=== PATIENT | female | born 1935 | race Caucasian/White ===

== ENCOUNTER 2018-08-23 10:44 | Inpatient (IN) ==
--- NOTE | 2018-08-23 12:23 | CT ---
EXAM: CT abdomen pelvis without contrast HISTORY: Nausea and vomiting with fever COMPARISON: None TECHNIQUE: Serial axial images of the abdomen pelvis were performed from the lung bases through the inferior pelvis without contrast. These were viewed in multiple planes. FINDINGS: The lung bases are clear. The heart is unremarkable. Evaluation is limited due to lack of contrast. The liver is unremarkable. Gallstones are present wi thout pericholecystic fluid or significant wall thickening. Adrenal glands are normal. There is a l ow attenuation exophytic lesion of the right kidney measuring 4.6 cm in diameter with indeterminate H ounsfield units. There is a exophytic lesion off the inferior aspect of the left kidney with Hounsfi eld units consistent with a cyst that measures 3.0 cm in diameter. The spleen is unremarkable. The pancreas is normal. There is a small hiatal hernia. The stomach and small bowel in the abdomen pelvis are unremarkable. The colon demonstrates sigmoid d iverticulosis with no discrete inflammatory changes and is largely decompressed. Colon is otherwise unremarkable. There is a fat-containing umbilical hernia. Pelvic soft tissues are normal. Urinary bladder is unremarkable. There is moderate atherosclerotic disease. The osseous structures demonstr ate degenerative disease of the lumbosacral spine with trace anterolisthesis of L4 on L5. IMPRESSION: 1. No acute intra-abdominal or pelvic process to account for patient's symptoms. 2. Diverticulosis without diverticulitis. 3. Gallstones without significant pericholecystic fluid or definitive wall thickening. If further e valuation is indicated, ultrasound may be obtained. 4. Bilateral low attenuation renal lesions suggestive of cysts with indeterminate Hounsfield units o f the right superior pole low attenuation lesion. If further evaluation is indicated, renal ultrasou nd may be obtained. 5. Small hiatal hernia and fat containing umbilical hernia. 6. Degenerative disease of the spine with grade 1 anterolisthesis of L4 on L5.
--- NOTE | 2018-08-23 12:28 | CT ---
EXAM: CT thoracic spine without contrast HISTORY: Back pain. COMPARISON: CT thoracic spine 05/13/2016 TECHNIQUE: Serial axial images of the thoracic spine were obtained without contrast. These were vie wed in multiple planes. FINDINGS: There is no acute compression fracture or subluxation. There is multilevel disc space narr owing and osteophyte formation. There is moderate facet arthropathy. No lytic or blastic lesion is noted. Previously noted T7-T8. Posterior bony spurring is unchanged. There is no significant abnor mal curvature of the thoracic spine. Limited views of the posterior ribs are normal. There is uncha nged central narrowing at C7-T1. There is been no significant interval change from prior CT. The limited views of the soft tissues demonstrate mild bibasilar atelectasis. There is atherosclerot ic disease of the visualized vessels. IMPRESSION: 1. No acute compression fracture or subluxation of the thoracic spine. 2. Relatively unchanged multilevel degenerative disease of the thoracic spine with mild central narr owing at C7-T1. If further evaluation is clinically indicated, MRI may be obtained.
--- NOTE | 2018-08-23 12:30 | CT ---
EXAM: CT right shoulder without contrast HISTORY: Right shoulder pain with fever and history of heavy lifting. COMPARISON: None TECHNIQUE: Serial axial images of the right shoulder were obtained without contrast. These were vie wed in multiple planes. FINDINGS: The scapula and clavicle demonstrate degenerative disease of the acromioclavicular joint. There is narrowing and osteophyte formation of the glenohumeral joint. The humerus is normal in appe arance. There is no displaced fracture or dislocation. There is no lytic or blastic lesion. The so ft tissues are normal. IMPRESSION: 1. No acute abnormality, fracture or dislocation of the right shoulder. 2. Moderate degenerative disease of the acromioclavicular joint and the glenohumeral joint.
--- NOTE | 2018-08-23 12:33 | CT ---
EXAM: CT LUMBAR SPINE HISTORY: Fever, back pain TECHNIQUE: CT lumbar spine without contrast. 3-mm axial sections. Coronal and sagittal reformation s. COMPARISON: 05/27/2016 FINDINGS: Bones are demineralized. There is diffuse moderate to severe degenerative disc and facet disease. N o acute fracture or significant loss of vertebral body height. Chronic right-sided pars defect at L4. Anterior spondylolisthesis of L4 on L5 is present measuring a bout 3.9 mm. The there is scoliosis convex to the left. Sacroiliac joints have moderate arthropathy . The degenerative changes lead to multilevel central neural foraminal stenosis most apparent at L4/L5 where there is severe central and left paracentral stenosis with moderate to severe left neural maddi inal narrowing. There is also severe stenosis at L3/L4 with bilateral neural foraminal narrowing. T here is a posterior bony spur at L2 which leads to focal central canal stenosis. No evidence of end plate destruction or paraspinal inflammation to indicate osteomyelitis or active d iskitis although correlation clinically can be made. MRI is available if indicated. Incidental find ings include cholelithiasis, atherosclerosis, kidneys cysts and dependent edema along the subcutaneou s level of the lower back. IMPRESSION: 1. Severe degenerative disc and facet disease most apparent at L4/L5. There is unilateral pars defe ct at L4 with anterior spondylolisthesis. These findings are likely symptomatic. No acute fracture is seen.
[2018-08-23] MEDS ORDERED: ROCEPHIN 1 GM in SODIUM CHLORIDE 50 ML IV STA (13:37)
--- NOTE | 2018-08-23 13:37 | ED.PDOC ---
General ED Provider: Dr. JOEY FOUNTAIN Chief Complaint: Back Pain Stated Complaint: low and mid back pain , right leg pain and rash Time Seen by Physician: 11:00 (seen with thelma from EMS) Mode of Arrival: Wheelchair Information Source: Patient Exam Limitations: No limitations Primary Care Provider: JULIO PORRAS Nursing and Triage Documentation Reviewed and Agree: Yes Does patient meet sepsis criteria?: Yes If yes, has appropriate treatment been initiated?: Yes System Inflammatory Response Syndrome: Not Applicable Sepsis Protocol: For patient's 13 years and over: Temp is 96.8 and below OR 101 and greater Pulse >90 BPM Resp >20/minute Acutely Altered Mental Status Are patient's symptoms suggestive of a new infection, such as: -Pneumonia -Skin, Soft Tissue -Endocarditis -UTI -Bone, Joint Infection -Implantable Device -Acute Abdominal Infection -Wound Infection -Meningitis -Blood Stream Catheter Infection -Unknown Miscellaneous Complaint Exam - Complex/Multi-System Complaint/Exam Onset/Duration: PT LIFTED A HEAVY OBJECT NOW HAS BACK PAIN ALSO A RASH RIGHT LOWER LEG Symptoms Are: Still present Episodes Lasting: Hours Initial Severity: Moderate Current Severity: Moderate Location of Pain: BACK RIGHT LEG Pain Radiates to: NO Character: DULL Aggravating: NONE Alleviating: NONE Associated Signs and Symptoms: Reports: Weakness, Edema (RIGHT LEG). Denies: Decreased responsiveness, Confusion, Agitation, Dizziness, Syncope, Headache, Short of air, Cough, Wheezing, Hemoptysis, Chest pain, Palpitations, Nausea, Vomiting, Diarrhea, Abdominal pain, Back pain, Dysuria, Hematemesis, Melena, Decreased oral intake, Fever, Diaphoresis, Immunocompromised, Anticoagulation Therapy, Recent medication changes, Indwelling medical device assembler, Prior MRSA, Prior VRE, Recent trauma, Remote trauma Recent Echo/LV Function: No Respiratory Distress: None JVD Present: No Tachypnea Present: No Stridor Present: No Abdominal Findings: Present: Normal findings Glascow Coma Scale (see protocol): 15 Meningeal Signs Positive: No Focal Weakness: Present: None Focal Sensory Loss: Present: None Gait: Normal Gag Reflex Present: Yes Babinski Sign: Negative Right, Negative Left Skin Findings: Present: Rash (RIGHT LEG SEE PHOTO) Joint Swelling Present: No Differential Diagnosis: Metabolic Abnormality, Other (CELLULITIS) Quality Indicators for Cardiac Chest Pain: EKG in 10min. Quality Indicators For Pneumonia/CAP: Antibiotics in 6hr-admit, SpO2 assessed, Empiric Antibiotic Rx, Mental status assessed Quality Indicator For Non-Traumatic Chest Pain/Syncope: EKG Performed Review of Systems - Review Of Systems Constitutional: Reports: Malaise, Weakness Eyes: Reports: No symptoms Ears, Nose, Mouth, Throat: Reports: No symptoms Respiratory: Reports: Cough Cardiac: Reports: No symptoms GI: Reports: No symptoms : Reports: No symptoms Musculoskeletal: Reports: Back pain, Other (EDEMA BILATERAL LOWER EXT) Skin: Reports: Rash (RIGHT LOWER LEG SEE PHOTOS) Neurological: Reports: No symptoms Endocrine: Reports: No symptoms Hematologic/Lymphatic: Reports: No symptoms All Other Systems: Reviewed and Negative Past Medical History - Past Medical History Previously Healthy: Yes Endocrine: Reports: DM 2, Dyslipidemia Cardiovascular: Reports: Hypertension Respiratory: Reports: None Hematological: Reports: None Gastrointestinal: Reports: GERD Genitourinary: Reports: None Neuro/Psych: Reports: None Musculoskeletal: Reports: None Cancer: Reports: None Last Menstrual Period: menopause - Surgical History General Surgical History: Reports: None - Family History Family History: Reports: None - Social History Smoking Status: Never smoker Hx Substance Use: No Alcohol Screening: None Physical Exam - Physical Exam Appearance: Ill-appearing Ill-appearing: Mild Pain Distress: Mild Eyes: FRANK, EOMI, Conjunctiva clear ENT: Ears normal, Nose normal, Oropharynx normal Respiratory: Airway patent, Breath sounds clear, Breath sounds equal, Respirations nonlabored Cardiovascular: RRR, Pulses normal, No rub, No murmur GI/: Soft, Nontender, No masses, Bowel sounds normal, No Organomegaly Musculoskeletal: Normal strength, ROM intact, No edema, No calf tenderness Skin: Warm, Dry (RASH RIGHT LEG SEE PHOOTS) Neurological: Sensation intact, Motor intact, Reflexes intact, Cranial nerves intact, Alert, Oriented Psychiatric: Affect appropriate, Mood appropriate Interpretation - Radiology Interpretation Radiology Interpretation By: Radiologist Radiology Results: No acute changes Physician Notification - Case Discussed Physician Notified: PMD Time of Notification: 13:42 (ADMITT PMD SAW PT IN THE ED ) Admit To: Inpatient Critical Care Note - Critical Care Note Total Time (mins): 0 Course - Course Hematology/Chemistry: 08/23/18 11:08 08/23/18 11:08 Orders, Labs, Meds: Lab Review 08/23/18 08/23/18 08/23/18 10:51 11:08 11:08 WBC 16.09 H RBC 4.18 L Hgb 10.7 L Hct 34.9 L MCV 83.5 MCH 25.6 L MCHC 30.7 L RDW Coeff of Corby 17.0 H Plt Count 264 Immature Gran % (Auto) 0.4 Neut % (Auto) 84.8 Lymph % (Auto) 9.2 L Cass % (Auto) 5.5 Eos % (Auto) 0.0 Baso % (Auto) 0.1 Immature Gran # (Auto) 0.1 Neut # (Auto) 13.6 H Lymph # (Auto) 1.5 Cass # (Auto) 0.9 Eos # (Auto) 0.0 Baso # (Auto) 0.0 Puncture Site R radial O2 Saturation 95.0 ABG pH 7.422 ABG pCO2 30.9 L ABG pO2 71.0 L ABG HCO3 20.2 L ABG Total CO2 21 L ABG Base Excess -4 L Willis Test + FiO2 % 21.0 Sodium 134.1 L Potassium 4.21 Chloride 101.2 Carbon Dioxide 22.9 Anion Gap 14.21 BUN 21.4 H Creatinine 0.79 Estimated GFR (MDRD) 70.00 BUN/Creatinine Ratio 27.08 Glucose 90.5 Lactic Acid Calcium 9.07 Total Bilirubin 0.64 AST 24.0 ALT 19.1 Alkaline Phosphatase 43.6 L Total Creatine Kinase 34.1 Troponin I < 0.012 NT-Pro-B Natriuret Pep Total Protein 6.71 Albumin 3.82 Globulin 2.89 Albumin/Globulin Ratio 1.32 Procalcitonin Digoxin 08/23/18 08/23/18 08/23/18 11:08 11:08 11:08 WBC RBC Hgb Hct MCV MCH MCHC RDW Coeff of Corby Plt Count Immature Gran % (Auto) Neut % (Auto) Lymph % (Auto) Cass % (Auto) Eos % (Auto) Baso % (Auto) Immature Gran # (Auto) Neut # (Auto) Lymph # (Auto) Cass # (Auto) Eos # (Auto) Baso # (Auto) Puncture Site O2 Saturation ABG pH ABG pCO2 ABG pO2 ABG HCO3 ABG Total CO2 ABG Base Excess Willis Test FiO2 % Sodium Potassium Chloride Carbon Dioxide Anion Gap BUN Creatinine Estimated GFR (MDRD) BUN/Creatinine Ratio Glucose Lactic Acid 1.93 Calcium Total Bilirubin AST ALT Alkaline Phosphatase Total Creatine Kinase Troponin I NT-Pro-B Natriuret Pep 3110.000 H Total Protein Albumin Globulin Albumin/Globulin Ratio Procalcitonin 9.68 Digoxin 08/23/18 11:12 WBC RBC Hgb Hct MCV MCH MCHC RDW Coeff of Corby Plt Count Immature Gran % (Auto) Neut % (Auto) Lymph % (Auto) Cass % (Auto) Eos % (Auto) Baso % (Auto) Immature Gran # (Auto) Neut # (Auto) Lymph # (Auto) Cass # (Auto) Eos # (Auto) Baso # (Auto) Puncture Site O2 Saturation ABG pH ABG pCO2 ABG pO2 ABG HCO3 ABG Total CO2 ABG Base Excess Willis Test FiO2 % Sodium Potassium Chloride Carbon Dioxide Anion Gap BUN Creatinine Estimated GFR (MDRD) BUN/Creatinine Ratio Glucose Lactic Acid Calcium Total Bilirubin AST ALT Alkaline Phosphatase Total Creatine Kinase Troponin I NT-Pro-B Natriuret Pep Total Protein Albumin Globulin Albumin/Globulin Ratio Procalcitonin Digoxin 0.64 L Orders Category Date Time Status ABG DRAW REQUEST Stat CARDIO 08/23/18 10:51 Completed EKG-(ED ONLY) Stat CARDIO 08/23/18 10:50 Completed ABG Stat LAB 08/23/18 10:51 Completed BLOOD CULTURE (ED ONLY) Stat LAB 08/23/18 11:08 Received CBC W/ AUTO DIFF Stat LAB 08/23/18 11:08 Completed COMPREHENSIVE METABOLIC PANEL Stat LAB 08/23/18 11:08 Completed CREATINE KINASE Stat LAB 08/23/18 11:08 Completed DIGOXIN Stat LAB 08/23/18 11:12 Completed LACTIC ACID Stat LAB 08/23/18 11:08 Completed PROBNP [NT-PROBNP] Stat LAB 08/23/18 11:08 Completed PROCALCITONIN Stat LAB 08/23/18 11:08 Completed TROPONIN I Stat LAB 08/23/18 11:08 Completed URINALYSIS C & S IF INDICATED Stat LAB 08/23/18 10:50 Uncollected CHEST, 1V AP ONLY Stat RADS 08/23/18 10:[address] ABD/PEL WO RENAL STONE PROT Stat RADS 08/23/18 10:[address] LUMBAR SPINE W/O CONTRAST Stat RADS 08/23/18 10:[address] SHOULDER RIGHT W/O CONTRAST Stat RADS 08/23/18 10:[address] THORACIC SPINE W/O CONTRAST Stat RADS 08/23/18 10:54 Completed Vital Signs: Temp Pulse Resp BP Pulse Ox 08/23/18 10:46 100.1 F H 108 H 20 99/63 92 L Departure - Departure Time of Disposition: 13:43 Disposition: ADMITTED INPATIENT Discharge Problem: Cellulitis of right leg Condition: Good Pt referred to PMD for follow-up: Yes IPMP verified?: No Allergies/Adverse Reactions: Allergies No Known Allergies Allergy (Unverified 08/23/18 10:55) Home Medications: Ambulatory Orders Allopurinol [Zyloprim] 100 mg PO DAILY 08/23/18 Digoxin [Digox] 125 mcg PO DAILY 08/23/18 Furosemide [Lasix Tab] 40 mg PO QDAC 08/23/18 Gabapentin [Neurontin] 100 mg PO Q6H 08/23/18 Glimepiride [Amaryl] 2 mg PO DAILYWM 08/23/18 Lisinopril [Zestril] 20 mg PO DAILY 08/23/18 Pantoprazole Sodium [Protonix] 40 mg PO QDAC 08/23/18 Pioglitazone HCl/Metformin HCl [Actoplus Met 15 mg-850 mg Tab] 1 each PO BID PRN 08/23/18 Potassium Chloride [Micro-K Cap] 10 meq PO DAILY 08/23/18 Rosuvastatin Calcium [Crestor] 5 mg PO BEDTIME 08/23/18 Sotalol HCl [Betapace] 80 mg PO BID 08/23/18 Vit A/Vit C/Biotin/Zinc/Copper [Hair, Skin and Nails Softgel] 1 each PO DAILY Warfarin Sodium [Coumadin] 3 mg PO QPM 08/23/18
[2018-08-23] MEDS ORDERED: LASIX IVP STA (13:39)
[2018-08-23] MEDS ORDERED: VANCOMYCIN 1 GM in SODIUM CHLORIDE 250 ML IV STA (13:39)
[2018-08-23] MEDS ORDERED: ROCEPHIN ONE (13:44)
--- NOTE | 2018-08-23 13:57 | DI ---
EXAM: CHEST FRONTAL VIEW HISTORY: Cough. COMPARISON: None FINDINGS: Prominent heart size. There is at least mild atherosclerotic disease. There is diffuse, chronic appearing interstitial accentuation. No obvious consolidated pneumonia or acute infiltrate. No pleural fluid or pneumothorax IMPRESSION: 1. No acute cardiopulmonary process identified.
[2018-08-23] MEDS: SODIUM CHLORIDE 1,000 ML IV SCH (14:04)
--- NOTE | 2018-08-23 14:34 | CT ---
EXAM: CT scan of the chest without contrast HISTORY: Cough TECHNIQUE: Imaging of the chest was performed without contrast. 5 mm thin axial images and coronal and sagittal reconstructions were provided for interpretation. FINDINGS: The heart is normal size. No mediastinal abnormalities are seen. There is atheroscleroti c calcification of the thoracic aorta and coronary arteries. There is no infiltrate or consolidation . Small calcified gallstones are identified. No lytic or blastic lesions are seen within the osseou s structures. IMPRESSION: No acute abnormalities are seen within the thorax.
[2018-08-23 14:52] VITALS: BMI 33.3
[2018-08-23] MEDS ORDERED: DECADRON 4 MG/ML SDV IM STA (15:00)
[2018-08-23] MEDS: NEURONTIN PO SCH ×2 (15:42→21:12)
[2018-08-23] MEDS: TORADOL IVP SCH ×2 (15:42→21:12)
[2018-08-23] MEDS: ROCEPHIN 1 GM in SODIUM CHLORIDE 50 ML IV SCH (16:10)
[2018-08-23] MEDS: COUMADIN PO SCH (17:34)
[2018-08-23] MEDS ORDERED: NON-FORMULARY MEDICATION (Rosuvastatin Calcium [Crestor] 5 MG) PO SCH (21:00)
[2018-08-23] MEDS: BETAPACE PO SCH (21:11)
[2018-08-23] MEDS: CRESTOR ONE ×2 (21:11→21:24)
[2018-08-23] MEDS: HUMULIN R SUBCUT PRN (21:15)
[2018-08-24] MEDS: NEURONTIN PO SCH ×4 (02:22→23:21)
[2018-08-24] MEDS: LASIX TAB PO SCH (05:50)
[2018-08-24] MEDS: TORADOL IVP SCH ×3 (05:50→20:32)
[2018-08-24] MEDS: PROTONIX PO SCH (05:50)
[2018-08-24] MEDS: SODIUM CHLORIDE 1,000 ML IV SCH (07:40)
[2018-08-24] MEDS ORDERED: DECADRON 4 MG/ML SDV IVP STA (08:34)
[2018-08-24] MEDS ORDERED: NON-FORMULARY MEDICATION (Lisinopril [Zestril] 20 MG) PO SCH (09:00)
--- NOTE | 2018-08-24 09:17 | PCM.PROG ---
Attending Provider: ATTENDING PROVIDER: Dr. JULIO PORRAS This patient is seen with Courtney Erickson, Nurse Practitioner. DATE OF SERVICE: 08/24/18 SUBJECTIVE: This 82 year old WHITE/ F was hospitalized 08/23/18. The patient is resting comfortably. Leg redness is slightly improved. No fever today. Leg pain is better. REVIEW OF SYSTEMS: CONSTITUTIONAL: No night sweats. No fatigue, malaise, lethargy. No fever or chills. HEENT: Eyes: No visual changes. No eye pain. No eye discharge. ENT: No runny nose. No epistaxis. No sinus pain. No odynophagia. No congestion. RESPIRATORY: No cough, no congestion. No hemoptysis. No shortness of breath. CARDIOVASCULAR: No angina symptoms. No CHF symptoms. No atypical chest pain for CAD. No palpitations. No orthopnea.. GASTROINTESTINAL: No abdominal pain. No nausea or vomiting. No diarrhea or constipation. No hematemesis. No hematochezia. GENITOURINARY: No urgency. No frequency. No dysuria. No hematuria. No obstructive symptoms. No discharge. No pain. No significant abnormal bleeding. MUSCULOSKELETAL: No musculoskeletal pain; no joint swelling. Back pain. NEUROLOGICAL: Awake, alert, oriented to time, place and person. No headache. No neck pain. No syncope. No seizures. No dizziness. PSYCHIATRIC: Not anxious. No depression. No suicidal thoughts. No homicidal thoughts. SKIN: No rash. No lesions. No wounds. Right leg redness. ENDOCRINE: No unexplained weight loss. No weight gain. HEMATOLOGIC/LYMPHATIC: No anemia. No purpura. No petechiae. No prolonged or excessive bleeding. No palpable lymph nodes. PHYSICAL EXAMINATION: GENERAL: The patient is awake, alert and oriented, lying/sitting in bed in no distress. VITAL SIGNS: Temperature 97.5 F, Pulse 84, Respiratory Rate 18, BP 94/59, Pulse Ox 98% HEENT: Head normocephalic, atraumatic. Eyes: Extraocular muscles are intact. Pupils are equal, round and reactive to light and accommodation. Ears: No lesions. Nose appeared normal. Throat: No exudate or erythema. NECK: Supple. No JVD, no carotid bruit. No lymphadenopathy or thyromegaly. LUNGS: Diminished breath sounds. Clear to auscultation. Percussion note normal. Chest symmetrical. HEART: Irregular heart rate. S1, S2, no S3. No murmurs. No cyanosis or clubbing. No ascites. Pulses: Dorsalis pedis and posterior tibial pulses +1 to +2 both sides. ABDOMEN: Soft. Non-tender. Bowel sounds active. No CVA tenderness. No mass felt. EXTREMITIES: +1 leg edema with slight erythema to the right lower extremity. Full range of motion of all extremities, equal. NEUROLOGIC: No focal deficit. Cranial nerves II through XII are grossly intact. No headache, no double vision or headache. SKIN: Not dry. Intact. Turgor-normal. LYMPHATIC: No palpable lymph nodes/no lymphedema. MUSCULOSKELETAL: Normal joints with no swelling. Muscle tone is normal. LAB REVIEW: 08/24/18 04:00 08/24/18 04:00 08/24/18 04:00: WBC 21.77 H D, RBC 3.36 L, Hgb 8.6 L, Hct 28.1 L D, MCV 83.6, MCH 25.6 L, MCHC 30.6 L, RDW Coeff of Corby 17.3 H, Plt Count 221, Immature Gran % (Auto) 2.2, Neut % (Auto) 77.3, Lymph % (Auto) 14.9, [place] % (Auto) 5.5, Eos % (Auto) 0.0, Baso % (Auto) 0.1, Immature Gran # (Auto) 0.5, Neut # (Auto) 16.8 H , Lymph # (Auto) 3.3, [place] # (Auto) 1.2, Eos # (Auto) 0.0, Baso # (Auto) 0.0 08/24/18 04:00: Sodium 132.9 L, Potassium 4.50, Chloride 101.6, Carbon Dioxide 26.7, Anion Gap 9.10, BUN 27.9 H, Creatinine 1.25, Estimated GFR (MDRD) 41.00, BUN/Creatinine Ratio 22.32, Glucose 114.7 H, Calcium 8.41, Total Bilirubin 0.35 , AST 17.3, ALT 14.8, Alkaline Phosphatase 33.5 L, Total Creatine Kinase 36.7, Troponin I < 0.012, Total Protein 5.89 L, Albumin 3.05 L, Globulin 2.84, Albumin /Globulin Ratio 1.07 08/24/18 04:00: PT 18.8 H, INR 1.92 08/23/18 20:05: Total Creatine Kinase 46.9, Troponin I < 0.012 08/23/18 15:05: Urine Color Yellow, Urine Clarity Clear, Urine pH 5.0, Ur Specific [place] 1.025, Urine Protein Negative, Urine Glucose (UA) Negative, Urine Ketones Negative, Urine Blood Negative, Urine Nitrite Negative, Urine Bilirubin Negative, Urine Urobilinogen 0.2, Ur Leukocyte Esterase Negative 08/23/18 11:12: Digoxin 0.64 L 08/23/18 11:08: NT-Pro-B Natriuret Pep 3110.000 H 08/23/18 11:08: Procalcitonin 9.68 08/23/18 11:08: Lactic Acid 1.93 08/23/18 11:08: Sodium 134.1 L, Potassium 4.21, Chloride 101.2, Carbon Dioxide 22.9, Anion Gap 14.21, BUN 21.4 H, Creatinine 0.79, Estimated GFR (MDRD) 70.00, BUN/Creatinine Ratio 27.08, Glucose 90.5, Calcium 9.07, Total Bilirubin 0.64, AST 24.0, ALT 19.1, Alkaline Phosphatase 43.6 L, Total Creatine Kinase 34.1, Troponin I < 0.012, Total Protein 6.71, Albumin 3.82, Globulin 2.89, Albumin/ Globulin Ratio 1.32 08/23/18 11:08: WBC 16.09 H, RBC 4.18 L, Hgb 10.7 L, Hct 34.9 L, MCV 83.5, MCH 25.6 L, MCHC 30.7 L, RDW Coeff of Corby 17.0 H, Plt Count 264, Immature Gran % ( Auto) 0.4, Neut % (Auto) 84.8, Lymph % (Auto) 9.2 L, [place] % (Auto) 5.5, Eos % ( Auto) 0.0, Baso % (Auto) 0.1, Immature Gran # (Auto) 0.1, Neut # (Auto) 13.6 H, Lymph # (Auto) 1.5, [place] # (Auto) 0.9, Eos # (Auto) 0.0, Baso # (Auto) 0.0 08/23/18 11:00: APTT 33.4 08/23/18 10:51: Puncture Site R radial, O2 Saturation 95.0, ABG pH 7.422, ABG pCO2 30.9 L, ABG pO2 71.0 L, ABG HCO3 20.2 L, ABG Total CO2 21 L, ABG Base Excess -4 L, Willis Test +, FiO2 % 21.0 ASSESSMENT: Please see below. 1. Right leg cell 2. Chronic leg edema 3. Atrial fibrillation-Coumadin 4. History of CVA PLAN: 1. Stool for blood 2. Discontinue IV fluids 3. Decadron 1cc 4. U/A Plan and coordination of the patient's care discussed in the presence of [employer] Engineer and nurse. SCRIBED BY: Olimpia ANTOINE scribed while in presence of service performed by Dr. Porras/Courtney Erickson APRN on 08/24/18 ([id number])
[2018-08-24] MEDS: ZESTRIL PO SCH (09:28)
[2018-08-24] MEDS: MICRO-K CAP PO SCH (09:29)
[2018-08-24] MEDS: ZYLOPRIM PO SCH (09:30)
[2018-08-24] MEDS: BETAPACE PO SCH ×2 (09:30→20:33)
[2018-08-24] MEDS: LANOXIN PO SCH (09:31)
[2018-08-24] MEDS ORDERED: DECADRON 4 MG/ML SDV IM STA (09:40)
[2018-08-24] MEDS: ROCEPHIN 1 GM in SODIUM CHLORIDE 50 ML IV SCH (10:04)
--- NOTE | 2018-08-24 11:06 | US ---
EXAM: Ultrasound venous Doppler right and left lower extermity HISTORY: Pain, edema COMPARISON: None TECHNIQUE: Venous duplex ultrasound of the right and left lower extremity was performed using color, barton-scale, and Doppler flow imaging. FINDINGS: There is normal color flow and compression of the right and left common femoral, greater s aphenous, profunda femoral, femoral, popliteal, peroneal, posterior tibial, and anterior tibial veins without evidence of intraluminal thrombus. There is an avascular fluid collection right popliteal f nicolas measuring 1.0 x 3.2 x 5.6 cm, most consistent with Espinoza's cyst. Bilateral lower extremity subc utaneous edema. IMPRESSION: 1. No right or left lower extremity deep venous thrombosis. 2. Right Espinoza's cyst
[2018-08-24] MEDS: HUMULIN R SUBCUT PRN ×3 (12:05→20:31)
[2018-08-24] MEDS: COUMADIN PO SCH (16:00)
[2018-08-24] MEDS ORDERED: COLACE PO SCH (17:30)
[2018-08-24] MEDS: COLACE PO SCH (20:33)
[2018-08-24] MEDS: CRESTOR PO SCH (20:33)
[2018-08-25] MEDS: TORADOL IVP SCH (05:40)
[2018-08-25] MEDS: PROTONIX PO SCH ×2 (05:41→16:24)
[2018-08-25] MEDS: NEURONTIN PO SCH ×3 (05:41→17:04)
[2018-08-25] MEDS: LASIX TAB PO SCH (05:41)
[2018-08-25] MEDS ORDERED: MILK OF MAGNESIA PO STA (08:38)
[2018-08-25] MEDS ORDERED: TORADOL IVP PRN (08:38)
[2018-08-25] MEDS: LANOXIN PO SCH (08:59)
[2018-08-25] MEDS: COLACE PO SCH (09:00)
[2018-08-25] MEDS: ZESTRIL PO SCH (09:00)
[2018-08-25] MEDS: BETAPACE PO SCH ×2 (09:01→21:22)
[2018-08-25] MEDS: ZYLOPRIM PO SCH (09:01)
[2018-08-25] MEDS: MICRO-K CAP PO SCH (09:01)
--- NOTE | 2018-08-25 09:18 | PCM.PROG ---
Attending Provider: ATTENDING PROVIDER: Dr. JULIO PORRAS This patient is seen with Courtney Erickson, Nurse Practitioner. DATE OF SERVICE: 08/25/18 SUBJECTIVE: This 82 year old WHITE/ F was hospitalized 08/23/18. The patient is resting comfortably. Redness on right lower extremity has improved. She is eating and drinking well. Both legs with edema. REVIEW OF SYSTEMS: CONSTITUTIONAL: No night sweats. No fatigue, malaise, lethargy. No fever or chills. HEENT: Eyes: No visual changes. No eye pain. No eye discharge. ENT: No runny nose. No epistaxis. No sinus pain. No odynophagia. No congestion. RESPIRATORY: No cough, no congestion. No hemoptysis. No shortness of breath. CARDIOVASCULAR: No angina symptoms. No CHF symptoms. No atypical chest pain for CAD. No palpitations. No orthopnea.. GASTROINTESTINAL: No abdominal pain. No nausea or vomiting. No diarrhea or constipation. No hematemesis. No hematochezia. GENITOURINARY: No urgency. No frequency. No dysuria. No hematuria. No obstructive symptoms. No discharge. No pain. No significant abnormal bleeding. MUSCULOSKELETAL: No musculoskeletal pain; no joint swelling. NEUROLOGICAL: Awake, alert, oriented to time, place and person. No headache. No neck pain. No syncope. No seizures. No dizziness. PSYCHIATRIC: Not anxious. No depression. No suicidal thoughts. No homicidal thoughts. SKIN: No rash. No lesions. No wounds. Chronic leg edema right leg redness- improving. ENDOCRINE: No unexplained weight loss. No weight gain. HEMATOLOGIC/LYMPHATIC: No anemia. No purpura. No petechiae. No prolonged or excessive bleeding. No palpable lymph nodes. PHYSICAL EXAMINATION: GENERAL: The patient is awake, alert and oriented, lying/sitting in bed in no distress. VITAL SIGNS: Temperature 97.6 F, Pulse 62, Respiratory Rate 18, BP 121/66, Pulse Ox 100% HEENT: Head normocephalic, atraumatic. Eyes: Extraocular muscles are intact. Pupils are equal, round and reactive to light and accommodation. Ears: No lesions. Nose appeared normal. Throat: No exudate or erythema. NECK: Supple. No JVD, no carotid bruit. No lymphadenopathy or thyromegaly. LUNGS: Diminished breath sounds. Clear to auscultation. Percussion note normal. Chest symmetrical. HEART: Irregular heart rate consistent with atrial fibrillation. S1, S2, no S3. No murmurs. No cyanosis or clubbing. No ascites. Pulses: Dorsalis pedis and posterior tibial pulses +1 to +2 both sides. ABDOMEN: Soft. Non-tender. Bowel sounds active. No CVA tenderness. No mass felt. EXTREMITIES: +1 bilateral lower extremity edema. Full range of motion of all extremities, equal. Improving redness anterior aspect of right leg. NEUROLOGIC: No focal deficit. Cranial nerves II through XII are grossly intact. No headache, no double vision or headache. SKIN: Not dry. Intact. Turgor-normal. LYMPHATIC: No palpable lymph nodes/no lymphedema. MUSCULOSKELETAL: Normal joints with no swelling. Muscle tone is normal. LAB REVIEW: 08/25/18 05:10 08/25/18 05:10 08/25/18 05:10: Sodium 134.0 L, Potassium 4.44, Chloride 102.2, Carbon Dioxide 25.5, Anion Gap 10.74, BUN 44.6 H, Creatinine 1.50 H, Estimated GFR (MDRD) 33.00 , BUN/Creatinine Ratio 29.73, Glucose 115.2 H, Calcium 8.41, Total Bilirubin 0.21, AST 18.9, ALT 14.8, Alkaline Phosphatase 39.0 L, Total Protein 6.18 L, Albumin 3.13 L, Globulin 3.05, Albumin/Globulin Ratio 1.02 08/25/18 05:10: WBC 19.41 H, RBC 3.23 L, Hgb 8.5 L, Hct 28.1 L, MCV 87.0, MCH 26.3 L, MCHC 30.2 L, RDW Coeff of Corby 17.7 H, Plt Count 201, Immature Gran % ( Auto) 1.1, Neut % (Auto) 79.8, Lymph % (Auto) 13.1, Dare % (Auto) 5.8, Eos % ( Auto) 0.1, Baso % (Auto) 0.1, Immature Gran # (Auto) 0.2, Neut # (Auto) 15.5 H, Lymph # (Auto) 2.5, Dare # (Auto) 1.1, Eos # (Auto) 0.0, Baso # (Auto) 0.0 ASSESSMENT: Please see below. 1. Right leg cellulitis 2. Chronic leg edema 3. Atrial fibrillation-Coumadin 4. History of CVA PLAN: Make Toradol 30 IV PRN Q 12 Milk of Magnesia Encourage oral fluids Plan and coordination of the patient's care discussed in the presence of Plane Captain and nurse. SCRIBED BY: Olimpia ANTOINE scribed while in presence of service performed by Dr. Porras/Courtney Erickson APRN on 08/25/18 ([id number])
[2018-08-25] MEDS: ROCEPHIN 1 GM in SODIUM CHLORIDE 50 ML IV SCH (09:49)
[2018-08-25] MEDS: HUMULIN R SUBCUT PRN ×2 (11:41→17:04)
--- NOTE | 2018-08-25 14:25 | PN ---
DATE OF SERVICE: 08/23/18 SUBJECTIVE: The patient was seen and examined in the emergency room. The patient has multiple medical problems. Her problems are cough, congestion, also has right left swelling with redness with evidence of cellulitis. She is feeling weak and tired. Her atrial fibrillation has rapid ventricular response. REVIEW OF SYSTEMS: CONSTITUTIONAL: No night sweats. No fatigue, malaise, lethargy. No fever or chills. HEENT: Eyes: No visual changes. No eye pain. No eye discharge. ENT: No runny nose. No epistaxis. No sinus pain. No sore throat. No odynophagia. No congestion. RESPIRATORY: Cough, Congestion. No hemoptysis. No shortness of breath. CARDIOVASCULAR: No angina symptoms. No CHF symptoms. No atypical chest pain for CAD. No palpitations. No orthopnea. GASTROINTESTINAL: No abdominal pain. No nausea or vomiting. No diarrhea or constipation. No hematemesis. No hematochezia. GENITOURINARY: No urgency. No frequency. No dysuria. No hematuria. No obstructive symptoms. No discharge. No pain. No significant abnormal bleeding. MUSCULOSKELETAL: No musculoskeletal pain; no joint swelling. NEUROLOGICAL: No headache. No neck pain. No syncope. No seizures. No dizziness. PSYCHIATRIC: Not anxious. No depression. No suicidal thoughts. No homicidal thoughts. SKIN: No rash. No lesions. No wounds. ENDOCRINE: No unexplained weight loss. No weight gain. HEMATOLOGIC/LYMPHATIC: No anemia. No purpura. No petechiae. No prolonged or excessive bleeding. No palpable lymph nodes. PHYSICAL EXAMINATION: HEENT: Head normocephalic, atraumatic. Eyes: Extraocular muscles are intact. Pupils are equal, round and reactive to light and accommodation. Ears: No lesions. Nose appeared normal. Throat: No exudate or erythema. NECK: Supple. No JVD, no carotid bruit. No lymphadenopathy or thyromegaly. LUNGS: Decreased breath sounds with mild wheezing but good air entry. Clear to auscultation. Percussion note normal. Chest symmetrical. HEART: S1, S2, no S3. No murmurs. No cyanosis or clubbing. No ascites. Pulses: Dorsalis pedis and posterior tibial pulses +1 to +2 both sides. ABDOMEN: Soft. Nontender. Bowel sounds active. No CVA tenderness. No mass felt. EXTREMITIES: No edema. Full range of motion of all extremities, equal. NEUROLOGIC: No focal deficit. Cranial nerves II through XII are grossly intact. No headache, no double vision or headache. SKIN: Not dry. Intact. Turgor - normal. LYMPHATIC: No palpable lymph nodes/no lymphedema. MUSCULOSKELETAL: Normal joints with no swelling. Muscle tone is normal. LABS: ABG showed pO2 71, pCO2 30, pH 7.4 with 95% saturation. PLAN: 1. Hospitalized this patient 2. IV antibiotics 3. Steroids 4. NEBS treatment 5. Elevated legs 6. Venous scan in the morning TIME SPENT: More than 30 minutes. Plan and coordination of the patient's care discussed in the presence of nurse. ANJANA
--- NOTE | 2018-08-25 14:28 | PN ---
DATE OF SERVICE: 08/24/18 SUBJECTIVE: The patient was seen and examined with Nurse Practitioner. The patient is feeling a lot better. Her leg swelling is much less than yesterday. Cellulitis seems to be resolving. She doesn't feel that tight. Cardiovascular status is stable. Bronchitis improving. TIME SPENT: More than 30 minutes. Plan and coordination of the patient's care discussed in the presence of nurse. ANJANA
[2018-08-25] MEDS: COUMADIN PO SCH (16:24)
[2018-08-25] MEDS ORDERED: DULCOLAX RC STA (16:40)
[2018-08-25] MEDS: CRESTOR PO SCH (21:22)
[2018-08-26] MEDS: NEURONTIN PO SCH ×3 (05:34→12:40)
[2018-08-26] MEDS: PROTONIX PO SCH (05:42)
[2018-08-26] MEDS: LASIX TAB PO SCH (05:42)
[2018-08-26] MEDS: MICRO-K CAP PO SCH (07:26)
[2018-08-26] MEDS ORDERED: ZAROXOLYN PO STA (08:39)
[2018-08-26] MEDS: COLACE PO SCH (09:30)
[2018-08-26] MEDS: ZESTRIL PO SCH (09:30)
[2018-08-26] MEDS: ZYLOPRIM PO SCH (09:30)
[2018-08-26] MEDS: BETAPACE PO SCH (09:30)
[2018-08-26] MEDS: LANOXIN PO SCH (09:32)
--- NOTE | 2018-08-26 09:32 | PCM.PROG ---
Attending Provider: ATTENDING PROVIDER: Dr. JULIO PORRAS This patient is seen with Courtney Erickson, Nurse Practitioner. DATE OF SERVICE: 08/26/18 SUBJECTIVE: This 82 year old WHITE/ F was hospitalized 08/23/18. The patient is resting comfortably. The redness of the right lower extremity showed significant improvement and no more pain. Labs have improved. HGB is up, WBC down and kidney function is improved. REVIEW OF SYSTEMS: CONSTITUTIONAL: No night sweats. No fatigue, malaise, lethargy. No fever or chills. HEENT: Eyes: No visual changes. No eye pain. No eye discharge. ENT: No runny nose. No epistaxis. No sinus pain. No odynophagia. No congestion. RESPIRATORY: No cough, no congestion. No hemoptysis. No shortness of breath. CARDIOVASCULAR: No angina symptoms. No CHF symptoms. No atypical chest pain for CAD. No palpitations. No orthopnea.. GASTROINTESTINAL: No abdominal pain. No nausea or vomiting. No diarrhea or constipation. No hematemesis. No hematochezia. GENITOURINARY: No urgency. No frequency. No dysuria. No hematuria. No obstructive symptoms. No discharge. No pain. No significant abnormal bleeding. MUSCULOSKELETAL: No musculoskeletal pain; no joint swelling. Chronic back pain. NEUROLOGICAL: Awake, alert, oriented to time, place and person. No headache. No neck pain. No syncope. No seizures. No dizziness. PSYCHIATRIC: Not anxious. No depression. No suicidal thoughts. No homicidal thoughts. SKIN: No rash. No lesions. No wounds. Chronic edema. ENDOCRINE: No unexplained weight loss. No weight gain. HEMATOLOGIC/LYMPHATIC: No anemia. No purpura. No petechiae. No prolonged or excessive bleeding. No palpable lymph nodes. PHYSICAL EXAMINATION: GENERAL: The patient is awake, alert and oriented, sitting in chair in no distress. VITAL SIGNS: Temperature 97.6 F, Pulse 73, Respiratory Rate 16, BP 124/73, Pulse Ox 99% HEENT: Head normocephalic, atraumatic. Eyes: Extraocular muscles are intact. Pupils are equal, round and reactive to light and accommodation. Ears: No lesions. Nose appeared normal. Throat: No exudate or erythema. NECK: Supple. No JVD, no carotid bruit. No lymphadenopathy or thyromegaly. LUNGS: Clear to auscultation. Percussion note normal. Chest symmetrical. HEART: Irregular heart rate. S1, S2, no S3. No murmurs. No cyanosis or clubbing. No ascites. Pulses: Dorsalis pedis and posterior tibial pulses +1 to +2 both sides. ABDOMEN: Soft. Non-tender. Bowel sounds active. No CVA tenderness. No mass felt. EXTREMITIES: +1 bilateral lower extremity edema. Full range of motion of all extremities, equal. NEUROLOGIC: No focal deficit. Cranial nerves II through XII are grossly intact. No headache, no double vision or headache. SKIN: Not dry. Intact. Turgor-normal. Improving geovanny erythema LYMPHATIC: No palpable lymph nodes/no lymphedema. MUSCULOSKELETAL: Normal joints with no swelling. Muscle tone is normal. LAB REVIEW: 08/26/18 06:15 08/26/18 06:15 08/26/18 06:15: Sodium 134.5, Potassium 4.60, Chloride 102.6, Carbon Dioxide 26.3, Anion Gap 10.20, BUN 43.4 H, Creatinine 1.13, Estimated GFR (MDRD) 46.00, BUN/Creatinine Ratio 38.40, Glucose 112.0 H, Calcium 8.48, Total Bilirubin 0.25 , AST 18.3, ALT 15.1, Alkaline Phosphatase 43.3 L, Total Protein 6.52, Albumin 3.36 L, Globulin 3.16, Albumin/Globulin Ratio 1.06 08/26/18 06:15: PT 18.0 H, INR 1.83 08/26/18 06:15: WBC 14.29 H D, RBC 3.51 L, Hgb 9.1 L, Hct 29.3 L, MCV 83.5, MCH 25.9 L, MCHC 31.1 L, RDW Coeff of Corby 17.2 H, Plt Count 241, Immature Gran % ( Auto) 1.0, Neut % (Auto) 67.5, Lymph % (Auto) 24.6, [place] % (Auto) 6.3, Eos % ( Auto) 0.5, Baso % (Auto) 0.1, Immature Gran # (Auto) 0.2, Neut # (Auto) 9.6 H, Lymph # (Auto) 3.5 H, [place] # (Auto) 0.9, Eos # (Auto) 0.1, Baso # (Auto) 0.0 08/25/18 18:23: Stl Occult Blood (IFOB) Positive, Stool Occult Blood #2 No specimen received, Stool Occult Blood #3 No specimen received ASSESSMENT: Please see below. 1. Right leg cellulitis 2. Chronic leg edema 3. Atrial fibrillation-Coumadin 4. History of CVA PLAN: 1. Omnicef 300mg Q 12 for 7 days 2. Zaroxlyn 0.25mg before discharge 3. Take Lasix as prescribed. 4. Tramadol 500mg PO twice a day PRN for pain. 5. Triamcinolone cream 6. Make sure to keep legs elevated and no extra walking Plan and coordination of the patient's care discussed in the presence of Gear Design Engineer and nurse. SCRIBED BY: GRAY MORFIN Laser Engineer scribed while in presence of service performed by Dr. Porras/Courtney Erickson APRN on 08/26/18 ([id number])
[2018-08-26] MEDS: ROCEPHIN 1 GM in SODIUM CHLORIDE 50 ML IV SCH (09:36)
--- NOTE | 2018-08-26 11:23 | CM.DICTOOL ---
ADMISSION: 08/23/18 12:52 DISCHARGE: 08/26/18 FINAL DIAGNOSIS CELLULITIS, RLE - ACUTE CHRONIC LEG EDEMA BRONCHITIS - ACUTE GOUT DIABETIC NEUROPATHY ANEMIA ATRIAL FIBRILLATION, ON COUMADIN H/O CVA (10 YRS AGO) NEUROPATHY GERD OSTEOARTHRITIS DEGENERATIVE DISC DISEASE CHRONIC BACK PAIN CATARACT EXTRACTION LAST VITALS Temp Pulse Resp BP Pulse Ox 97.6 F 73 16 124/73 99 08/26/18 05:47 08/26/18 05:47 08/26/18 05:47 08/26/18 05:47 08/26/18 05:47 TAKE THESE MEDICATIONS AT HOME Allopurinol (Zyloprim) 100 mg PO DAILY [facility] Last Admin: 08/25/18 09:01 Dose: 100 mg Digoxin (Lanoxin) 125 mcg PO DAILY [facility] Last Admin: 08/25/18 08:59 Dose: 125 mcg Furosemide (Lasix Tab) 40 mg PO QDAC [facility] Last Admin: 08/26/18 05:42 Dose: 40 mg Gabapentin (Neurontin) 100 mg PO Q6HR [facility] Last Admin: 08/26/18 06:41 Dose: 100 mg Lisinopril (Zestril) 20 mg PO DAILY [facility] Last Admin: 08/25/18 09:00 Dose: 20 mg Pantoprazole Sodium (Protonix) 40 mg PO BIDAC [facility] Last Admin: 08/26/18 05:42 Dose: 40 mg Potassium Chloride (Micro-K Cap) 10 meq PO DAILYWM [facility] Last Admin: 08/26/18 07:26 Dose: 10 meq Rosuvastatin Calcium (Crestor) 5 mg PO BEDTIME [facility] Last Admin: 08/25/18 21:22 Dose: 5 mg Sotalol HCl (Betapace) 80 mg PO BID [facility] Last Admin: 08/25/18 21:22 Dose: 80 mg Warfarin Sodium (Coumadin) 3 mg PO QPM [facility] Last Admin: 08/25/18 16:24 Dose: 3 mg GLIMEPIRIDE 2MG DAILY WITH MEALS PIOGLITAZONE HCL/METFORMIN HCL 15MG-850MG PO BID PRN ALLERGIES No Known Allergies Allergy (Unverified 08/23/18 10:55) Discontinued Medications Bisacodyl (Dulcolax) 10 mg RC ONCE STA Stop: 08/25/18 16:41 Last Admin: 08/25/18 17:07 Dose: Not Given Dexamethasone Sodium Phosphate (Decadron 4 Mg/Ml Sdv) 4 mg IM ONCE STA Stop: 08/23/18 15:01 Last Admin: 08/23/18 15:42 Dose: 4 mg Dexamethasone Sodium Phosphate (Decadron 4 Mg/Ml Sdv) 4 mg IM ONCE STA Stop: 08/24/18 09:41 Last Admin: 08/24/18 09:42 Dose: 4 mg Docusate Sodium (Colace) 100 mg PO DAILY [facility] Furosemide (Lasix) 20 mg IVP ONCE STA Stop: 08/23/18 13:40 Last Admin: 08/23/18 14:03 Dose: 20 mg Gabapentin (Neurontin) 100 mg PO Q6H [facility] Last Admin: 08/24/18 02:22 Dose: 100 mg Ceftriaxone Sodium 1 gm/ (Sodium Chloride) 50 mls @ 75 mls/hr IV ONCE STA Stop: 08/23/18 14:16 Last Admin: 08/23/18 14:04 Dose: 75 mls/hr Vancomycin HCl 1 gm/ Sodium (Chloride) 250 mls @ 250 mls/hr IV ONCE STA Stop: 08/23/18 14:38 Last Admin: 08/23/18 16:18 Dose: 250 mls/hr Sodium Chloride (Sodium Chloride) 1,000 mls @ 75 mls/hr IV .[id number] [facility] Last Admin: 08/24/18 07:40 Dose: 75 mls/hr Ketorolac Tromethamine (Toradol) 30 mg IVP Q8HR [facility] Last Admin: 08/25/18 05:40 Dose: 30 mg Magnesium Hydroxide (Milk Of Magnesia) 30 ml PO ONCE STA Stop: 08/25/18 08:39 Last Admin: 08/25/18 09:03 Dose: 30 ml Non-Formulary Medication (Rosuvastatin Calcium [Crestor]) 5 mg PO BEDTIME [facility] Last Admin: 08/23/18 22:41 Dose: Not Given Pantoprazole Sodium (Protonix) 40 mg PO QDAC [facility] Last Admin: 08/25/18 05:41 Dose: 40 mg NEW PRESCRIPTIONS: NEW MEDICATIONS: 1. OMNICEF 300MG TAKE 1 CAPSULE 2 TIMES A DAY FOR 7 DAYS. TAKE UNTIL ALL GONE. 2. TRAMADOL 50MG TAKE 1 TABLET 2 TIMES A DAY NEEDED FOR PAIN. 3. TRIAMCINOLONE 0.1% CREAM TO BILATERAL LOWER EXTREMITIES 2 TIMES A DAY NEEDED FOR ITCHING. SMOKING: N/A DISEASE SPECIFIC EDUCATION: CELLULITIS CONSTIPATION MEDICATIONS ACTIVITY IMPORTANCE OF TAKING MEDICATIONS PRESCRIBED KEEP LEGS ELEVATED MUCH POSSIBLE LAB REVIEW: 08/26/18 06:15 08/26/18 06:15 08/26/18 06:15: Sodium 134.5, Potassium 4.60, Chloride 102.6, Carbon Dioxide 26.3, Anion Gap 10.20, BUN 43.4 H, Creatinine 1.13, Estimated GFR (MDRD) 46.00, BUN/Creatinine Ratio 38.40, Glucose 112.0 H, Calcium 8.48, Total Bilirubin 0.25 , AST 18.3, ALT 15.1, Alkaline Phosphatase 43.3 L, Total Protein 6.52, Albumin 3.36 L, Globulin 3.16, Albumin/Globulin Ratio 1.06 08/26/18 06:15: PT 18.0 H, INR 1.83 08/26/18 06:15: WBC 14.29 H D, RBC 3.51 L, Hgb 9.1 L, Hct 29.3 L, MCV 83.5, MCH 25.9 L, MCHC 31.1 L, RDW Coeff of Corby 17.2 H, Plt Count 241, Immature Gran % ( Auto) 1.0, Neut % (Auto) 67.5, Lymph % (Auto) 24.6, [place] % (Auto) 6.3, Eos % ( Auto) 0.5, Baso % (Auto) 0.1, Immature Gran # (Auto) 0.2, Neut # (Auto) 9.6 H, Lymph # (Auto) 3.5 H, [place] # (Auto) 0.9, Eos # (Auto) 0.1, Baso # (Auto) 0.0 08/25/18 18:23: Stl Occult Blood (IFOB) Positive, Stool Occult Blood #2 No specimen received, Stool Occult Blood #3 No specimen received PLAN: DISCHARGE HOME TODAY. 08/26/18 CONTINUE HOME MEDICATIONS PER NURSING SHEET. TAKE YOUR LASIX PRESCRIBED. NEW MEDICATIONS: 1. OMNICEF 300MG TAKE 1 CAPSULE 2 TIMES A DAY FOR 7 DAYS. TAKE UNTIL ALL GONE. 2. TRAMADOL 50MG TAKE 1 TABLET 2 TIMES A DAY NEEDED FOR PAIN. 3. TRIAMCINOLONE 0.1% CREAM TO BILATERAL LOWER EXTREMITIES 2 TIMES A DAY NEEDED FOR ITCHING. DIET: 1800 CALORIE ADA DIET. NO ADDED SALT. ACTIVITY: KEEP LEGS ELEVATED MUCH POSSIBLE. NO EXTRA WALKING. FOLLOW UP WITH DR. PORRAS ON WednesdayAugust AT 930AM. IF UNABLE TO KEEP APPOINTMENT, PLEASE CALL TO RESCHEDULE. [phone]. PATIENT IS A FULL CODE. SITTING UP IN RECLINER WITH LEGS ELEVATED. ALERT AND ORIENTED X 4. Luz Maria MANNING APRN INTO SEE PATIENT. PATIENT STATES DOING BETTER AND WOULD LIKE TO GO HOME. PLAN OF CARE DISCUSSED PER Luz Maria MANNING APRN INCLUDING DISCHARGE, MEDICATIONS, ACTIVITY AND DIET. PATIENT VERBALIZES UNDERSTANDING AND AGREEMENT. PATIENT DID STATE SHE WAS NOT TAKING HER LASIX PRESCRIBED. Luz Maria MANNING APRN ENCOURAGED HER TO TAKE IT DR. PORRAS PRESCRIBED IT. PATIENT STATED OKAY, BUT I DON'T LIKE IT. APPETITE IS FAIR. VITAL SIGNS ARE STABLE. HAS BEEN AFEBRILE. POX 99% ON ROOM AIR. HEART TONES ARE IRREGULAR. TELEMETRY REVEALING A-FIB. NO C/O PAIN OR DISCOMFORT. LUNGS ARE CLEAR. NO COUGH OR DSYPNEA NOTED. ABDOMEN IS SOFT, NON- TENDER WITH BOWEL SOUNDS POSITIVE IN ALL 4 QUADS. C/O CONSTIPATION FREQUENTLY. STATES CAUSES HER HEMORROIDS TO BLEED. STATES SHE FEELS THIS IS WHY HER STOOL WAS POSITIVE FOR BLOOD. PEDAL PULSES POSITIVE WITH 2+ EDEMA TO BILATERAL LOWER EXTREMITIES. RIGHT FOOT MORE SWOLLEN THAN LEFT. REDNESS TO LEFT LEG HAS IMPROVED. STATES SHE DEVELOPED SOME PALE REDNESS TO LEFT LOWER LEG YESTERDAY. IS INDEPENDENT WITH ACTIVITY OF DAILY LIVING. DR. JULIO PORRAS MD Luz Maria MANNING APRN
[2018-08-26] MEDS: HUMULIN R SUBCUT PRN (12:05)
--- NOTE | 2018-08-26 12:41 | US ---
EXAM: ULTRASOUND CAROTID DUPLEX, BILATERAL HISTORY: Atrial fibrillation, history of stroke FINDINGS: Lechuga-scale ultrasound, color Doppler and spectral analysis was performed. Velocities are in meters per second. By lechuga scale and color Doppler imaging, there were regions of heterogeneous plaque formation identi fied within the carotid bulbs and internal carotid arteries. These regions of plaque appeared to rem ain less than 50% vessel diameter. RIGHT: External carotid artery peak systolic velocity: 1.6 Common carotid artery peak systolic velocity/end diastolic velocity: 0.6/0.2 Internal carotid artery peak systolic velocity: 1.4 ICA/CCA peak systolic velocity ratio: 2.2 ICA end diastolic velocity: 0.3 LEFT: External carotid artery peak systolic velocity: 0.6 Common carotid artery peak systolic velocity/end diastolic velocity: 0.6/0.2 Internal carotid artery peak systolic velocity: 1.0 ICA/CCA peak systolic velocity ratio: 1.5 ICA end diastolic velocity: 0.3 The right and left vertebral arteries were antegrade. IMPRESSION: 1. By lechuga scale and color Doppler imaging, there were regions of heterogeneous plaque formation gerald ntified within the carotid bulbs and internal carotid arteries. These regions of plaque appeared to remain less than 50% vessel diameter. 2. The right internal carotid artery peak systolic velocity of 1.4 meters per second falls within th e moderate range of stenosis. Moderate indicates 50 - 69% vessel diameter. The ICA/CCA peak systoli c velocity ratio on this side of 2.2 correlates with this. 3. No sonographic evidence of hemodynamically significant stenosis on the left. 4. Both vertebral arteries were antegrade.
--- NOTE | 2018-08-26 14:40 | PN ---
DATE OF SERVICE: 08/25/18 SUBJECTIVE: The patient is feeling a lot better, seen and examined with nurse practitioner. Her bronchitis seems to be better. The fluid retention with less pedal edema. Atrial fibrillation seems to be under control. Cellulitis seems to be resolving. CONDITION: Stable. TIME SPENT: More than 30 minutes. Plan and coordination of the patient's care discussed in the presence of nurse. ANJANA
--- NOTE | 2018-08-26 14:44 | PN ---
DATE OF SERVICE: 08/26/18 SUBJECTIVE: The patient was seen and examined today with the nurse practitioner. The patient 's condition is stable. Cellulitis has practically resolved. Leg edema is much less. Face has resolved. The daughter is in the room. The patient is strongly advised to take her medications. She was not taking her Lasix because she has to go to the bathroom. She was explained about it and advised to elevate the legs, cut down on salt intake, keep the legs higher than the hips even at night. CONDITION: Stable. TIME SPENT: More than 30 minutes. Plan and coordination of the patient's care discussed in the presence of nurse. ANJANA
--- NOTE | 2018-08-26 14:46 | PN ---
CODING FOR BILLIN08/23/18 ADMITTING DAY - LEVEL 5 08/24/18 INTERMEDIATE 08/25/18 INTERMEDIATE 08/26/18 DISCHARGE ANJANA
[2018-08-26 15:08] VITALS: BP 126/89; TEMP 97.8
--- NOTE | 2018-08-29 09:52 | ECHO2D ---
Date of Exam: 08/26/18 Ordering Physician: DR. JULIO PORRAS Room #: 122 Reason for Echo: ATRIAL FIBRILLATION, LEG EDEMA, SHORTNESS OF AIR M-Mode Normal Adult Results LV Dimensions Normal Adult Results AoV Opening excursions >1.6 >1.6 LVEDD-base- 3.5-5.8 5.4 Ao root dimensions 2.0-3.7 2.3 LVESD-base- 3.1-4.6 L. Atrium dimensions 1.9-3.8 6.5 Post. Wall thickness 0.8-1.1 1.1 IV septum (thickness) 0.7-1.2 1.2 Post. Wall excursion 0.72-1.3 NORMAL Septal motion NORMAL Systolic motion R. Ventricular cavity 1.5-2.0 NORMAL LVEF 60% 49% Paradoxical septal wall motion NORMAL 2-D : CALCIFIC MITRAL VALVE ANNULUS, NORMAL LEFT VENTRICULAR CONTRACTILITY--NO EFFUSION, NO THROMBUS, MARKEDLY ENLARGED LEFT ATRIAL CAVITY, NORMAL LEFT VENTRICLE SIZE M-MODE: MV: CALCIFIC ANNULUS AV: NORMAL TV: NORMAL PV: CHAMBER SIZE: ENLARGED LEFT ATRIAL CAVITY WALL MOTION: NORMAL PERICARDIUM: NORMAL INTERPRETATION: 1. MARKEDLY ENLARGED LEFT ATRIAL CAVITY 2. BORDERLINE LEFT VENTRICULAR HYPERTROPHY 3. NORMAL LEFT VENTRICLE CONTRACTILITY 4. CALCIFIC MITRAL VALVE ANNULUS MTDD
--- NOTE | 2018-09-01 13:04 | PN ---
DATE OF SERVICE: 08/26/18 REASON FOR ECHOCARDIOGRAM: The patient is short of breath with leg edema which was +1 to +2 pitting along with atrial fibrillation. The patient needed evaluation of LV function, valvular structures, LA cavity, et cetera. TIME SPENT: More than 30 minutes. Plan and coordination of the patient's care discussed in the presence of nurse. ANJANA
--- NOTE | 2018-09-06 10:00 | HP ---
DATE OF SERVICE: 08/23/18 REASON FOR HOSPITALIZATION/HISTORY OF PRESENT ILLNESS: 82 year old white female who presents to the emergency room with back pain and redness and swelling pain of her right lower extremity. The patient stated that she has lifted a heavy object, hit it on her leg and then started with the back pain in the right leg redness. She has chronic leg edema. PAST MEDICAL HISTORY: Diabetes Mellitus type 2 Dyslipidemia Hypertension History of atrial fibrillation on Coumadin History of CVA Chronic back pain Chronic leg edema Recurrent Gout Hypertension GERD History of hypokalemia Dyslipidemia PAST SURGICAL HISTORY: Bilateral cataract extraction REVIEW OF SYSTEMS: CONSTITUTIONAL: No night sweats. Fatigue. No fever or chills. HEENT: Eyes: No visual changes. No eye pain. No eye discharge. ENT: No runny nose. No epistaxis. No sinus pain. No sore throat. No odynophagia. No ear pain. No congestion. RESPIRATORY: No cough, no congestion. No hemoptysis. No shortness of breath. CARDIOVASCULAR: No angina symptoms. No CHF symptoms. No atypical chest pain for CAD. No palpitations. No PND. No orthopnea. GASTROINTESTINAL: No abdominal pain. No nausea or vomiting. No diarrhea or constipation. No hematemesis. No hematochezia. GENITOURINARY: No urgency. No frequency. No dysuria. No hematuria. No obstructive symptoms. No discharge. No pain. No significant abnormal bleeding. MUSCULOSKELETAL: No musculoskeletal pain. No joint swelling. No arthritis. Weakness. Back pain Right lower extremity pain. NEUROLOGICAL: No headache. No neck pain. No syncope. No seizures. No dizziness. PSYCHIATRIC: Not anxious. No depression. No suicidal thoughts. No homicidal thoughts. SKIN: No rash. No lesions. No wounds. ENDOCRINE: No unexplained weight loss. No weight gain. HEMATOLOGIC/LYMPHATIC: No anemia. No purpura. No petechiae. No prolonged or excessive bleeding. No palpable lymph nodes. PERSONAL/FAMILY/SOCIAL HISTORY: The patient is recently , nonsmoker. No alcohol or illicit drug use. MEDICATIONS: Neurontin 100mg PO Q 6 hours Digoxin 125mcg PO daily Crestor 5mg PO bedtime Micro-K cap 10meq PO daily Protonix 40mg PO QDAC Amaryl 2mg PO daily Lasix 40mg PO QDAC Zyloprim 100mg PO daily Actoplus Met 15mg-850mg one each PO twice a day PRN Betapace 80mg PO twice a day Hair,skin and nails softgel one each PO daily Coumadin 3mg PO QPM Zestril 20mg PO daily ALLERGIES: No known allergies. PHYSICAL EXAMINATION: GENERAL: The patient is alert and oriented. No acute distress. VITAL SIGNS: Temperature 100.1, pulse 108, respiratory rate 20, blood pressure 99/63 and pulse ox 92%. HEENT: Head normocephalic, atraumatic. Eyes: Extraocular muscles are intact. Pupils are equal, round and reactive to light and accommodation. Ears: No lesions. Nose appeared normal. Throat: No exudate or erythema. NECK: Supple. No JVD, no carotid bruit. No lymphadenopathy or thyromegaly. LUNGS: Diminished breath sounds bilaterally. Productive cough.Clear to auscultation. Percussion note normal. Chest symmetrical. HEART: S1, S2, no S3. No murmurs. No cyanosis or clubbing. No ascites. Pulses: Dorsalis pedis and posterior tibial pulses +1 to +2 bilaterally. ABDOMEN: Soft. Nontender. Bowel sounds active. No CVA tenderness. No mass felt. EXTREMITIES: +1 bilateral leg edema on the right lower extremity. She has on the anterior aspect surrounding erythema from knee to the valentine which is tender and warm. Full range of motion of all extremities, equal. NEUROLOGIC: No focal deficit. Cranial nerves II through XII are grossly intact. No headache, no double vision or headache. SKIN: Not dry. Intact. Turgor - normal. LYMPHATIC: No palpable lymph nodes/no lymphedema. MUSCULOSKELETAL: Normal joints with no swelling. Muscle tone is normal. LABS: Chest x-ray and CT of the chest reveals normal. CT of the abdomen shows no acute process, gallstones. She is asymptomatic, small hiatal hernia, degenerative disease of the spine. CT of the T spine shows no acute compression fracture, unchanged multilevel degenerative disease. CT of the L spine shows severe degenerative disease L4-L5. No fracture. WBC 16, hgb 10.7, hct 34.9, plt count 264, sodium 134, potassium 4.2, BUN 21, creatinine 0.79. ASSESSMENT: 1. Cellulitis of the right lower extremity 2. Back pain 3. Atrial fibrillation on Coumadin 4. History of CVA 5. Hypertension 6. Degenerative disc disease of the spine PLAN: 1. We will admit 2. Routine telemetry orders 3. CBC and CMP daily 4. INR daily 5. Digoxin Level 6. Continue all home medications 7. Start on Rocephin 1 gram IV daily 8. Decadron 1cc IM one time 9. U/A with culture and sensitivity if necessary 10.Blood cultures times two 11.Low sodium/Diabetic diet 12.Sliding scale for insulin Will follow closely. TIME SPENT: More than 70 minutes. MTDD
--- NOTE | 2018-09-06 10:14 | DS ---
DATE OF SERVICE: 08/26/18 FINAL DIAGNOSIS: 1. Cellulitis, right lower extremity-acute 2. Chronic leg edema 3. Bronchitis-acute 4. GOUT 5. Diabetic Neuropathy 6. Anemia 7. Atrial fibrillation, on Coumadin 8. History of CVA(10 years ago) 9. Neuropathy 10.GERD 11.Osteoarthritis 12.Degenerative disc disease 13.Chronic back pain 14. Cataract extraction LAST VITALS: Temperature 97.6, pulse 73, respiratory rate 16, blood pressure 124/73 and pulse ox 99%. DISCHARGE INSTRUCTIONS: Discharge home today 08/26/18. Continue home medications per nursing sheet. Take Lasix as prescribed. Followup with Dr. Fox on September 01 at 0930am. Patient is a full code. MEDICATIONS AT DISCHARGE: MEDICATIONS: Neurontin 100mg PO Q 6 hours Digoxin 125mcg PO daily Lasix 40mg PO QDAC Zyloprim 100mg PO daily Zestril 20mg PO daily Protonix 40m,g PO twice a day Micro-K Capsule 10mew PO daily Crestor 5mg PO bedtime Betapace 80mg Po twice a day Coumadin 3mg PO QPM Glimepiride 2mg daily with meals Pioglitazone HCL/Metformin HCL 15mg-850mg PO twice a day PRN ALLERGIES: No known allergies. DISCONTINUED MEDICATIONS: Dulcolax 10mg RC once stat Decadron 4mg/ML sdv 4mg IM once stat Decadron 4mg/ml sdv 4mg IM once stat Colace 100mg PO daily Lasix 20mg IVP once stat Neurontin 100mg PO Q 6 hours Sodium Chloride 50mls at 75mls/hr IV once stat Chloride 250mls at 250mls/hr IV once stat Sodium chloride 1,000mls at 75mls/hr IV Q 13 hours Toradol 30mg IVP Q 8 hours Crestor 5mg PO bedtime Protonix 40mg PO QDAC NEW PRESCRIPTIONS: Omnicef 300mg take one capsule two times a day for 7 days. Take until all gone. Tramadol 50mg take one tablet two times a day as needed for pain Triamcinolone 0.1% cream to bilateral lower extremities two times a day as needed for itching DIET INSTRUCTIONS: 1800 calories ADA diet. No added salt ACTIVITY: Keep legs elevated as much as possible. No extra walking. SMOKING: N/A DISEASE SPECIFIC EDUCATION: Cellulitis Constipation Medications Activity Importance of taking medications as prescribed Keep legs elevated as much as possible. HOSPITAL COURSE: This is an 82 year old white female who presented to the emergency room with pain in her back, redness and swelling or her right lower extremity. She was admitted for cellulitis of the right lower extremity and leg edema. She has a history of atrial fibrillation and CVA. CT of the chest was normal and CT of the L spine showed severe degenerative disc disease. Venous scan bilaterally was normal showing no occlusion. She was admitted and placed on Rocephin 1 gram IV daily, continued on her Lasix 40mg PO daily which she is supposed to take at home but is noncompliant with because the patient reports that it make her use the bathroom. She is placed on Toradol 30mg IV Q 8 hours for pain control. This did relief her pain. There was no acute fracture associated with her back pain just thought to be do to inflammation. The patient reports that she had lifted up a large box and hit her leg with it which then became red and swollen and tender. Over the course of several days with IV antibiotics, keeping her legs elevated the patient's cellulitis has significantly improved. She did have IV fluids initially and Hgb dropped to 8.5 likely from hemodilution. It is up to 9.1 today on it's own after fluids were stopped. She did have some bronchitis type symptoms but chest x-ray showed no pneumonia. This is improved as well. She was given 1cc of Decadron. She will sent home with Omnicef 300mg twice a day for the next 7 days along with Prednisone 10mg PO twice a day. We will followup with her in the office. She is instructed to take her Lasix as prescribed at home. I also gave her 2.5mg of Zaroxolyn today before she went home to help with her leg edema. She is instructed to keep her legs elevated, take her Lasix and rest and we will followup with her next week. TIME SPENT: More than 60 minutes. ANJANA
== END 2018-08-26 15:25 | disposition home or self-care (01) | DRG 603 ==
LOC: ED 10:44 → MEDSURG B 12:52
PROVIDERS: ADMIT Internal Medicine; ATTEND Internal Medicine
DX: L03.115 Cellulitis of right lower limb (principal); M79.661 Pain in right lower leg; M10.9 Gout, unspecified; M19.90 Unspecified osteoarthritis, unspecified site; J20.9 Acute bronchitis, unspecified; E13.40 Other specified diabetes mellitus with diabetic neuropathy, unspecified; D64.9 Anemia, unspecified; K21.9 Gastro-esophageal reflux disease without esophagitis; I48.91 Unspecified atrial fibrillation; I10 Essential (primary) hypertension; R53.1 Weakness; R60.0 Localized edema; R21 Rash and other nonspecific skin eruption; Z79.01 Long term (current) use of anticoagulants; Z86.73 Personal history of transient ischemic attack (TIA), and cerebral infarction without residual deficits
CPT/HCPCS: 36415; 74176; 80053; 80162; 81001; 82272; 82550; 82803; 82962; 83605; 83880; 84145; 84484; 85025; 85610; 85730; 87040; 93005; 93010; 96374; 99223; 99232; 99239; 99284

== ENCOUNTER 2020-03-30 11:34 | Inpatient (IN) ==
[2020-03-30 11:39] VITALS: BMI 28.8
[2020-03-30] MEDS ORDERED: PROTONIX IV IVP STA (12:11)
[2020-03-30] MEDS ORDERED: ZOFRAN 4 MG/2 ML IVP STA (12:11)
[2020-03-30 12:25] LABS: BASOPHILS % (AUTO) 0.2 % (0.0-3.0); EOSINOPHILS % (AUTO) 0.1 % (0.0-7.0); HEMATOCRIT 33.7 % (37.0-47.0); HEMOGLOBIN 10.5 g/dl (12.0-16.0); IMMATURE GRANULOCYTE % (AUTO) 0.4 % (0.0-5.0); LYMPHOCYTES # (AUTO) 4.4 K/uL (0.60-3.4); LYMPHOCYTES % (AUTO) 39.5 (10.0-50.0); MEAN CORPUSCULAR HEMOGLOBIN 25.4 pg (27.0-31.0); MEAN CORPUSCULAR HGB CONC 31.2 (31.8-35.4); MEAN CORPUSCULAR VOLUME 81.4 fl (81.0-99.0); MONOCYTES # (AUTO) 0.8 K/uL (0.4-2.0); MONOCYTES % (AUTO) 7.1 (0-10); NEUTROPHILS # (AUTO) 5.9 K/ul (2.0-6.9); NEUTROPHILS % (AUTO) 52.7 % (42.2-75.2); PLATELET COUNT 266 10^3/uL (140-440); RDW COEFFICIENT OF VARIATION 19.1 % (11.6-14.8); RED BLOOD COUNT 4.14 10^6/ul (4.20-5.40); WHITE BLOOD COUNT 11.15 K/ul (4.6-10.2)
[2020-03-30 12:38] LABS: ALANINE AMINOTRANSFERASE 14.4 U/L (0-35); ALBUMIN 3.64 g/dL (3.5-5.0); ALKALINE PHOSPHATASE 49.9 U/L (53-141); AMYLASE 38.9 U/L (30-110); BILIRUBIN,TOTAL 0.68 mg/dL (0.2-1.3); BLOOD UREA NITROGEN 32.5 mg/dL (7-17); CALCIUM 9.24 mg/dL (8.4-10.2); CARBON DIOXIDE 26.4 mmol/L (22-30.0); CHLORIDE 94.5 mmol/L (98-107); CREATININE 1.32 mg/dL (0.60-1.30); GLUCOSE 105.6 mg/dL (74-106); LIPASE 44.7 U/L (23-300); MAGNESIUM 1.15 mg/dL (1.6-2.3); POTASSIUM 4.22 mmol/L (3.5-5.1); SODIUM 128.9 mmol/L (134.5-145); TOTAL PROTEIN 6.89 g/dL (6.3-8.2)
[2020-03-30] MEDS ORDERED: SODIUM CHLORIDE 1,000 ML IV STA (12:44)
[2020-03-30 12:49] LABS: TROPONIN I 0.018 ng/ml (0.0000-0.120)
[2020-03-30] MEDS ORDERED: NYSTATIN ORAL SUSP PO STA (12:50)
--- NOTE | 2020-03-30 13:08 | ED.PDOC ---
General ED Provider: Dr. URVASHI SANDERSON Chief Complaint: Nausea/Vomiting Stated Complaint: Nausea and vomiting Onset several days ago after eating at [employer] and eating hamburger that did not digest well and believe caused her problem. Treated and released from ER yesterday. Became ill again last evening and has been nauseated and dry heaving all morning Time Seen by Physician: 11:50 Mode of Arrival: Wheelchair Information Source: Patient Primary Care Provider: JULIO FOX Nursing and Triage Documentation Reviewed and Agree: Yes Does patient meet sepsis criteria?: No System Inflammatory Response Syndrome: Not Applicable Sepsis Protocol: For patient's 13 years and over: Temp is 96.8 and below OR 101 and greater Pulse >90 BPM Resp >20/minute Acutely Altered Mental Status Are patient's symptoms suggestive of a new infection, such as: -Pneumonia -Skin, Soft Tissue -Endocarditis -UTI -Bone, Joint Infection -Implantable Device -Acute Abdominal Infection -Wound Infection -Meningitis -Blood Stream Catheter Infection -Unknown GI Complaint Exam Vomiting/Diarrhea Complaint/Exam Onset/Duration: 3 days Symptoms Are: Still present Episodes of Vomiting over last 24 Hours: 0 Episodes of Diarrhea Over Last 24 Hours: 2 Initial Severity: Moderate Current Severity: Mild Character of Vomiting: Reports Retching Character of Diarrhea: Reports Watery Aggravating: Reports Liquids Alleviating: Reports Clear liquids Associated Signs and Symptoms: Reports Cramping Related History: Reports Similar episode Differential Diagnoses: Dehydration, Gastritis, Viral Gastroenteritis and Bacterial Gastroenteritis Review of Systems Review Of Systems Constitutional: Reports Loss of appetite All Other Systems: Reviewed and Negative [facility] Medical History (Updated 03/30/20 @ 14:40 by LUIS ARMANDO CAMACHO RN) Arrhythmia Asthma CVA (cerebral vascular accident) Diabetes Hypertension Family History (Updated 03/30/20 @ 14:40 by LUIS ARMANDO CAMACHO RN) FATHER Colon cancer Mother Stroke Social History Smoking and tobacco status: Never smoker Female Reproductive History Menstrual Hx Hysterectomy: No Hx Tubal Ligation: No Physical Exam Physical Exam Appearance: Reports Ill-appearing and Obese Ill-appearing: Mild Pain Distress: None Eyes: Reports FRANK, EOMI and Conjunctiva clear ENT: Reports Ears normal, Nose normal, Oropharynx normal and Other (Tonuge coated with white exudate/film -note on bucccal mucosw ) Neck: Supple Respiratory: Reports Airway patent, Breath sounds clear and Breath sounds equal Cardiovascular: Reports RRR, Pulses normal, No rub and No murmur GI/: Reports Soft, Tender and Bowel sounds hypoactive Musculoskeletal: Reports Normal strength, ROM intact and No edema Skin: Reports Warm, Dry and Normal color Neurological: Reports Sensation intact, Motor intact, Reflexes intact and Unre sponsive Psychiatric: Reports Anxious and Other (affect flat) Physician Notification Case Discussed Physician Notified: Dr Fox-admit to hospital inpatient Time of Notification: 12:45 Critical Care Note Critical Care Note Total Time (mins): 0 Course Course Hematology/Chemistry: 03/30/20 12:20 03/30/20 12:20 Orders, Labs, Meds: Lab Review 03/30/20 03/30/20 03/30/20 12:20 12:20 13:24 WBC 11.15 H RBC 4.14 L Hgb 10.5 L Hct 33.7 L MCV 81.4 MCH 25.4 L MCHC 31.2 L RDW Coeff of Corby 19.1 H Plt Count 266 Immature Gran % (Auto) 0.4 Neut % (Auto) 52.7 Lymph % (Auto) 39.5 Garza % (Auto) 7.1 Eos % (Auto) 0.1 Baso % (Auto) 0.2 Neut # (Auto) 5.9 Lymph # (Auto) 4.4 H Garza # (Auto) 0.8 Eos # (Auto) 0.0 Baso # (Auto) 0.0 Immature Gran # (Auto) 0.0 Sodium 128.9 L Potassium 4.22 Chloride 94.5 L Carbon Dioxide 26.4 Anion Gap 12.22 BUN 32.5 H Creatinine 1.32 H Estimated GFR (MDRD) 38.00 BUN/Creatinine Ratio 24.62 Glucose 105.6 Calcium 9.24 Magnesium 1.15 L Total Bilirubin 0.68 AST 32.0 ALT 14.4 Alkaline Phosphatase 49.9 L Troponin I 0.018 Total Protein 6.89 Albumin 3.64 Globulin 3.25 Albumin/Globulin Ratio 1.12 Amylase 38.9 Lipase 44.7 Urine Color Yellow Urine Clarity Clear Urine pH 5.0 Ur Specific Isabella 1.020 Urine Protein Negative Urine Glucose (UA) Negative Urine Ketones Negative Urine Blood 1+ H Urine Nitrite Negative Urine Bilirubin Negative Urine Urobilinogen 0.2 Ur Leukocyte Esterase Negative Urine Microscopic RBC 5-10 Urine Microscopic WBC 2-5 Ur Squamous Epith Cells 10-20 Urine Bacteria 1+ Orders Category Date Time Status EKG-(ED ONLY) Stat CARDIO 03/30/20 12:08 Completed IV [ED IV/MEDIPORT/POWERPORT] .ONCE EMERGENCY 03/30/20 12:11 Active AMYLASE Stat LAB 03/30/20 12:20 Completed CBC W/ AUTO DIFF Stat LAB 03/30/20 12:20 Completed CMP [COMPREHENSIVE METABOLIC PANEL] Stat LAB 03/30/20 12:20 Completed LIPASE Stat LAB 03/30/20 12:20 Completed MAGNESIUM Stat LAB 03/30/20 12:20 Completed TROPONIN I Stat LAB 03/30/20 12:20 Completed UA [URINALYSIS C & S IF INDICATED] Stat LAB 03/30/20 13:24 Completed URINE CULTURE Stat LAB 03/30/20 13:24 Received 0.9 % Sodium Chloride [Saline Flush] MEDS 03/30/20 12:11 Active 1 syr IVF PRN PRN Nystatin [Nystatin Oral Susp] MEDS 03/30/20 12:50 Discontinued 5 ml PO ONCE STA Ondansetron HCl/Pf [Zofran 4 mg/2 ml] MEDS 03/30/20 12:11 Discontinued 4 mg IVP ONCE STA Pantoprazole Sodium [Protonix IV] MEDS 03/30/20 12:11 Discontinued 40 mg IVP ONCE STA Sodium Chloride 0.9% [Sodium Chloride] 1,000 ml MEDS 03/30/20 12:44 Discontinued IV BOLUS Medications Generic Name Dose Route Start Last Admin Trade Name Freq PRN Reason Stop Dose Admin Allopurinol 100 mg 03/31/20 09:00 Zyloprim PO DAILY MIKE Alprazolam 0.5 mg 03/30/20 21:00 Xanax PO BEDTIME MIKE Digoxin 125 mcg 03/31/20 09:00 Lanoxin PO DAILY MIKE Gabapentin 100 mg 03/30/20 15:00 03/30/20 14:57 Neurontin PO Not Given Q6H MIKE Lisinopril 20 mg 03/31/20 09:00 Zestril PO DAILY MIKE Non-Formulary Medication 1 each 03/30/20 21:00 Pioglitazone-Metformin [Actoplus Met] PO BID MIKE Non-Formulary Medication 5 mg 03/30/20 21:00 Rosuvastatin [Crestor] PO BEDTIME MIKE Non-Formulary Medication 1 each 03/31/20 09:00 Vit A-Vit H-Zcbvnb-Lung-Copper [Ilyq-Fupj-Sxil(Vit A,C-Biotin)] PO DAILY MIKE Nystatin 5 ml 03/30/20 17:00 03/30/20 17:05 Nystatin Oral Susp PO 5 ml ACHS MIKE Administration Ondansetron HCl 4 mg 03/30/20 13:33 Zofran Tab PO Q8H PRN Nausea / Vomiting Pantoprazole Sodium 40 mg 03/31/20 06:30 Protonix PO QDAC MIKE Potassium Chloride 10 meq 03/31/20 09:00 Micro-K Cap PO DAILY MIKE Sodium Chloride 1 syr 03/30/20 12:11 03/30/20 13:16 Saline Flush IVF 1 syr PRN PRN Administration To flush IV Sotalol HCl 80 mg 03/30/20 21:00 Betapace PO BID MIKE Warfarin Sodium 3 mg 03/30/20 17:00 03/30/20 17:05 Coumadin PO 3 mg QPM MIKE Administration Discontinued Medications Generic Name Dose Route Start Last Admin Trade Name Freq PRN Reason Stop Dose Admin Sodium Chloride 1,000 mls @ 1,000 mls/hr 03/30/20 12:44 03/30/20 13:16 Sodium Chloride IV 03/30/20 13:43 1,000 mls/hr BOLUS STA Administration Nystatin 5 ml 03/30/20 12:50 03/30/20 13:15 Nystatin Oral Susp PO 03/30/20 12:51 5 ml ONCE STA Administration Ondansetron HCl 4 mg 03/30/20 12:11 03/30/20 12:40 Zofran 4 Mg/2 Ml IVP 03/30/20 12:12 4 mg ONCE STA Administration Pantoprazole Sodium 40 mg 03/30/20 12:11 03/30/20 12:41 Protonix Iv IVP 03/30/20 12:12 40 mg ONCE STA Administration Vital Signs: Temp Pulse Resp BP Pulse Ox 03/30/20 11:35 97.6 F 96 H 20 173/76 H 97 Discharge Plan Discharge Patient Disposition: ADMITTED INPATIENT Discharge Problem: Gastroenteritis, Dehydration with hyponatremia, Atrial fibrillation ED Provider: URVASHI SANDERSON Condition: Fair Discharge Date/Time: 03/30/20 13:57 Additional Comments Additional Comments: recommended additional testing -CT abdomend=pelvisPt refused
[2020-03-30 13:28] LABS: BILIRUBIN,URINE Negative (NEGATIVE); CLARITY,URINE Clear (CLEAR); COLOR,URINE Yellow (YELLOW); GLUCOSE, URINE (UA) Negative (NEGATIVE); KETONES,URINE Negative (NEGATIVE); LEUKOCYTE ESTERASE ,URINE Negative (NEGATIVE); NITRITE,URINE Negative (NEGATIVE); PROTEIN,URINE Negative (NEGATIVE); URINE, BLOOD 1+ (NEGATIVE); UROBILINOGEN,URINE 0.2 (0.2)
[2020-03-30] MEDS ORDERED: ZOFRAN TAB PO PRN (13:33)
[2020-03-30 13:34] LABS: BACTERIA,URINE 1+ (NOT PRESENT)
[2020-03-30] MEDS: NEURONTIN PO SCH ×2 (14:57→20:23)
[2020-03-30] MEDS ORDERED: COUMADIN PO SCH (17:00)
[2020-03-30] MEDS: NYSTATIN ORAL SUSP PO SCH ×2 (17:05→20:24)
[2020-03-30] MEDS ORDERED: ZESTRIL PO STA (20:17)
[2020-03-30] MEDS ORDERED: CATAPRES PO PRN (20:18)
[2020-03-30] MEDS ORDERED: VASOTEC IV IVP PRN (20:19)
[2020-03-30] MEDS: BETAPACE PO SCH (20:24)
[2020-03-30] MEDS: XANAX PO SCH (20:24)
[2020-03-30] MEDS: SODIUM CHLORIDE 1,000 ML IV SCH (20:32)
[2020-03-30] MEDS ORDERED: METFORMIN PO SCH (21:00)
[2020-03-30] MEDS ORDERED: PIOGLITAZONE PO SCH (21:00)
[2020-03-31 04:34] LABS: BASOPHILS % (AUTO) 0.3 % (0.0-3.0); EOSINOPHILS % (AUTO) 0.4 % (0.0-7.0); HEMATOCRIT 34.4 % (37.0-47.0); HEMOGLOBIN 10.6 g/dl (12.0-16.0); IMMATURE GRANULOCYTE % (AUTO) 0.3 % (0.0-5.0); LYMPHOCYTES # (AUTO) 4.6 K/uL (0.60-3.4); MEAN CORPUSCULAR HEMOGLOBIN 25.1 pg (27.0-31.0); MEAN CORPUSCULAR HGB CONC 30.8 (31.8-35.4); MEAN CORPUSCULAR VOLUME 81.5 fl (81.0-99.0); MONOCYTES % (AUTO) 9.7 (0-10); NEUTROPHILS # (AUTO) 4.7 K/ul (2.0-6.9); NEUTROPHILS % (AUTO) 45.3 % (42.2-75.2); PLATELET COUNT 236 10^3/uL (140-440); RDW COEFFICIENT OF VARIATION 19.3 % (11.6-14.8); RED BLOOD COUNT 4.22 10^6/ul (4.20-5.40); WHITE BLOOD COUNT 10.42 K/ul (4.6-10.2)
[2020-03-31] MEDS: NEURONTIN PO SCH ×4 (04:34→20:47)
[2020-03-31 04:48] LABS: ALANINE AMINOTRANSFERASE 13.4 U/L (0-35); ALBUMIN 3.52 g/dL (3.5-5.0); ALKALINE PHOSPHATASE 48.8 U/L (53-141); ASPARTATE AMINO TRANSFERASE 25.3 U/L (14-36); BILIRUBIN,TOTAL 0.6 mg/dL (0.2-1.3); BLOOD UREA NITROGEN 22.5 mg/dL (7-17); CALCIUM 9.34 mg/dL (8.4-10.2); CARBON DIOXIDE 26.8 mmol/L (22-30.0); CHLORIDE 97.5 mmol/L (98-107); CREATININE 1.1 mg/dL (0.60-1.30); GLUCOSE 101.6 mg/dL (74-106); POTASSIUM 4.1 mmol/L (3.5-5.1); SODIUM 131.9 mmol/L (134.5-145); TOTAL PROTEIN 6.74 g/dL (6.3-8.2)
[2020-03-31 04:59] LABS: PROTHROMBIN TIME 46.4 SEC (9.3-11.0)
[2020-03-31] MEDS: PROTONIX PO SCH (05:44)
[2020-03-31] MEDS: NYSTATIN ORAL SUSP PO SCH ×4 (05:44→20:47)
[2020-03-31] MEDS ORDERED: FERROUS SULFATE DRIED SCH (09:15)
[2020-03-31] MEDS: GLUCOPHAGE PO SCH ×2 (09:16→17:43)
[2020-03-31] MEDS: BETAPACE PO SCH ×2 (09:16→20:37)
[2020-03-31] MEDS: ACTOS PO SCH ×2 (09:17→17:43)
[2020-03-31] MEDS: ZESTRIL PO SCH (09:17)
[2020-03-31] MEDS: LANOXIN PO SCH (09:18)
[2020-03-31] MEDS: ZYLOPRIM PO SCH (09:18)
[2020-03-31] MEDS: MICRO-K CAP PO SCH (09:19)
[2020-03-31] MEDS: FERROUS SULFATE PO SCH (10:37)
[2020-03-31] MEDS: NON-FORMULARY MEDICATION (Rosuvastatin [Crestor] 5 MG) PO SCH ×2 (10:39→20:48)
[2020-03-31] MEDS: CATAPRES PO SCH ×2 (14:02→20:37)
[2020-03-31] MEDS: SODIUM CHLORIDE 1,000 ML IV SCH (17:29)
[2020-03-31] MEDS: XANAX PO SCH (20:47)
[2020-04-01] MEDS: NEURONTIN PO SCH ×2 (02:38→10:04)
[2020-04-01 04:49] LABS: HEMATOCRIT 31.7 % (37.0-47.0); HEMOGLOBIN 9.5 g/dl (12.0-16.0); MEAN CORPUSCULAR VOLUME 83.4 fl (81.0-99.0); PLATELET COUNT 226 10^3/uL (140-440); RDW COEFFICIENT OF VARIATION 19.3 % (11.6-14.8); WHITE BLOOD COUNT 9.82 K/ul (4.6-10.2)
[2020-04-01 05:04] LABS: ALBUMIN 3.11 g/dL (3.5-5.0); ASPARTATE AMINO TRANSFERASE 30.1 U/L (14-36); BILIRUBIN,TOTAL 0.36 mg/dL (0.2-1.3); BLOOD UREA NITROGEN 23.1 mg/dL (7-17); CALCIUM 8.52 mg/dL (8.4-10.2); CARBON DIOXIDE 26.8 mmol/L (22-30.0); CHLORIDE 97.8 mmol/L (98-107); CREATININE 1.13 mg/dL (0.60-1.30); GLUCOSE 107.7 mg/dL (74-106); POTASSIUM 3.79 mmol/L (3.5-5.1); TOTAL PROTEIN 6.08 g/dL (6.3-8.2)
[2020-04-01 05:11] LABS: ANISOCYTOSIS NOT PRESENT (NOT PRESENT)
[2020-04-01 05:23] LABS: PROTHROMBIN TIME 49.7 SEC (9.3-11.0)
[2020-04-01 05:57] VITALS: TEMP 97.5
[2020-04-01] MEDS: PROTONIX PO SCH (06:08)
[2020-04-01] MEDS: NYSTATIN ORAL SUSP PO SCH ×2 (06:09→10:05)
--- NOTE | 2020-04-01 08:41 | PCM.PROG ---
Attending Provider: ATTENDING PROVIDER: Dr. JULIO PORRAS This patient is seen with Courtney Erickson, Nurse Practitioner. DATE OF SERVICE: 04/01/20 SUBJECTIVE: This 84 year old /WHITE F was hospitalized 03/30/20. The patient didn't sleep very well. No vomiting since yesterday. States she is hungry this morning. Still elevated INR despite holding Coumadin yesterday. Urine culture was positive for e-coli though she denies symptoms. REVIEW OF SYSTEMS: CONSTITUTIONAL: No night sweats. No fatigue, malaise, lethargy. No fever or chills. Weakness. HEENT: Eyes: No visual changes. No eye pain. No eye discharge. ENT: No runny nose. No epistaxis. No sinus pain. No odynophagia. No congestion. RESPIRATORY: No cough, no congestion. No hemoptysis. No shortness of breath. CARDIOVASCULAR: No angina symptoms. No CHF symptoms. No atypical chest pain for CAD. No palpitations. No orthopnea.. GASTROINTESTINAL: No abdominal pain. No nausea or vomiting. No diarrhea or constipation. No hematemesis. No hematochezia. GENITOURINARY: No urgency. No frequency. No dysuria. No hematuria. No obstructive symptoms. No discharge. No pain. No significant abnormal bleeding. MUSCULOSKELETAL: No musculoskeletal pain; no joint swelling. NEUROLOGICAL: Awake, alert, oriented to time, place and person. No headache. No neck pain. No syncope. No seizures. No dizziness. PSYCHIATRIC: Not anxious. No depression. No suicidal thoughts. No homicidal thoughts. SKIN: No rash. No lesions. No wounds. ENDOCRINE: No unexplained weight loss. No weight gain. HEMATOLOGIC/LYMPHATIC: No anemia. No purpura. No petechiae. No prolonged or excessive bleeding. No palpable lymph nodes. PHYSICAL EXAMINATION: GENERAL: The patient is awake, alert and oriented, sitting in the chair in no distress. VITAL SIGNS: Temperature 97.5 F, Pulse 56, Respiratory Rate 16, BP 96/53, Pulse Ox 95% HEENT: Head normocephalic, atraumatic. Eyes: Extraocular muscles are intact. Pupils are equal, round and reactive to light and accommodation. Ears: No lesions. Nose appeared normal. Throat: No exudate or erythema. NECK: Supple. No JVD, no carotid bruit. No lymphadenopathy or thyromegaly. LUNGS: Diminished breath sounds. Clear to auscultation. Percussion note normal. Chest symmetrical. HEART: S1, S2, no S3. No murmurs. Irregular heart rate. No cyanosis or clubbing. No ascites. Pulses: Dorsalis pedis and posterior tibial pulses +1 to +2 both sides. ABDOMEN: Soft. Non-tender. Bowel sounds active. No CVA tenderness. No mass felt. EXTREMITIES: No edema. Full range of motion of all extremities, equal. NEUROLOGIC: No focal deficit. Cranial nerves II through XII are grossly intact. No headache, no double vision or headache. SKIN: Not dry. Intact. Turgor-normal. LYMPHATIC: No palpable lymph nodes/no lymphedema. MUSCULOSKELETAL: Normal joints with no swelling. Muscle tone is normal. LAB REVIEW: 04/01/20 04:30 04/01/20 04:30 04/01/20 04:30: Sodium 131.0 L, Potassium 3.79, Chloride 97.8 L, Carbon Dioxide 26.8, Anion Gap 10.19, BUN 23.1 H, Creatinine 1.13, Estimated GFR (MDRD) 46.00, BUN/Creatinine Ratio 20.44, Glucose 107.7 H, Calcium 8.52, Total Bilirubin 0.36, AST 30.1, ALT 12.0, Alkaline Phosphatase 42.0 L, Total Protein 6.08 L, Albumin 3.11 L, Globulin 2.97, Albumin/Globulin Ratio 1.04 04/01/20 04:30: PT 49.7 H, INR 5.59 H* 04/01/20 04:30: WBC 9.82, RBC 3.80 L, Hgb 9.5 L, Hct 31.7 L, MCV 83.4, MCH 25.0 L, MCHC 30.0 L, RDW Coeff of Corby 19.3 H, Plt Count 226, Neutrophils % (Manual) 45.0, Lymphocytes % (Manual) 47.0, Monocytes % (Manual) 6.0, Metamyelocytes % 2.0, Anisocytosis Not present ASSESSMENT: Please see below. 1. Acute gastroenteritis 2. Hyponatremia 3. Hypercoagulation 4. Dehydration, improved 5. Chronic anemia 6. Atrial fibrillation 7. Asymptomatic UTI positive E-coli PLAN: 1. Will consider discharge 2. Hold Coumadin 3. Hold Clonidine this morning 4. DIG level 5. Keflex 500mg TID for 7 days. Plan and coordination of the patient's care discussed in the presence of Infant Nanny and nurse. SCRIBED BY: GRAY MORFIN [employer] scribed while in presence of service performed by Dr. Porras/Courtney Erickson APRN on 04/01/20 ([id number])
--- NOTE | 2020-04-01 09:17 | PN ---
DATE OF SERVICE: 03/30/20 - ADMISSION NOTE SUBJECTIVE: The patient was brought to the emergency room examined over there by me and ER physician. The main complaint is dry heaves with nausea and practically vomiting for three to four days. The patient says there is no real vomiting just the dry heaves. Denies any abdominal pain. No fever, no chills, No cough, no congestion. It all started after the patient had lunch outside that could have caused food poisoning according to the patient. She has multiple medical problems like diabetes mellitus, atrial fibrillation, congestive heart failure, hyperlipidemia, hypertension. REVIEW OF SYSTEMS: CONSTITUTIONAL: No night sweats. No fatigue, malaise, lethargy. No fever or chills. HEENT: Eyes: No visual changes. No eye pain. No eye discharge. ENT: No runny nose. No epistaxis. No sinus pain. No sore throat. No odynophagia. No congestion. RESPIRATORY: No cough, no congestion. No hemoptysis. No shortness of breath. CARDIOVASCULAR: No angina symptoms. No CHF symptoms. No atypical chest pain for CAD. No palpitations. No PND. No orthopnea. GASTROINTESTINAL: No abdominal pain. No nausea or vomiting. No diarrhea or constipation. No hematemesis. No hematochezia. GENITOURINARY: No urgency. No frequency. No dysuria. No hematuria. No obstructive symptoms. No discharge. No pain. No significant abnormal bleeding. MUSCULOSKELETAL: No musculoskeletal pain; no joint swelling. NEUROLOGICAL: No headache. No neck pain. No syncope. No seizures. No dizziness. PSYCHIATRIC: Not anxious. No depression. No suicidal thoughts. No homicidal thoughts. SKIN: No rash. No lesions. No wounds. ENDOCRINE: No unexplained weight loss. No weight gain. HEMATOLOGIC/LYMPHATIC: No anemia. No purpura. No petechiae. No prolonged or excessive bleeding. No palpable lymph nodes. PHYSICAL EXAMINATION: HEENT: Head normocephalic, atraumatic. Eyes: Extraocular muscles are intact. Pupils are equal, round and reactive to light and accommodation. Ears: No lesions. Nose appeared normal. Throat: No exudate or erythema. NECK: Supple. No JVD, no carotid bruit. No lymphadenopathy or thyromegaly. LUNGS: Decreased breath sounds. Clear to auscultation. Percussion note normal. Chest symmetrical. HEART: S1, S2, no S3. No murmurs. No cyanosis or clubbing. No ascites. Pulses: Dorsalis pedis and posterior tibial pulses +1 to +2 bilaterally. ABDOMEN: Soft. Nontender. Bowel sounds active. No CVA tenderness. No mass felt. EXTREMITIES: No pedal edema. Full range of motion of all extremities, equal. NEUROLOGIC: No focal deficit. Cranial nerves II through XII are grossly intact. No headache, no double vision or headache. SKIN: Dry. Mucous membranes dry. Intact. Turgor - poor. LYMPHATIC: No palpable lymph nodes/no lymphedema. MUSCULOSKELETAL: Normal joints with no swelling. Muscle tone is normal. LABS: Examined. The patient's creatinine and BUN are high. Amylase and lipase normal. The patient declined to have CT scan of the abdomen as requested by me and also by ER attending, she declined. The daughter was present in the room and she also tried to convince the patient and she says no, she doesn't want any further testing in the way of CT scans or chest x-ray. ASSESSMENT: 1. ACUTE GASTROENTERITIS, ETIOLOGY UNKNOWN, COULD BE FROM POISONING. 2. DEHYDRATION WITH RENAL AZOTEMIA. 3. HYPONATREMIA WITH SODIUM OF 127. ASSESSMENT: 1. Will be given Normal Saline. 2. Continue to monitor CBC, CMP. 3. Blood pressure was high so I gave an order to give patient Clonidine 0.1 mg p.o. twice a day for blood pressure systolic more than 150 and Vasotec IV 1.25 q.6, systolic blood pressure of 150. 4. The patient had not taken her medications so all the medications will be restarted. CONDITION: Stable. TIME SPENT: More than 30 minutes. Plan and coordination of the patient's care discussed in the presence of nurse. ANJANA
--- NOTE | 2020-04-01 09:28 | PN ---
DATE OF SERVICE: 03/31/20 SUBJECTIVE: The patient was hospitalized yesterday with dry heaves, nausea with vomiting. There was practically no vomiting but heaves lasted 2 to 3 days. Kidney functions were abnormal with GFR close to 40. She is feeling a lot better. No dry heaves. Her appetite has improved. She practically finished all of her lunch. The patient wants to go home. The daughter is in the room. REVIEW OF SYSTEMS: CONSTITUTIONAL: No night sweats. No fatigue, malaise, lethargy. No fever or chills. HEENT: Eyes: No visual changes. No eye pain. No eye discharge. ENT: No runny nose. No epistaxis. No sinus pain. No sore throat. No odynophagia. No congestion. RESPIRATORY: No cough, no congestion. No hemoptysis. No shortness of breath. CARDIOVASCULAR: No angina symptoms. No CHF symptoms. No atypical chest pain for CAD. No palpitations. No PND. No orthopnea. GASTROINTESTINAL: No abdominal pain. No nausea or vomiting. No diarrhea or constipation. No hematemesis. No hematochezia. GENITOURINARY: No urgency. No frequency. No dysuria. No hematuria. No obstructive symptoms. No discharge. No pain. No significant abnormal bleeding. MUSCULOSKELETAL: No musculoskeletal pain; no joint swelling. NEUROLOGICAL: No headache. No neck pain. No syncope. No seizures. No dizziness. PSYCHIATRIC: Not anxious. No depression. No suicidal thoughts. No homicidal thoughts. SKIN: No rash. No lesions. No wounds. ENDOCRINE: No unexplained weight loss. No weight gain. HEMATOLOGIC/LYMPHATIC: No anemia. No purpura. No petechiae. No prolonged or excessive bleeding. No palpable lymph nodes. PHYSICAL EXAMINATION: GENERAL: The patient is oriented to time, place and person. VITAL SIGNS: Temperature 97.8, pulse 70, respiratory rate 15, BP 150/92. HEENT: Head normocephalic, atraumatic. Eyes: Extraocular muscles are intact. Pupils are equal, round and reactive to light and accommodation. Ears: No lesions. Nose appeared normal. Throat: No exudate or erythema. NECK: Supple. No JVD, no carotid bruit. No lymphadenopathy or thyromegaly. LUNGS: Decreased breath sounds but clear to auscultation. Percussion note normal. Chest symmetrical. HEART: S1, S2, no S3. No murmurs. No cyanosis or clubbing. No ascites. Pulses: Dorsalis pedis and posterior tibial pulses +1 to +2 bilaterally. ABDOMEN: Soft. Nontender. Bowel sounds active. No CVA tenderness. No mass felt. EXTREMITIES: No edema. Full range of motion of all extremities, equal. NEUROLOGIC: No focal deficit. Cranial nerves II through XII are grossly intact. No headache, no double vision or headache. SKIN: Not dry. Intact. Turgor - normal. LYMPHATIC: No palpable lymph nodes/no lymphedema. MUSCULOSKELETAL: Normal joints with no swelling. Muscle tone is normal. ASSESSMENT: 1. Gastritis with dehydration with early renal azotemia seems to be resolved. The patient's hydration status has improved. Her skin turgor is a lot better, practically normal. 2. The patient's blood pressure is still elevated. PLAN: 1. Will put her on Clonidine 0.1 p.o. t.i.d. along with Zestril. 2. Will use Vasotec as needed. 3. The patient will be on Xanax 0.5 at night. 4. Very likely the patient's blood pressure may settle down once she is allowed to go home. She wants to go home tomorrow. CONDITION: Stable. TIME SPENT: More than 30 minutes. Plan and coordination of the patient's care discussed in the presence of nurse. ANJANA
[2020-04-01] MEDS: ACTOS PO SCH (09:49)
[2020-04-01] MEDS: MICRO-K CAP PO SCH (09:50)
[2020-04-01] MEDS: ZESTRIL PO SCH (09:50)
[2020-04-01] MEDS: FERROUS SULFATE PO SCH (09:50)
[2020-04-01] MEDS: ZYLOPRIM PO SCH (09:50)
[2020-04-01] MEDS: GLUCOPHAGE PO SCH (09:50)
[2020-04-01] MEDS: LANOXIN PO SCH (10:08)
[2020-04-01 12:34] VITALS: BP 119/57
[2020-04-01] MEDS: SODIUM CHLORIDE 1,000 ML IV SCH (13:40)
--- NOTE | 2020-04-01 13:53 | CM.DICTOOL ---
ADMISSION: 03/30/20 13:29 DISCHARGE: APRIL 01, 2020 DATE OF SERVICE: 04/01/20 FINAL DIAGNOSIS ACUTE GASTROENTERITIS HYPONATREMIA COAGULOPATHY DEHYDRATION, IMPROVED CHRONIC ANEMIA ATRIAL FIBRILLATION ASYMPTOMATIC UTI, POSITIVE FOR E- COLI HX: CELLULITIS, RLE - ACUTE CHRONIC LEG EDEMA BRONCHITIS - ACUTE GOUT DIABETIC NEUROPATHY ANEMIA ATRIAL FIBRILLATION, ON COUMADIN H/O CVA (10 YRS AGO) NEUROPATHY GERD OSTEOARTHRITIS DEGENERATIVE DISC DISEASE CHRONIC BACK PAIN SURGICAL PROCEDURES: CATARACT EXTRACTION LAST VITALS Temp Pulse Resp BP Pulse Ox 97.5 F L 56 L 16 119/57 L 95 04/01/20 05:55 04/01/20 12:33 04/01/20 05:55 04/01/20 12:33 04/01/20 05:55 TAKE THESE MEDICATIONS AT HOME Allopurinol (Zyloprim) 100 mg PO DAILY [facility] Last Admin: 04/01/20 09:50 Dose: 100 mg Documented by: Digoxin (Lanoxin) 125 mcg PO DAILY [facility] Last Admin: 04/01/20 10:08 Dose: Not Given Documented by: Ferrous Sulfate (Ferrous Sulfate) 324 mg PO DAILY [facility] Last Admin: 04/01/20 09:50 Dose: 324 mg Documented by: Gabapentin (Neurontin) 100 mg PO Q6H [facility] Last Admin: 04/01/20 10:04 Dose: 100 mg Documented by: Lisinopril (Zestril) 20 mg PO DAILY [facility] Last Admin: 04/01/20 09:50 Dose: 20 mg Documented by: Non-Formulary Medication (Rosuvastatin [Crestor]) 5 mg PO BEDTIME [facility] Last Admin: 03/31/20 20:48 Dose: Not Given Documented by: Non-Formulary Medication (Vit A-Vit F-Scvkyy-Nsrx-Copper [Vasb-Cjnv-Qjht(Vit A,C-Biotin)]) 1 each PO DAILY [facility] Last Admin: 04/01/20 09:44 Dose: Not Given Documented by: Ondansetron HCl (Zofran Tab) 4 mg PO Q8H PRN PRN Reason: Nausea / Vomiting Last Admin: 03/30/20 20:24 Dose: 4 mg Documented by: Pantoprazole Sodium (Protonix) 40 mg PO QDAC [facility] Last Admin: 04/01/20 06:08 Dose: 40 mg Documented by: Pioglitazone HCl (Actos) 15 mg, Metformin HCl (Glucophage) 850 mg (ACTO-PLUS MET ) PO BIDWM [facility] Last Admin: 04/01/20 09:49 Dose: 15 mg Documented by: Potassium Chloride (Micro-K Cap) 10 meq PO DAILYWM [facility] Last Admin: 04/01/20 09:50 Dose: 10 meq Documented by: Sotalol HCl (Betapace) 80 mg 1/2 TAB TO EQUAL 40 MG TID [facility] -- ( CHANGED) Last Admin: 03/31/20 20:37 Dose: Not Given Documented by: TRIAMCINOLONE ACETONIDE 15 GRAMS. TOPICAL BID PRN -- ( HOME MED) FUROSEMIDE 40 MG PO QDAC PRN ALLERGIES No Known Allergies Allergy (Unverified 03/29/20 14:50) DISCONTINUED MEDICATIONS HOLD COUMADIN , ONLY RESTART WHEN TELLS YOU TO NEW PRESCRIPTIONS: 1). CLONIDINE 0.1 MG PO DAILY PRN FOR SYSTOLIC BLOOD PRESSURE > 150 2). BETAPACE 40 MG ( 1/2 OF A 80 MG TABLET) TID 3). KEFLEX 500 MG PO TID X 7 DAYS SMOKING: NON- APPLICABLE DISEASE SPECIFIC EDUCATION: HYPERTENSION GASTROENETRITIS UTI DEHYDRATION A- FIB CHRONIC ANEMIA COUMADIN COVID LAB REVIEW: 04/01/20 04:30 04/01/20 04:30 04/01/20 04:30: Digoxin 0.98 04/01/20 04:30: Sodium 131.0 L, Potassium 3.79, Chloride 97.8 L, Carbon Dioxide 26.8, Anion Gap 10.19, BUN 23.1 H, Creatinine 1.13, Estimated GFR (MDRD) 46.00, BUN/Creatinine Ratio 20.44, Glucose 107.7 H, Calcium 8.52, Total Bilirubin 0.36, AST 30.1, ALT 12.0, Alkaline Phosphatase 42.0 L, Total Protein 6.08 L, Albumin 3.11 L, Globulin 2.97, Albumin/Globulin Ratio 1.04 04/01/20 04:30: PT 49.7 H, INR 5.59 H* 04/01/20 04:30: WBC 9.82, RBC 3.80 L, Hgb 9.5 L, Hct 31.7 L, MCV 83.4, MCH 25.0 L, MCHC 30.0 L, RDW Coeff of Corby 19.3 H, Plt Count 226, Neutrophils % (Manual) 45.0, Lymphocytes % (Manual) 47.0, Monocytes % (Manual) 6.0, Metamyelocytes % 2.0, Anisocytosis Not present PLAN: DISCHARGE: HOME TODAY INDEPENDENTLY, APRIL 01, 2020. ACTIVITY: UP TOLERATED WITH SMALL BASE QUAD CANE, USE WALKER NEEDED. FREQUENT REST PERIODS, NO STRENUOUS ACTIVITY, AVOID USE OF SHARP OBJECTS OR ACTIVITIES THAT COULD RESULT IN TRAUMA. AVOID DRIVING UNTIL RELEASED PER DIET: HEART HEALTHY. MD FOLLOW UP: SEE DR. PORRAS / JOELLE MANNING APRN / SERENA CASTRO APRN IN THE OFFICE ON WEDNESDAY, March. CALL [phone] OR GO TO THE NEAREST EMERGENCY ROOM IF CONCERNS DEPENDING ON THE SEVERITY. COUMADIN: DO NOT TAKE COUMADIN FOR NOW. WILL CHECK LEVEL IN MD OFFICE ON . CODE STATUS: DO NOT INTUBATE, CPR ONLY MRS NATHAN IS ALERT AND ORIENTED X 4. DECREASED MOOD STATES SHE IS LONELY. REFUSES NEW BEGINNINGS. SHE STATES GOD HELPS HER. SHE HAS NO ACUTE DEPRESSION OR HOPELESSNESS. SKIN IS WARM AND DRY. GETS UP WITH SMALL BASE QUAD CANE AND HAS MINIMAL WEAKNESS. FLUID AND NUTRITIONAL INTAKE IS FAIR AND IMPROVING. CONSUMED 100% OF BREAKFAST AND LUNCH TODAY. EATING BETTER AFTER SEVERAL DAYS OF NAUSEA. CONTINENT OF BOWEL AND BLADDER. LAST BM 03/30/2020. SHE DOES USUALLY DRIVE FOR ALL OF HER ERRANDS. MD JOELLE ALCARAZ APRN ALYCE HANNAN, APRN
--- NOTE | 2020-04-02 13:14 | HP ---
DATE OF SERVICE: 03/30/20 REASON FOR HOSPITALIZATION/HISTORY OF PRESENT ILLNESS: This is an 84-year-old white female who has had persistent nausea and vomiting for the past four to five days. She came to the ER the day before, had IV Zofran and fluids. Nausea and vomiting has persisted. She has been unable to eat or drink anything. PAST MEDICAL HISTORY: Spinal stenosis Atrial fibrillation on Coumadin Hypertension History of CVA with left hemiparesis in 2009 Dyslipidemia Bronchial asthma Diabetes mellitus Type 2 B12 deficiency Chronic anemia Diabetic neuropathy Chronic dermatitis History of shingles PAST SURGICAL HISTORY: NKDA REVIEW OF SYSTEMS: CONSTITUTIONAL: Positive for malaise, weakness. No night sweats. No fatigue, lethargy. No fever or chills. HEENT: Eyes: No visual changes. No eye pain. No eye discharge. ENT: No runny nose. No epistaxis. No sinus pain. No sore throat. No odynophagia. No ear pain. No congestion. RESPIRATORY: No cough, no congestion. No hemoptysis. No shortness of breath. CARDIOVASCULAR: No angina symptoms. No CHF symptoms. No atypical chest pain for CAD. No palpitations. No PND. No orthopnea. GASTROINTESTINAL: Decreased appetite. No abdominal pain. No diarrhea or constipation. No hematemesis. No hematochezia. GENITOURINARY: Decreased urinary output. No hematuria. No obstructive symptoms. No discharge. No pain. No significant abnormal bleeding. MUSCULOSKELETAL: No musculoskeletal pain. No joint swelling. No arthritis. NEUROLOGICAL: No headache. No neck pain. No syncope. No seizures. No dizziness. PSYCHIATRIC: Not anxious. No depression. No suicidal thoughts. No homicidal thoughts. SKIN: No rash. No lesions. No wounds. ENDOCRINE: No unexplained weight loss. No weight gain. HEMATOLOGIC/LYMPHATIC: No anemia. No purpura. No petechiae. No prolonged or excessive bleeding. No palpable lymph nodes. PERSONAL/FAMILY/SOCIAL HISTORY: She is , nonsmoker. No alcohol or ilicit drug use. MEDICATIONS: (HOME) Gabapentin 100 mg p.o. q.6h Digoxin 125 mcg p.o. daily Rosuvastatin 5 mg p.o. bedtime Potassium Chloride 10 mEq p.o. daily Pantoprazole 40 mg p.o. q.d a.c. Furosemide 40 mg p.o. q.d a.c. p.r.n. Allopurinol 100 mg p.o. daily Pioglitazone-Metformin one each p.o. b.i.d. Sotalol (Betapace) 80 mg p.o. b.i.d. Vitamin A-Vitamin Z-crucvo-Zvql-Copper one each p.o. daily Warfarin 3 mg p.o. q.p.m. Lisinopril 20 mg p.o daily Triamcinolone topical 15 gm b.i.d. p.r.n. Ondansetron 4 mg p.o. q.8h p.r.n. Iron 159 mg ER See Rx instructions Route. Complex ALLERGIES: NKDA PHYSICAL EXAMINATION: VITAL SIGNS: Temperature 97.6, heart rate 86, respirations 18, blood pressure 149/86, pulse ox 96%. HEENT: Head normocephalic, atraumatic. Eyes: Extraocular muscles are intact. Pupils are equal, round and reactive to light and accommodation. Ears: No lesions. Nose appeared normal. Throat: No exudate or erythema. NECK: Supple. No JVD, no carotid bruit. No lymphadenopathy or thyromegaly. LUNGS: Diminished breath sounds bilaterally. Clear to auscultation. Percussion note normal. Chest symmetrical. HEART: S1, S2, no S3. Irregular heartbeat consistent with atrial fibrillation. No cyanosis or clubbing. No ascites. Pulses: Dorsalis pedis and posterior tibial pulses +1 to +2 bilaterally. ABDOMEN: Soft. Nontender. Bowel sounds active. No CVA tenderness. No mass felt. EXTREMITIES: No leg edema. Full range of motion of all extremities, equal. NEUROLOGIC: No focal deficit. Cranial nerves II through XII are grossly intact. No headache, no double vision or headache. SKIN: Not dry. Intact. Turgor - normal. LYMPHATIC: No palpable lymph nodes/no lymphedema. MUSCULOSKELETAL: Normal joints with no swelling. Muscle tone is normal. LABS: White count 13.69, hemoglobin 11.7, hematocrit 37, platelets 277. Sodium 127, potassium 4.69, BUN 31, creatinine 1.64. AST 34, ALT 16.4, amylase 43, lipase 33. ASSESSMENT: 1. Acute gastritis. 2. Dehydration. 3. Generalized weakness. 4. Atrial fibrillation on Coumadin. PLAN: 1. We will admit. 2. Routine telemetry orders. 3. CBC, CMP daily. 4. Normal Saline 75 cc/hr. 5. CBC, CMP daily. 6. INR now and daily. 7. Zofran 4 mg IV q.6hr p.r.n. for nausea. 8. Liquid diet then will graduate to BRAT diet as tolerated. 9. Protonix 40 mg p.o. daily. 10. Continue all home medications. 11. The patient refuses CT of the abdomen and pelvis. 12. Will follow closely. TIME SPENT: More than 70 minutes. MTDD
--- NOTE | 2020-04-02 14:42 | PN ---
DATE OF SERVICE: 04/01/2020 SUBJECTIVE: The patient was seen and examined with Nurse Practitioner. The patient's condition is stable. She doesn't have dry heaves. Her kidney functions Creatinine and BUN are alot better. She eating better. Echo showed borderline enlargement of the LV cavity but otherwise normal LV contractility. Markedly enlarged left atrial cavity noted with calcified mitral valve anulus and aortic valves with no stenosis. The patient's condition is otherwise stable. She was advised to cut down on Betapace to 40mg three times a day. She has bradyarrhythmias with history of atrial fibrillation. TIME SPENT: More than 30 minutes. Plan and coordination of the patient's care discussed in the presence of nurse. ANJANA
--- NOTE | 2020-04-03 09:23 | DS ---
DATE OF SERVICE: 04/01/20 FINAL DIAGNOSIS: 1. ACUTE GASTROENTERITIS 2. HYPONATREMIA 3. COAGULOPATHY 4. DEHYDRATION, IMPROVED 5. CHRONIC ANEMIA 6. ATRIAL FIBRILLATION 7. ASYMPTOMATIC UTI, POSITIVE FOR E- COLI HX: 8. CELLULITIS, RLE - ACUTE 9. CHRONIC LEG EDEMA 10. BRONCHITIS - ACUTE 11. GOUT 12. DIABETIC NEUROPATHY 13. ANEMIA 14. ATRIAL FIBRILLATION, ON COUMADIN 15. H/O CVA (10 YRS AGO) 16. NEUROPATHY 17. GERD 18. OSTEOARTHRITIS 19. DEGENERATIVE DISC DISEASE 20. CHRONIC BACK PAIN SURGICAL PROCEDURES: 21. CATARACT EXTRACTION LAST VITALS Temp Pulse Resp BP Pulse Ox 97.5 F L 56 L 16 119/57 L 95 04/01/20 05:55 04/01/20 12:33 04/01/20 05:55 04/01/20 12:33 04/01/20 05:55 DISCHARGE INSTRUCTIONS: 1. DISCHARGE: HOME TODAY INDEPENDENTLY, APRIL 01, 2020. 2. MD FOLLOW UP: SEE DR. PORRAS/JOELLE MANNING APRN/SERENA CASTRO APRN IN THE OFFICE ON WEDNESDAY, APRIL 04. CALL [phone] OR GO TO THE NEAREST EMERGENCY ROOM IF CONCERNS DEPENDING ON THE SEVERITY. 3. COUMADIN: DO NOT TAKE COUMADIN FOR NOW. WILL CHECK LEVEL IN MD OFFICE ON . 4. CODE STATUS: DO NOT INTUBATE, CPR ONLY. MEDICATIONS AT DISCHARGE: Allopurinol (Zyloprim) 100 mg PO DAILY [facility] Last Admin: 04/01/20 09:50 Dose: 100 mg Documented by: Digoxin (Lanoxin) 125 mcg PO DAILY [facility] Last Admin: 04/01/20 10:08 Dose: Not Given Documented by: Ferrous Sulfate (Ferrous Sulfate) 324 mg PO DAILY [facility] Last Admin: 04/01/20 09:50 Dose: 324 mg Documented by: Gabapentin (Neurontin) 100 mg PO Q6H [facility] Last Admin: 04/01/20 10:04 Dose: 100 mg Documented by: Lisinopril (Zestril) 20 mg PO DAILY [facility] Last Admin: 04/01/20 09:50 Dose: 20 mg Documented by: Non-Formulary Medication (Rosuvastatin ) 5 mg PO BEDTIME [facility] Last Admin: 03/31/20 20:48 Dose: Not Given Documented by: Non-Formulary Medication (Vit A-Vit A-Wqciev-Eisy-Copper ) 1 each PO DAILY [facility] Last Admin: 04/01/20 09:44 Dose: Not Given Documented by: Ondansetron HCl (Zofran Tab) 4 mg PO Q8H PRN PRN Reason: Nausea / Vomiting Last Admin: 03/30/20 20:24 Dose: 4 mg Documented by: Pantoprazole Sodium (Protonix) 40 mg PO QDAC [facility] Last Admin: 04/01/20 06:08 Dose: 40 mg Documented by: Pioglitazone HCl (Actos) 15 mg, Metformin HCl (Glucophage) 850 mg (ACTO-PLUS MET ) PO BIDWM [facility] Last Admin: 04/01/20 09:49 Dose: 15 mg Documented by: Potassium Chloride (Micro-K Cap) 10 meq PO DAILYWM [facility] Last Admin: 04/01/20 09:50 Dose: 10 meq Documented by: Sotalol HCl (Betapace) 80 mg 1/2 TAB TO EQUAL 40 MG TID [facility] -- ( CHANGED) Last Admin: 03/31/20 20:37 Dose: Not Given Documented by: TRIAMCINOLONE ACETONIDE 15 GRAMS. TOPICAL BID PRN -- ( HOME MED) FUROSEMIDE 40 MG PO QDAC PRN NEW PRESCRIPTIONS: CLONIDINE 0.1 MG PO DAILY PRN FOR SYSTOLIC BLOOD PRESSURE > 150 BETAPACE 40 MG ( 1/2 OF A 80 MG TABLET) TID KEFLEX 500 MG PO TID X 7 DAYS DISCONTINUED MEDICATIONS: HOLD COUMADIN , ONLY RESTART WHEN DR TELLS YOU TO DIET INSTRUCTIONS: HEART HEALTHY ACTIVITY: UP TOLERATED WITH SMALL BASE QUAD CANE, USE WALKER NEEDED. FREQUENT REST PERIODS, NO STRENUOUS ACTIVITY, AVOID USE OF SHARP OBJECTS OR ACTIVITIES THAT COULD RESULT IN TRAUMA.AVOID DRIVING UNTIL RELEASED PER SMOKING: NON- APPLICABLE DISEASE SPECIFIC EDUCATION: HYPERTENSION GASTROENTERITIS UTI DEHYDRATION A-FIB CHRONIC ANEMIA COUMADIN COVID HOSPITAL COURSE: This is an 84-year-old white female who presented to the Emergency Room after having nausea and vomiting for four to five days. She was dehydrated and weak. She was admitted, placed on IV fluids. UA was abnormal, positive for E. coli, 80,000 colonies although she is asymptomatic. Will treat with Keflex 500 t.i.d. for 7 days as an outpatient. She has not had any vomiting for the past 36 hours. Sodium has improved from 127 to 131. INR was elevated initially. Today INR is elevated at 5.5. She has been instructed to continue to hold her Coumadin until she sees on or Wednesday of this week. Today, this morning, she ate some eggs and toast. She has kept this all down. Yesterday she had full liquid diet and was with no vomiting. Kidney function has steadily improved with IV fluids. She has been up and about. She states she is feeling much better. She is ready to go home today. We will send her home in stable condition. Dr. Porras is to perform an echo prior to discharge due to history of atrial fibrillation. She had some hypertension issues initially, was given Clonidine 0.1 t.i.d. This has since resolved. She is now hypotensive. Will d/c the Clonidine. We have also decreased her Bisoprolol to 40 mg t.i.d. I will reevaluate this when she comes in the office this week for followup appointment. LAB REVIEW: 04/01/20 04:30: Digoxin 0.98 04/01/20 04:30: Sodium 131.0 L, Potassium 3.79, Chloride 97.8 L, Carbon Dioxide 26.8, Anion Gap 10.19, BUN 23.1 H, Creatinine 1.13, Estimated GFR (MDRD) 46.00, BUN/Creatinine Ratio 20.44, Glucose 107.7 H, Calcium 8.52, Total Bilirubin 0.36, AST 30.1, ALT 12.0, Alkaline Phosphatase 42.0 L, Total Protein 6.08 L, Albumin 3.11 L, Globulin 2.97, Albumin/Globulin Ratio 1.04 04/01/20 04:30: PT 49.7 H, INR 5.59 H* 04/01/20 04:30: WBC 9.82, RBC 3.80 L, Hgb 9.5 L, Hct 31.7 L, MCV 83.4, MCH 25.0 L, MCHC 30.0 L, RDW Coeff of Corby 19.3 H, Plt Count 226, Neutrophils % (Manual) 45.0, Lymphocytes % (Manual) 47.0, Monocytes % (Manual) 6.0, Metamyelocytes % 2.0, Anisocytosis Not present TIME SPENT: More than 60 minutes. MTDD
--- NOTE | 2020-04-03 11:15 | ECHO2D ---
Date of Exam: 04/01/2020 Ordering Physician: DR. JULIO PORRAS Room #: 115 Reason for Echo: ATRIAL FIBRILLATION, SOB, H/O CHF M-Mode Normal Adult Results LV Dimensions Normal Adult Results AoV Opening excursions >1.6 >1.6 LVEDD-base- 3.5-5.8 5.8 Ao root dimensions 2.0-3.7 2.6 LVESD-base- 3.1-4.6 L. Atrium dimensions 1.9-3.8 6.9 Post. Wall thickness 0.8-1.1 1.1 IV septum (thickness) 0.7-1.2 1.2 Post. Wall excursion 0.72-1.3 NORMAL Septal motion NORMAL Systolic motion R. Ventricular cavity 1.5-2.0 NORMAL LVEF 60% 64% Paradoxical septal wall motion NORMAL 2-D : 2-D M Mode Echocardiogram was performed using apical four chamber and left parasternal long and short axis views. Mitral and tricuspid and valves appear to be normal. CALCIFIC AORTIC VALVES--NO STENOSIS. Contractility of the left ventricle seems to be normal. ENLARGED LEFT VENTRICLE CAVITY. MARKEDLY ENLARGED LEFT ATRIAL CAVITY SIZE. Aortic root appears to be normal. There is no pericardial effusion. There is no thrombus noted in the left ventricle or left atrial cavity. No mitral valve prolapse noted COLOR FLOW: MODERATE MITRAL REGURGITATION AND TRICUSPID REGURGITATION M-MODE: MV: NORMAL AV: CALCIFIC AORTIC VALVES TV: NORMAL PV: NORMAL CHAMBER SIZE: ENLARGED LEFT ATRIAL AND LEFT VENTRICLE CAVITIES WALL MOTION: NORMAL PERICARDIUM: NORMAL INTERPRETATION: 1. BORDERLINE LEFT VENTRICULAR HYPERTROPHY 2. MARKEDLY ENLARGED LEFT ATRIAL CAVITY 3. BORDERLINE ENLARGED LEFT VENTRICLE CAVITY 4. NORMAL LEFT VENTRICLE CONTRACTILITY 5. CALCIFIC AORTIC VALVES--NO STENOSIS MTDD
== END 2020-04-01 14:25 | disposition home or self-care (01) | DRG 392 ==
LOC: ED 11:34 → MEDSURG B 13:29
PROVIDERS: ADMIT Internal Medicine; ATTEND Internal Medicine
DX: E86.0 Dehydration; Z51.81 Encounter for therapeutic drug level monitoring; E11.9 Type 2 diabetes mellitus without complications; R10.9 Unspecified abdominal pain; I48.91 Unspecified atrial fibrillation; Z86.73 Personal history of transient ischemic attack (TIA), and cerebral infarction without residual deficits; I10 Essential (primary) hypertension; Z79.899 Other long term (current) drug therapy; Z79.01 Long term (current) use of anticoagulants; I50.9 Heart failure, unspecified; R53.1 Weakness; N39.0 Urinary tract infection, site not specified; D64.9 Anemia, unspecified; N28.9 Disorder of kidney and ureter, unspecified; R79.1 Abnormal coagulation profile; E78.5 Hyperlipidemia, unspecified; E87.1 Hypo-osmolality and hyponatremia; K52.9 Noninfective gastroenteritis and colitis, unspecified; B96.20 Unspecified Escherichia coli [E. coli] as the cause of diseases classified elsewhere

== ENCOUNTER 2021-01-26 09:01 | Inpatient (IN) ==
[2021-01-26 09:32] LABS: BASOPHILS # (AUTO) 0.1 K/uL (0-0.2); BASOPHILS % (AUTO) 0.8 % (0.0-3.0); EOSINOPHILS # (AUTO) 0.2 K/ul (0.0-0.7); EOSINOPHILS % (AUTO) 1.4 % (0.0-7.0); HEMATOCRIT 34.9 % (37.0-47.0); HEMOGLOBIN 10.8 g/dl (12.0-16.0); IMMATURE GRANULOCYTE % (AUTO) 0.3 % (0.0-5.0); LYMPHOCYTES # (AUTO) 4.8 K/uL (0.60-3.4); LYMPHOCYTES % (AUTO) 34.2 (10.0-50.0); MEAN CORPUSCULAR HEMOGLOBIN 24.3 pg (27.0-31.0); MEAN CORPUSCULAR HGB CONC 30.9 (31.8-35.4); MEAN CORPUSCULAR VOLUME 78.4 fl (81.0-99.0); MONOCYTES # (AUTO) 1.1 K/uL (0.4-2.0); MONOCYTES % (AUTO) 7.9 (0-10); NEUTROPHILS # (AUTO) 7.8 K/ul (2.0-6.9); NEUTROPHILS % (AUTO) 55.4 % (42.2-75.2); PLATELET COUNT 407 10^3/uL (140-440); RDW COEFFICIENT OF VARIATION 17.4 % (11.6-14.8); RED BLOOD COUNT 4.45 10^6/ul (4.20-5.40); WHITE BLOOD COUNT 14.13 K/ul (4.6-10.2)
[2021-01-26 09:42] LABS: ALANINE AMINOTRANSFERASE 12.9 U/L (0-35); ALBUMIN 3.6 g/dL (3.5-5.0); ALKALINE PHOSPHATASE 70.5 U/L (53-141); ASPARTATE AMINO TRANSFERASE 31.7 U/L (14-36); BILIRUBIN,TOTAL 0.69 mg/dL (0.2-1.3); BLOOD UREA NITROGEN 22.7 mg/dL (7-17); CALCIUM 9.17 mg/dL (8.4-10.2); CARBON DIOXIDE 24.9 mmol/L (22-30.0); CHLORIDE 100.2 mmol/L (98-107); CREATININE 0.97 mg/dL (0.60-1.30); GLUCOSE 117.2 mg/dL (74-106); POTASSIUM 4.68 mmol/L (3.5-5.1); SODIUM 132.8 mmol/L (134.5-145); TOTAL PROTEIN 7.11 g/dL (6.3-8.2)
--- NOTE | 2021-01-26 09:55 | ED.PDOC ---
General ED Provider: Dr. URVASHI CAR Chief Complaint: Non-specific Complaint Stated Complaint: i got mixed up on my coumadin--i had two blood stools--denies any abd pain or melanotic stools Time Seen by Provider: 01/26/21 09:16 Mode of Arrival: Walk-In Information Source: Patient Primary Care Provider: JULIO SHANE Nursing and Triage Documentation Reviewed and Agree: Yes Does patient meet sepsis criteria?: No System Inflammatory Response Syndrome: Not Applicable Sepsis Protocol: For patient's 13 years and over: Temp is 96.8 and below OR 101 and greater Pulse >90 BPM Resp >20/minute Acutely Altered Mental Status Are patient's symptoms suggestive of a new infection, such as: -Pneumonia -Skin, Soft Tissue -Endocarditis -UTI -Bone, Joint Infection -Implantable Device -Acute Abdominal Infection -Wound Infection -Meningitis -Blood Stream Catheter Infection -Unknown GI Complaint Exam GI Bleed Complaint/Exam Patient Complains of: Reports Rectal bleeding Onset/Duration: yesterday Symptoms Are: Still present Severity: Reports Bright red blood-rectum Location of Pain: Reports None Aggravating: Reports None and Bowel movement Alleviating: Reports None Associated Signs and Symptoms: Denies Back Pain, Pallor, Dizziness, Weakness, Syncope, Constipation, Nausea, Rectal pain, Bruising, Weight loss and Recent abnormal coags GI Bleed Risk Factors: Reports Coumadin use Recent Colonoscopy: No Recent EGD: No Abdominal Findings: Present None Differential Diagnoses: Blood Dyscrasia Review of Systems Review Of Systems Constitutional: Reports No symptoms Eyes: Reports No symptoms Ears, Nose, Mouth, Throat: Reports No symptoms Respiratory: Reports No symptoms Cardiac: Reports No symptoms GI: Reports Rectal bleeding : Reports No symptoms Musculoskeletal: Reports No symptoms Skin: Reports No symptoms Neurological: Reports No symptoms Endocrine: Reports No symptoms Hematologic/Lymphatic: Reports No symptoms All Other Systems: Reviewed and Negative PFSH Medical History Arrhythmia Asthma CVA (cerebral vascular accident) Diabetes Hypertension Family History FATHER Colon cancer Mother Stroke Social History Smoking and tobacco status: Never smoker Female Reproductive History Menstrual Hx Hysterectomy: No Hx Tubal Ligation: No Physical Exam Physical Exam Appearance: Reports Well-appearing Ill-appearing: Not Applicable Pain Distress: Not Applicable Eyes: Reports FRANK, EOMI and Conjunctiva clear ENT: Reports Ears normal, Nose normal and Oropharynx normal Neck: Supple Respiratory: Reports Airway patent, Breath sounds clear and Breath sounds equal Cardiovascular: Reports RRR, Pulses normal, No rub and No murmur GI/: Reports Soft, Nontender, No masses, Bowel sounds normal and No Organomegaly Musculoskeletal: Reports Normal strength, ROM intact and No edema Skin: Reports Warm, Dry and Normal color Neurological: Reports Sensation intact, Motor intact, Reflexes intact, Cranial nerves intact, Alert and Oriented Psychiatric: Reports Affect appropriate and Mood appropriate Physician Notification Case Discussed Physician Notified: dr shane Time of Notification: 10:15 Critical Care Note Critical Care Note Total Critical Care Time (mins): 15 Course Course Hematology/Chemistry: 01/26/21 09:26 01/26/21 09:26 Orders, Labs, Meds: Lab Review 01/26/21 01/26/21 01/26/21 09:26 09:26 09:26 WBC 14.13 H RBC 4.45 Hgb 10.8 L Hct 34.9 L MCV 78.4 L MCH 24.3 L MCHC 30.9 L RDW Coeff of [place] 17.4 H Plt Count 407 Immature Gran % (Auto) 0.3 Neut % (Auto) 55.4 Lymph % (Auto) 34.2 [place] % (Auto) 7.9 Eos % (Auto) 1.4 Baso % (Auto) 0.8 Neut # (Auto) 7.8 H Lymph # (Auto) 4.8 H Gregory # (Auto) 1.1 Eos # (Auto) 0.2 Baso # (Auto) 0.1 Immature Gran # (Auto) 0.0 PT 99.4 H INR 9.17 H* Sodium 132.8 L Potassium 4.68 Chloride 100.2 Carbon Dioxide 24.9 Anion Gap 12.38 BUN 22.7 H Creatinine 0.97 Estimated GFR (MDRD) 55.00 BUN/Creatinine Ratio 23.40 Glucose 117.2 H Calcium 9.17 Total Bilirubin 0.69 AST 31.7 ALT 12.9 Alkaline Phosphatase 70.5 Total Protein 7.11 Albumin 3.60 Globulin 3.51 Albumin/Globulin Ratio 1.02 Orders Category Date Time Status CBC W/ AUTO DIFF Stat LAB 01/26/21 09:26 Completed COMPREHENSIVE METABOLIC PANEL Stat LAB 01/26/21 09:26 Completed PT WITH INR Stat LAB 01/26/21 09:26 Completed Vital Signs: Temp Pulse Resp BP Pulse Ox 01/26/21 09:52 76 20 137/74 97 01/26/21 09:01 97.9 F 84 17 119/78 95 Discharge Plan Discharge Patient Disposition: ADMITTED INPATIENT Discharge Problem: Acute GI bleeding, Coagulopathy Prescriptions: No Action potassium chloride 10 MEQ capsule, extended release 10 meq PO DAILY RF: 0 lisinopril [Zestril] 20 MG tablet 20 mg PO DAILY RF: 0 pantoprazole 40 MG tablet,delayed release (DR/EC) 40 mg PO QDAC RF: 0 digoxin [Digox] 125 MCG tablet 125 mcg PO DAILY RF: 0 gabapentin 100 MG capsule 100 mg PO Q6H RF: 0 Nuoe-Mxfe-Yxsv(vit A,C-biotin) 1 EACH capsule 1 ea PO DAILY RF: 0 sotalol [Betapace] 80 mg Tablet 40 mg PO TID Qty: 45 RF: 0 cephalexin [Keflex] 500 mg Capsule 500 mg PO TID Qty: 21 RF: 0 ED Provider: URVASHI CAR Condition: Good Physician Progress Note: []
[2021-01-26 10:08] LABS: PROTHROMBIN TIME 99.4 SEC (9.3-11.0)
[2021-01-26 10:24] LABS: BORDETELLA PARAPERTUSSIS (PCR) NOT DETECTED (NOT DETECT); BORDETELLA PERTUSSIS (PCR) NOT DETECTED (NOT DETECT); CHLAMYDIA PNEUMONIAE (PCR) NOT DETECTED (NOT DETECT); CORONAVIRUS 229E (PCR) NOT DETECTED (NOT DETECT); CORONAVIRUS HKU1 (PCR) NOT DETECTED (NOT DETECT); CORONAVIRUS NL63 (PCR) NOT DETECTED (NOT DETECT); CORONAVIRUS OC43 (PCR) NOT DETECTED (NOT DETECT); HUMAN METAPNEUMOVIRUS (PCR) NOT DETECTED (NOT DETECT); HUMAN RHINOVIRUS/ENTEROV (PCR) NOT DETECTED (NOT DETECT); INFLUENZA B (PCR) NOT DETECTED (NOT DETECT); MYCOPLASMA PNEUMONIAE (PCR) NOT DETECTED (NOT DETECT); PARAINFLUENZA VIRUS 1 (PCR) NOT DETECTED (NOT DETECT); PARAINFLUENZA VIRUS 2 (PCR) NOT DETECTED (NOT DETECT); PARAINFLUENZA VIRUS 3 (PCR) NOT DETECTED (NOT DETECT); PARAINFLUENZA VIRUS 4 (PCR) NOT DETECTED (NOT DETECT); RESPIRATORY SYNCYTIAL V (PCR) NOT DETECTED (NOT DETECT); SARS_COV_2 (PCR) NOT DETECTED (NOT DETECT)
[2021-01-26] MEDS ORDERED: SODIUM CHLORIDE 1,000 ML IV SCH (10:30)
[2021-01-26] MEDS ORDERED: MEPHYTON PO STA (10:30)
--- NOTE | 2021-01-26 11:01 | DI ---
EXAM: Chest one view. HISTORY: Coagulopathy COMPARISON: 08/23/2018 chest x-ray FINDINGS: Heart is upper limits normal and pulmonary vascularity within normal limits. The lungs ar e satisfactory inflated with no active pulmonary infiltrate seen. Chronic appearing increased inters titial lung markings. Granulomatous calcifications are seen.No acute bone abnormality. IMPRESSION: Evidence of chronic lung findings with no active cardiac or pulmonary process seen.
[2021-01-26 11:16] LABS: ADENOVIRUS (PCR) NOT DETECTED (NOT DETECT)
[2021-01-26 12:34] VITALS: BMI 29.7
[2021-01-26 12:50] LABS: HEMATOCRIT 33.8 % (37.0-47.0)
[2021-01-26] MEDS: NEURONTIN PO SCH ×2 (13:31→17:32)
[2021-01-26] MEDS: PROTONIX PO SCH (13:45)
[2021-01-26] MEDS: ZESTRIL PO SCH (13:45)
[2021-01-26 14:31] LABS: HEMOGLOBIN 10.4 g/dl (12.0-16.0)
[2021-01-26] MEDS ORDERED: KEFLEX PO SCH (15:00)
[2021-01-26] MEDS: BETAPACE PO SCH ×2 (15:14→20:09)
[2021-01-26 18:18] LABS: HEMATOCRIT 35.1 % (37.0-47.0); HEMOGLOBIN 10.9 g/dl (12.0-16.0)
[2021-01-26] MEDS: VISTARIL PO PRN (20:10)
[2021-01-26] MEDS: ADVAIR 250-50 DISKUS IH SCH (20:10)
[2021-01-27 05:19] LABS: BASOPHILS # (AUTO) 0.1 K/uL (0-0.2); BASOPHILS % (AUTO) 0.7 % (0.0-3.0); EOSINOPHILS # (AUTO) 0.4 K/ul (0.0-0.7); EOSINOPHILS % (AUTO) 2.9 % (0.0-7.0); HEMATOCRIT 31.1 % (37.0-47.0); HEMOGLOBIN 9.6 g/dl (12.0-16.0); IMMATURE GRANULOCYTE % (AUTO) 0.3 % (0.0-5.0); LYMPHOCYTES # (AUTO) 5.5 K/uL (0.60-3.4); LYMPHOCYTES % (AUTO) 39.5 (10.0-50.0); MEAN CORPUSCULAR HEMOGLOBIN 24.6 pg (27.0-31.0); MEAN CORPUSCULAR HGB CONC 30.9 (31.8-35.4); MEAN CORPUSCULAR VOLUME 79.5 fl (81.0-99.0); MONOCYTES # (AUTO) 1.3 K/uL (0.4-2.0); MONOCYTES % (AUTO) 9.3 (0-10); NEUTROPHILS # (AUTO) 6.5 K/ul (2.0-6.9); NEUTROPHILS % (AUTO) 47.3 % (42.2-75.2); PLATELET COUNT 326 10^3/uL (140-440); RDW COEFFICIENT OF VARIATION 17.7 % (11.6-14.8); RED BLOOD COUNT 3.91 10^6/ul (4.20-5.40)
[2021-01-27 05:33] LABS: ALANINE AMINOTRANSFERASE 11.2 U/L (0-35); ALBUMIN 3.12 g/dL (3.5-5.0); ALKALINE PHOSPHATASE 58.6 U/L (53-141); ASPARTATE AMINO TRANSFERASE 30.4 U/L (14-36); BILIRUBIN,TOTAL 0.49 mg/dL (0.2-1.3); BLOOD UREA NITROGEN 19.9 mg/dL (7-17); CALCIUM 8.58 mg/dL (8.4-10.2); CARBON DIOXIDE 25.1 mmol/L (22-30.0); CHLORIDE 102.8 mmol/L (98-107); CREATININE 0.87 mg/dL (0.60-1.30); GLUCOSE 103.3 mg/dL (74-106); POTASSIUM 4.3 mmol/L (3.5-5.1); SODIUM 133.3 mmol/L (134.5-145); TOTAL PROTEIN 6.16 g/dL (6.3-8.2)
[2021-01-27 05:34] LABS: PROTHROMBIN TIME 25.8 SEC (9.3-11.0)
[2021-01-27 05:38] LABS: ANISOCYTOSIS 2+ (NOT PRESENT); HYPOCHROMASIA 1+ (NOT PRESENT)
[2021-01-27] MEDS ORDERED: PROTONIX PO SCH (06:30)
[2021-01-27] MEDS: SODIUM CHLORIDE 1,000 ML IV SCH ×2 (06:37→08:51)
[2021-01-27] MEDS: NEURONTIN PO SCH ×5 (06:38→23:12)
[2021-01-27] MEDS: PROTONIX PO SCH (06:44)
[2021-01-27] MEDS ORDERED: MICRO-K CAP PO SCH (08:30)
--- NOTE | 2021-01-27 08:33 | PCM.PROG ---
Attending Provider: ATTENDING PROVIDER: Dr. JULIO PORRAS This patient is seen with Courtney Erickson, Nurse Practitioner. DATE OF SERVICE: 01/27/21 SUBJECTIVE: This 85 year old /WHITE F was hospitalized 01/26/21. The patient is resting comfortably. No bowel movement through the night. INR is down to 2.4. REVIEW OF SYSTEMS: CONSTITUTIONAL: No night sweats. No fatigue, malaise, lethargy. No fever or chills. Weakness. HEENT: Eyes: No visual changes. No eye pain. No eye discharge. ENT: No runny nose. No epistaxis. No sinus pain. No odynophagia. No congestion. RESPIRATORY: No cough, no congestion. No hemoptysis. No shortness of breath. CARDIOVASCULAR: No angina symptoms. No CHF symptoms. No atypical chest pain for CAD. No palpitations. No orthopnea.. GASTROINTESTINAL: No abdominal pain. No nausea or vomiting. No diarrhea or constipation. No hematemesis. No hematochezia. GENITOURINARY: No urgency. No frequency. No dysuria. No hematuria. Melena. No obstructive symptoms. No discharge. No pain. No significant abnormal bleeding. MUSCULOSKELETAL: No musculoskeletal pain; no joint swelling. NEUROLOGICAL: Awake, alert, oriented to time, place and person. No headache. No neck pain. No syncope. No seizures. No dizziness. PSYCHIATRIC: Not anxious. No depression. No suicidal thoughts. No homicidal thoughts. SKIN: No rash. No lesions. No wounds. ENDOCRINE: No unexplained weight loss. No weight gain. HEMATOLOGIC/LYMPHATIC: No anemia. No purpura. No petechiae. No prolonged or excessive bleeding. No palpable lymph nodes. PHYSICAL EXAMINATION: GENERAL: The patient is awake, alert and oriented, lying in bed in no distress. VITAL SIGNS: Temperature 97.9 F, Pulse 72, Respiratory Rate 16, BP 126/64, Pulse Ox 97% HEENT: Head normocephalic, atraumatic. Eyes: Extraocular muscles are intact. Pupils are equal, round and reactive to light and accommodation. Ears: No lesions. Nose appeared normal. Throat: No exudate or erythema. NECK: Supple. No JVD, no carotid bruit. No lymphadenopathy or thyromegaly. LUNGS: Clear to auscultation. Percussion note normal. Chest symmetrical. HEART: Regular heart rate. S1, S2, no S3. No murmurs. No cyanosis or clubbing. No ascites. Pulses: Dorsalis pedis and posterior tibial pulses +1 to +2 both sides. ABDOMEN: Soft. Non-tender. Bowel sounds active. No CVA tenderness. No mass felt. EXTREMITIES: No edema. Full range of motion of all extremities, equal. NEUROLOGIC: No focal deficit. Cranial nerves II through XII are grossly intact. No headache. No double vision. SKIN: Not dry. Intact. Turgor-normal. LYMPHATIC: No palpable lymph nodes/no lymphedema. MUSCULOSKELETAL: Normal joints with no swelling. Muscle tone is normal. LAB REVIEW: 01/27/21 04:55 01/27/21 05:11 01/27/21 05:11: Sodium 133.3 L, Potassium 4.30, Chloride 102.8, Carbon Dioxide 25.1, Anion Gap 9.70, BUN 19.9 H, Creatinine 0.87, Estimated GFR (MDRD) 62.00, BUN/Creatinine Ratio 22.87, Glucose 103.3, Calcium 8.58, Total Bilirubin 0.49, AST 30.4, ALT 11.2, Alkaline Phosphatase 58.6, Total Protein 6.16 L, Albumin 3.12 L, Globulin 3.04, Albumin/Globulin Ratio 1.02 01/27/21 04:55: PT 25.8 H D, INR 2.41 D 01/27/21 04:55: WBC 13.80 H, RBC 3.91 L, Hgb 9.6 L, Hct 31.1 L, MCV 79.5 L, MCH 24.6 L, MCHC 30.9 L, RDW Coeff of [place] 17.7 H, Plt Count 326, Immature Gran % (Auto) 0.3, Neut % (Auto) 47.3, Lymph % (Auto) 39.5, [place] % (Auto) 9.3, Eos % (Auto) 2.9, Baso % (Auto) 0.7, Neut # (Auto) 6.5, Lymph # (Auto) 5.5 H, [place] # (Auto) 1.3, Eos # (Auto) 0.4, Baso # (Auto) 0.1, Immature Gran # (Auto) 0.0, Hypochromasia 1+, Anisocytosis 2+ 01/26/21 18:09: Blood Type A POSITIVE, Antibody Screen Negative 01/26/21 18:09: Hgb 10.9 L, Hct 35.1 L 01/26/21 12:32: Blood Type A POSITIVE 01/26/21 12:32: Hgb 10.4 L, Hct 33.8 L 01/26/21 10:20: Adenovirus (PCR) Not detected, B. pertussis DNA (PCR) Not detected, B.parapertussis DNA PCR Not detected, C. pneumoniae DNA (PCR) Not detected, Coronavirus OC43 (PCR) Not detected, Coronavirus HKU1 (PCR) Not detected, Coronavirus 229E (PCR) Not detected, Coronavirus NL63 (PCR) Not detected, Human Metapneumovir PCR Not detected, Influenza Type A (PCR) Not detected, Influenza B (RT-PCR) Not detected, M. pneumoniae (PCR) Not detected, Parainfluenza 1 (PCR) Not detected, Parainfluenza 2 (PCR) Not detected, Parainf luenza 3 (PCR) Not detected, Parainfluenza 4 (PCR) Not detected, RSV (PCR) Not detected, Entero/Rhino (PCR) Not detected, SARS-CoV-2 (PCR) Not detected 01/26/21 09:26: Sodium 132.8 L, Potassium 4.68, Chloride 100.2, Carbon Dioxide 24.9, Anion Gap 12.38, BUN 22.7 H, Creatinine 0.97, Estimated GFR (MDRD) 55.00, BUN/Creatinine Ratio 23.40, Glucose 117.2 H, Calcium 9.17, Total Bilirubin 0.69, AST 31.7, ALT 12.9, Alkaline Phosphatase 70.5, Total Protein 7.11, Albumin 3.60, Globulin 3.51, Albumin/Globulin Ratio 1.02 01/26/21 09:26: PT 99.4 H, INR 9.17 H* 01/26/21 09:26: WBC 14.13 H, RBC 4.45, Hgb 10.8 L, Hct 34.9 L, MCV 78.4 L, MCH 24.3 L, MCHC 30.9 L, RDW Coeff of [place] 17.4 H, Plt Count 407, Immature Gran % (Auto) 0.3, Neut % (Auto) 55.4, Lymph % (Auto) 34.2, [place] % (Auto) 7.9, Eos % (Auto) 1.4, Baso % (Auto) 0.8, Neut # (Auto) 7.8 H, Lymph # (Auto) 4.8 H, [place] # (Auto) 1.1, Eos # (Auto) 0.2, Baso # (Auto) 0.1, Immature Gran # (Auto) 0.0 ASSESSMENT: Please see below. 1. Blood in the stool 2. Chronic anemia 3. Hypercoagulation, resolved 4. History of atrial fibrillation PLAN: 1. Continue IV fluids 2. Will continue to hold Coumadin today 3. U/A 4. Digoxin level Plan and coordination of the patient's care discussed in the presence of Process Design Engineer and nurse. SCRIBED BY: GRAY MORFIN Scheduling Administrator scribed while in presence of service performed by Dr. Porras/Courtney Erickson APRN on 01/27/21 ([id number])
[2021-01-27] MEDS: ADVAIR 250-50 DISKUS IH SCH ×2 (08:50→20:14)
[2021-01-27] MEDS: LANOXIN PO SCH (08:50)
[2021-01-27] MEDS: BETAPACE PO SCH ×2 (08:51→20:14)
[2021-01-27] MEDS: ZESTRIL PO SCH (08:51)
[2021-01-27] MEDS ORDERED: ZESTRIL PO SCH (09:00)
[2021-01-27 09:32] LABS: BILIRUBIN,URINE Negative (NEGATIVE); CLARITY,URINE Clear (CLEAR); COLOR,URINE Yellow (YELLOW); GLUCOSE, URINE (UA) Negative (NEGATIVE); KETONES,URINE Negative (NEGATIVE); LEUKOCYTE ESTERASE ,URINE Negative (NEGATIVE); NITRITE,URINE Negative (NEGATIVE); PH,URINE 5.5 (5-9); PROTEIN,URINE Negative (NEGATIVE); URINE, BLOOD Negative (NEGATIVE); UROBILINOGEN,URINE 0.2 (0.2)
[2021-01-27] MEDS ORDERED: FLEXERIL PO PRN (10:48)
[2021-01-27] MEDS ORDERED: PIOGLITAZONE METFORMIN PO PRN (10:48)
[2021-01-27] MEDS ORDERED: DECADRON IM ONE (11:03)
[2021-01-27] MEDS: VISTARIL PO PRN (20:14)
[2021-01-27] MEDS ORDERED: CRESTOR PO SCH (21:00)
[2021-01-27] MEDS ORDERED: ROSUVASTATIN 5 MG PO SCH (21:00)
[2021-01-28] MEDS: SODIUM CHLORIDE 1,000 ML IV SCH (01:45)
[2021-01-28 05:08] LABS: HEMATOCRIT 31.6 % (37.0-47.0); HEMOGLOBIN 9.7 g/dl (12.0-16.0); MEAN CORPUSCULAR HEMOGLOBIN 24.6 pg (27.0-31.0); MEAN CORPUSCULAR HGB CONC 30.7 (31.8-35.4); PLATELET COUNT 312 10^3/uL (140-440); RDW COEFFICIENT OF VARIATION 17.8 % (11.6-14.8); RED BLOOD COUNT 3.95 10^6/ul (4.20-5.40); WHITE BLOOD COUNT 15.49 K/ul (4.6-10.2)
[2021-01-28 05:14] LABS: ANISOCYTOSIS NOT PRESENT (NOT PRESENT)
[2021-01-28 05:20] LABS: PROTHROMBIN TIME 19.4 SEC (9.3-11.0)
[2021-01-28 05:23] LABS: ALANINE AMINOTRANSFERASE 12.4 U/L (0-35); ALBUMIN 3.2 g/dL (3.5-5.0); ALKALINE PHOSPHATASE 59.3 U/L (53-141); BILIRUBIN,TOTAL 0.33 mg/dL (0.2-1.3); BLOOD UREA NITROGEN 16.2 mg/dL (7-17); CALCIUM 8.98 mg/dL (8.4-10.2); CHLORIDE 104.6 mmol/L (98-107); CREATININE 0.93 mg/dL (0.60-1.30); GLUCOSE 117.8 mg/dL (74-106); POTASSIUM 4.73 mmol/L (3.5-5.1); SODIUM 137.5 mmol/L (134.5-145); TOTAL PROTEIN 6.35 g/dL (6.3-8.2)
[2021-01-28 05:54] VITALS: BP 110/58; TEMP 97.9
[2021-01-28] MEDS: PROTONIX PO SCH (05:54)
[2021-01-28] MEDS: NEURONTIN PO SCH ×2 (05:54→11:59)
[2021-01-28] MEDS ORDERED: LASIX TAB PO SCH (06:30)
[2021-01-28] MEDS ORDERED: AMARYL PO SCH (08:30)
[2021-01-28] MEDS ORDERED: ZYLOPRIM PO SCH (09:00)
--- NOTE | 2021-01-28 09:08 | PCM.PROG ---
Attending Provider: ATTENDING PROVIDER: Dr. JULIO PORRAS This patient is seen with Courtney Erickson, Nurse Practitioner. DATE OF SERVICE: 01/28/21 SUBJECTIVE: This 85 year old /WHITE F was hospitalized 01/26/21. Hgb is stable today. No episodes of bloody stools Blood in the stool is likely due to h emorrhoids and hypercoagulation. The patient would like to go home today. REVIEW OF SYSTEMS: CONSTITUTIONAL: No night sweats. No fatigue, malaise, lethargy. No fever or chil ls. Weakness. HEENT: Eyes: No visual changes. No eye pain. No eye discharge. ENT: No runny nose. No epistaxis. No sinus pain. No odynophagia. No congestion. RESPIRATORY: No cough, no congestion. No hemoptysis. No shortness of breath. CARDIOVASCULAR: No angina symptoms. No CHF symptoms. No atypical chest pain for CAD. No palpitations. No orthopnea.. GASTROINTESTINAL: No abdominal pain. No nausea or vomiting. No diarrhea or constipation. No hematemesis. No hematochezia. GENITOURINARY: No urgency. No frequency. No dysuria. No hematuria. No obstructive symptoms. No discharge. No pain. No significant abnormal bleeding. MUSCULOSKELETAL: No musculoskeletal pain; no joint swelling. NEUROLOGICAL: Awake, alert, oriented to time, place and person. No headache. No neck pain. No syncope. No seizures. No dizziness. PSYCHIATRIC: Not anxious. No depression. No suicidal thoughts. No homicidal thoughts. SKIN: No rash. No lesions. No wounds. ENDOCRINE: No unexplained weight loss. No weight gain. HEMATOLOGIC/LYMPHATIC: No anemia. No purpura. No petechiae. No prolonged or excessive bleeding. No palpable lymph nodes. PHYSICAL EXAMINATION: GENERAL: The patient is awake, alert and oriented, lying in bed in no distress. VITAL SIGNS: Temperature 97.9 F, Pulse 74, Respiratory Rate 18, BP 110/58, Pulse Ox 95% HEENT: Head normocephalic, atraumatic. Eyes: Extraocular muscles are intact. Pupils are equal, round and reactive to light and accommodation. Ears: No lesions. Nose appeared normal. Throat: No exudate or erythema. NECK: Supple. No JVD, no carotid bruit. No lymphadenopathy or thyromegaly. LUNGS: Diminished breath sounds. Clear to auscultation. Percussion note normal. Chest symmetrical. HEART: S1, S2, no S3. No murmurs. No cyanosis or clubbing. No ascites. Pulses: Dorsalis pedis and posterior tibial pulses +1 to +2 both sides. ABDOMEN: Soft. Non-tender. Bowel sounds active. No CVA tenderness. No mass felt. EXTREMITIES: No edema. Full range of motion of all extremities, equal. NEUROLOGIC: No focal deficit. Cranial nerves II through XII are grossly intact. No headache. No double vision. SKIN: Not dry. Intact. Turgor-normal. LYMPHATIC: No palpable lymph nodes/no lymphedema. MUSCULOSKELETAL: Normal joints with no swelling. Muscle tone is normal. LAB REVIEW: 01/28/21 04:50 01/28/21 04:50 01/28/21 04:50: Sodium 137.5, Potassium 4.73, Chloride 104.6, Carbon Dioxide 26.0, Anion Gap 11.63, BUN 16.2, Creatinine 0.93, Estimated GFR (MDRD) 57.00, BUN/Creatinine Ratio 17.41, Glucose 117.8 H, Calcium 8.98, Total Bilirubin 0.33, AST 30.0, ALT 12.4, Alkaline Phosphatase 59.3, Total Protein 6.35, Albumin 3.20 L, Globulin 3.15, Albumin/Globulin Ratio 1.01 01/28/21 04:50: PT 19.4 H D, INR 1.82 01/28/21 04:50: WBC 15.49 H, RBC 3.95 L, Hgb 9.7 L, Hct 31.6 L, MCV 80.0 L, MCH 24.6 L, MCHC 30.7 L, RDW Coeff of [place] 17.8 H, Plt Count 312, Neutrophils % (Manual) 64.0, Lymphocytes % (Manual) 30.0, Monocytes % (Manual) 4.0, Eosinophils % (Manual) 2.0, Anisocytosis Not present 01/27/21 09:21: Urine Color Yellow, Urine Clarity Clear, Urine pH 5.5, Ur Specific [place] >=1.030, Urine Protein Negative, Urine Glucose (UA) Negative, Urine Ketones Negative, Urine Blood Negative, Urine Nitrite Negative, Urine Bilirubin Negative, Urine Urobilinogen 0.2, Ur Leukocyte Esterase Negative 01/27/21 04:15: Digoxin 0.90 ASSESSMENT: Please see below. 1. Hypercoagulopathy, resolved 2. Blood in stool likely from hemorrhoids 3. Chronic anemia 4. Diabetes mellitus type II 5. History of noncompliance with medications, diet and followup. PLAN: 1. We will discharge home this afternoon 2. Resume Coumadin 3. Followup in the office Wednesday Plan and coordination of the patient's care discussed in the presence of Plant Electrical Engineer and nurse. SCRIBED BY: Olimpia ANTOINE scribed while in presence of service performed by Dr. Porras/Courtney Erickson APRN on 01/28/21 ([id number])
[2021-01-28] MEDS: ADVAIR 250-50 DISKUS IH SCH (10:05)
[2021-01-28] MEDS: LANOXIN PO SCH (10:05)
[2021-01-28] MEDS: ZESTRIL PO SCH (10:06)
[2021-01-28] MEDS: BETAPACE PO SCH (10:06)
--- NOTE | 2021-01-28 10:39 | CM.DICTOOL ---
ADMISSION: 01/26/21 11:30 DISCHARGE: 01/28/21 DATE OF SERVICE: 01/28/21 FINAL DIAGNOSIS BLOOD IN STOOL - LIKELY HEMORRHOIDAL HYPERCOAGULOPATHY - RESOLVED CHRONIC ANEMIA CVA ATRIAL FIBRILLATION HYPERTENSION DYSLIPIDEMIA ASTHMA DIABETES MELLITUS, TYPE 2 GERD GOUT OSTEOARTHRITIS DEGENERATIVE DISC DISEASE, LUMBAR CHRONIC BACK PAIN NEUROPATHY NONCOMPLIANCE WITH DIET, MEDICATIONS, AND FOLLOW-UP CATARACT EXTRACTION LAST VITALS Temp Pulse Resp BP Pulse Ox 97.9 F 74 18 110/58 L 95 01/28/21 05:50 01/28/21 05:50 01/28/21 05:50 01/28/21 05:50 01/28/21 05:50 TAKE THESE MEDICATIONS AT HOME Cyclobenzaprine HCl (Cyclobenzaprine Hcl 10 Mg Tablet) 10 mg PO BID PRN PRN Reason: Spasms Digoxin (Digoxin 125 Mcg Tablet) 125 mcg PO DAILY [facility] Last Admin: 01/27/21 08:50 Dose: 125 mcg Gabapentin (Gabapentin 100 Mg Capsule) 100 mg PO Q6HR [facility] Last Admin: 01/28/21 05:54 Dose: 100 mg Lisinopril (Lisinopril 20 Mg Tablet) 20 mg PO DAILY [facility] Last Admin: 01/27/21 08:51 Dose: 20 mg Pantoprazole Sodium (Pantoprazole Sodium 40 Mg Tablet.Dr) 40 mg PO QDAC [facility] Last Admin: 01/28/21 05:54 Dose: 40 mg Fluticasone/Salmeterol (Fluticasone/Salmeterol 250/50 Diskus) 1 puff IH BID [facility] Last Admin: 01/27/21 20:14 Dose: 1 puff Sotalol HCl (Sotalol Hcl 80 Mg Tablet) 80 mg PO BID [facility] Last Admin: 01/27/21 20:14 Dose: 80 mg Warfarin Sodium (Warfarin Sodium 4 Mg Tablet) 4 mg PO 1700 [facility] Resume tonight, 01/28/2021 Hair, Skin, and Nails Multivitamin 1 tablet PO QDAY Resume today ALLERGIES No Known Allergies Allergy (Verified 01/26/21 09:23) DISCONTINUED MEDICATIONS Potassium Chloride (Potassium Chloride 10 Meq Capsule.Er) 10 meq PO DAILY MKIE discontinued per pt Pioglitazone-Metformin - per pt, discontinued per Dr. Fox at previous office follow-up d/t weight loss Glimepiride - per pt discontinued per Dr. Fox at previous office follow-up d/t weight loss Furosemide - per pt no longer need s/p weight loss as dependent edema has r esolved Crestor - discontinued per pt Allopurinol - discontinued per pt NEW PRESCRIPTIONS: NONE SMOKING: NEVER SMOKER DISEASE SPECIFIC EDUCATION: CHRONIC ANEMIA ATRIAL FIBRILLATION COMPLIANCE WITH MEDICATIONS ADA DIET LAB REVIEW: 01/28/21 04:50 01/28/21 04:50 01/28/21 04:50: Hemoglobin A1c 6.14 H 01/28/21 04:50: Sodium 137.5, Potassium 4.73, Chloride 104.6, Carbon Dioxide 26.0, Anion Gap 11.63, BUN 16.2, Creatinine 0.93, Estimated GFR (MDRD) 57.00, BUN/Creatinine Ratio 17.41, Glucose 117.8 H, Calcium 8.98, Total Bilirubin 0.33, AST 30.0, ALT 12.4, Alkaline Phosphatase 59.3, Total Protein 6.35, Albumin 3.20 L, Globulin 3.15, Albumin/Globulin Ratio 1.01 01/28/21 04:50: PT 19.4 H D, INR 1.82 01/28/21 04:50: WBC 15.49 H, RBC 3.95 L, Hgb 9.7 L, Hct 31.6 L, MCV 80.0 L, MCH 24.6 L, MCHC 30.7 L, RDW Coeff of [place] 17.8 H, Plt Count 312, Neutrophils % (Manual) 64.0, Lymphocytes % (Manual) 30.0, Monocytes % (Manual) 4.0, Eosinophils % (Manual) 2.0, Anisocytosis Not present 01/27/21 09:21: Urine Color Yellow, Urine Clarity Clear, Urine pH 5.5, Ur Specific [place] >=1.030, Urine Protein Negative, Urine Glucose (UA) Negative, Urine Ketones Negative, Urine Blood Negative, Urine Nitrite Negative, Urine Bilirubin Negative, Urine Urobilinogen 0.2, Ur Leukocyte Esterase Negative PLAN: PLAN TO DISCHARGE HOME TODAY, . DIET: REGULAR ADA DIET ACTIVITY: UP TOLERATED WITH WALKER OR QUAD CANE REPORTS HAVING X3 ROLLING WALKERS - STATIONED IN HOME, IN GARAGE, AND IN CAR. PT DENIES NEEDING ANY ADDITIONAL DME EQUIPMENT. FOLLOW-UP: DR. FOX / JOELLE MANNING APRN / CARLOS CASTRO APRN FEBRUARY 03 08:45 AM CODE STATUS: FULL CODE MRS. NATHAN IS ALERT AND ORIENTED, SITTING UP IN THE CHAIR THIS MORNING. PATIENT IS AGREEABLE TO PLAN TO DISCHARGE HOME TODAY. PT REPORTS NO FURTHER BLOODY STOOLS AND THINKING SHE MAY HAVE TAKEN AN EXTRA DOSE OF COUMADIN. THIS MOST LIKELY LED TO HYPERCOAGULOPATHY WITH PROBABLE HEMORRHOIDAL BLEEDING. PT IS CURRENTLY NOT TAKING IRON PRESCRIBED, REPORTS CAUSES STOMACH UPSET. COUNSELLED PT ON THE IMPORTANCE OF COMPLIANCE WITH MEDICATION REGIMEN AND CO- MORBID CONDITIONS. PT VERBALIZED UNDERSTANDING. PT HAS A HISTORY OF AFIB, RATE CURRENTLY 60-70, WELL CONTROLLED. RESPIRATIONS EVEN AND UNLABORED, BREATH SOUNDS CLEAR AND DIMINISHED. ABDOMEN SOFT AND NONTENDER, BOWEL SOUNDS ACTIVE X4. LAST BM 01/27/21 WITH NO REPORTED BLOOD. PT IS CONTINENT OF BOWEL AND BLADDER. GAIT SLOW AND STEADY, PT USES WALKER OR QUAD CANE WITH AMBULATION. PT'S APPETITE IS FAIR, EATING 50% OF MEALS. SKIN IS WD&I. PLAN TO RESUME COUMADIN TONIGHT, FOLLOW-UP IN OFFICE ON WEDNESDAY. JULIO FOX M.D. PRAVEEN GRANT APRN
--- NOTE | 2021-01-28 14:44 | PN ---
DATE OF SERVICE: 01/26/21 - ADMIT NOTE SUBJECTIVE: The patient was seen and examined. The patient's daughter was present in the room. She has been hospitalized with INR of 9 and rectal bleed for the last couple of days, red blood, small amount while she had a bowel movement. Menometrorhagia seems to be stable 10 and 30. The patient has history of chronic anemia. The patient's hemoglobin and hematocrit is monitored. She is going to have type and screen for two units. The patient already got Vitamin K. Telemetry to monitor cardiac rhythm. Cardiovascular status - the patient has no symptoms of CHF or coronary insufficiency. PLAN: 1. Hold Coumadin and monitor INR. As mentioned above, Vitamin K has been given. There is no more rectal bleeding while in the hospital. CONDITION: Stable. TIME SPENT: More than 30 minutes. Plan and coordination of the patient's care discussed in the presence of nurse. ANJANA
[2021-01-28] MEDS ORDERED: COUMADIN PO SCH (17:00)
--- NOTE | 2021-01-29 08:56 | HP ---
DATE OF SERVICE: 01/26/21 HISTORY OF PRESENT ILLNESS: This is an 85-year-old white female presents to the emergency room. She states "I got mixed up on my Coumadin". She had two blood in stools. She denies any abdominal pain. She thinks she took an extra Coumadin. PAST MEDICAL HISTORY: History of CVA Atrial fibrillation on chronic anticoagulation with Coumadin Hypertension Dyslipidemia Asthma Diabetes mellitus Type 2 GERD Gout Osteoarthritis Degenerative disk disease of the lumbar Chronic back pain Neuropathy History of noncompliance with diet, medications and followup PAST SURGICAL HISTORY: Cataract extraction REVIEW OF SYSTEMS: CONSTITUTIONAL: Weakness. No night sweats. No fatigue, malaise, lethargy. No fever or chills. HEENT: Eyes: No visual changes. No eye pain. No eye discharge. ENT: No runny nose. No epistaxis. No sinus pain. No sore throat. No odynophagia. No ear pain. No congestion. RESPIRATORY: No cough, no congestion. No hemoptysis. No shortness of breath. CARDIOVASCULAR: No angina symptoms. No CHF symptoms. No atypical chest pain for CAD. No palpitations. No PND. No orthopnea. GASTROINTESTINAL: No abdominal pain. No nausea or vomiting. No diarrhea or constipation. No hematemesis. Positive for blood in stool. GENITOURINARY: No urgency. No frequency. No dysuria. No hematuria. No obstructive symptoms. No discharge. No pain. No significant abnormal bleeding. MUSCULOSKELETAL: No musculoskeletal pain. No joint swelling. No arthritis. NEUROLOGICAL: No headache. No neck pain. No syncope. No seizures. No dizziness. PSYCHIATRIC: Not anxious. No depression. No suicidal thoughts. No homicidal thoughts. SKIN: No rash. No lesions. No wounds. ENDOCRINE: No unexplained weight loss. No weight gain. HEMATOLOGIC/LYMPHATIC: No anemia. No purpura. No petechiae. No prolonged or excessive bleeding. No palpable lymph nodes. PERSONAL/FAMILY/SOCIAL HISTORY: She is . She lives at home by herself. Nonsmoker. No alcohol or ilicit drug use. MEDICATIONS: Gabapentin 100 mg p.o. q.6h Digoxin 125 mcg p.o. daily Pantoprazole 40 mg p.o. q.d a.c. Vitamin A-vitamin B-[id number]-copper (hair, skin and nails softgel) 2,500 unit - 100 mg -2,500 mcg capsule - one each daily Lisinopril 20 mg p.o. daily Warfarin 4 mg p.o. daily Fluticasone propion-salmeterol 250-50 mcg/dose blister with device on INH b.i.d. Pioglitazone-Metformin 15-850 mg one tab p.o. b.i.d. p.r.n. Glimepiride 2 mg p.o. daily Lasix 40 mg p.o. daily Cyclobenzaprine 10 mg p.o. b.i.d. p.r.n. Sotalol 80 mg p.o. b.i.d. Rosuvastatin 5 mg p.o. bedtime Allopurinol 100 mg p.o. daily Potassium Chloride 10 mEq p.o. daily ALLERGIES: NKDA PHYSICAL EXAMINATION: VITAL SIGNS: Temperature 97.9, heart rate 84, respirations 17, blood pressure 119/78, pulse ox 95%. HEENT: Head normocephalic, atraumatic. Eyes: Extraocular muscles are intact. Pupils are equal, round and reactive to light and accommodation. Ears: No lesions. Nose appeared normal. Throat: No exudate or erythema. NECK: Supple. No JVD, no carotid bruit. No lymphadenopathy or thyromegaly. LUNGS: Diminished breath sounds. Clear to auscultation. Percussion note normal. Chest symmetrical. HEART: S1, S2, no S3. No murmur. No cyanosis or clubbing. No ascites. Pulses: Dorsalis pedis and posterior tibial pulses +1 to +2 bilaterally. ABDOMEN: Soft. Nontender. Bowel sounds active. No CVA tenderness. No mass felt. EXTREMITIES: No edema. Full range of motion of all extremities, equal. NEUROLOGIC: Alert, oriented. No focal deficit. Cranial nerves II through XII are grossly intact. No headache, no double vision or headache. SKIN: Not dry. Intact. Turgor - normal. LYMPHATIC: No palpable lymph nodes/no lymphedema. MUSCULOSKELETAL: Normal joints with no swelling. Muscle tone is normal. White count 14, hemoglobin 10.8, hematocrit 34.9, platelets 407, Sodium 132, potassium 4.6, BUN 22, creatinine 0.97, glucose 117, INR 9.17. AST 31, ALT 12. Chest x-ray shows chronic lung findings. Respiratory panel for PCR was normal. ASSESSMENT: 1. RECTAL BLEEDING 2. HYPERCOAGULATION, INR 9.17 3. ATRIAL FIBRILLATION ON COUMADIN 4. DIABETES MELLITUS TYPE 2 PLAN: 1. We will admit. 2. Routine telemetry orders. 3. CBC, CMP daily. 4. Repeat hemoglobin in four hours. 5. Hold Coumadin. 6. Vitamin K 1 mg p.o. now. 7. Normal Saline IV at 50 cc/hr. 8. UA with culture and sensitivity. 9. Regular diet. 10. Continue other home medications. 11. A1C. TIME SPENT: More than 70 minutes. MTDD
--- NOTE | 2021-01-29 09:46 | DS ---
DATE OF SERVICE: 01/28/21 FINAL DIAGNOSIS: 1. BLOOD IN STOOL - LIKELY HEMORRHOIDAL 2. HYPERCOAGULOPATHY - RESOLVED 3. CHRONIC ANEMIA 4. CVA 5. ATRIAL FIBRILLATION 6. HYPERTENSION 7. DYSLIPIDEMIA 8. ASTHMA 9. DIABETES MELLITUS, TYPE 2 10. GERD 11. GOUT 12. OSTEOARTHRITIS 13. DEGENERATIVE DISC DISEASE, LUMBAR 14. CHRONIC BACK PAIN 15. NEUROPATHY 16. NONCOMPLIANCE WITH DIET, MEDICATIONS, AND FOLLOW-UP 17. CATARACT EXTRACTION LAST VITALS Temp Pulse Resp BP Pulse Ox 97.9 F 74 18 110/58 L 95 01/28/21 05:50 01/28/21 05:50 01/28/21 05:50 01/28/21 05:50 01/28/21 05:50 DISCHARGE INSTRUCTIONS: 1. PLAN TO DISCHARGE HOME TODAY, . 2. FOLLOWUP WITH DR. PORRAS/JOELLE MANNING APRN/CARLOS CASTRO APRN, [phone], FEBRUARY 03 @ 08:45 AM. MEDICATIONS AT DISCHARGE: Cyclobenzaprine HCl (Cyclobenzaprine Hcl 10 Mg Tablet) 10 mg PO BID PRN PRN Reason: Spasms Digoxin (Digoxin 125 Mcg Tablet) 125 mcg PO DAILY [facility] Last Admin: 01/27/21 08:50 Dose: 125 mcg Gabapentin (Gabapentin 100 Mg Capsule) 100 mg PO Q6HR [facility] Last Admin: 01/28/21 05:54 Dose: 100 mg Lisinopril (Lisinopril 20 Mg Tablet) 20 mg PO DAILY [facility] Last Admin: 01/27/21 08:51 Dose: 20 mg Pantoprazole Sodium (Pantoprazole Sodium 40 Mg Tablet.) 40 mg PO QDAC [facility] Last Admin: 01/28/21 05:54 Dose: 40 mg Fluticasone/Salmeterol (Fluticasone/Salmeterol 250/50 Diskus) 1 puff IH BID [facility] Last Admin: 01/27/21 20:14 Dose: 1 puff Sotalol HCl (Sotalol Hcl 80 Mg Tablet) 80 mg PO BID [facility] Last Admin: 01/27/21 20:14 Dose: 80 mg Warfarin Sodium (Warfarin Sodium 4 Mg Tablet) 4 mg PO 1700 MIKE Resume tonight, 01/28/2021 Hair, Skin, and Nails Multivitamin 1 tablet PO QDAY Resume today NEW PRESCRIPTIONS: NONE DISCONTINUED MEDICATIONS: Potassium Chloride (Potassium Chloride 10 Meq Capsule.Er) 10 meq PO DAILY MIKE discontinued per pt Pioglitazone-Metformin - per pt, discontinued per Dr. Porras at previous office follow-up d/t weight loss Glimepiride - per pt discontinued per Dr. Porras at previous office follow-up d/t weight loss Furosemide - per pt no longer need s/p weight loss as dependent edema has resolved Crestor - discontinued per pt Allopurinol - discontinued per pt DIET INSTRUCTIONS: REGULAR ADA DIET ACTIVITY: UP TOLERATED WITH WALKER OR QUAD CANE, REPORTS HAVING X3 ROLLING WALKERS - STATIONED IN HOME, IN GARAGE, AND IN CAR. PT DENIES NEEDING ANY ADDITIONAL DME EQUIPMENT. SMOKING: NEVER SMOKER DISEASE SPECIFIC EDUCATION: CHRONIC ANEMIA ATRIAL FIBRILLATION COMPLIANCE WITH MEDICATIONS ADA DIET HOSPITAL COURSE: This is an 85-year-old white female who was admitted through the emergency room. She had stated she had gotten mixed up on her Coumadin, taken an extra possibly. She had had some blood in her stools, bright red blood. Hemoglobin on admission was 10.8. INR was found to be at 9.17. She takes Coumadin on a daily basis for history of atrial fibrillation. She was admitted, given 1 gm of oral Vitamin K. Yesterday INR down to 3. We continued to hold Coumadin, no more Vitamin K. Today INR is normal at 1.8. She will restart her Coumadin tomorrow. She had two stools in the hospital with bright red blood which is likely from a hemorrhoid. No black stools. This has since resolved. She has not had any bowel movements in over 24 hours. Hemoglobin yesterday was 9.6, is 9.7 today. She does have a history of diabetes mellitus type 2 however she stated she had stopped taking all of her diabetic medication because she thought it had made her gain weight. A1C was done in the hospital which was 6.1. Sugars remained within normal limits. Hemoglobin did not drop any lower than 9.6. She did not require any transfusion. Again, I believe she had a bleed from a hemorrhoid and this occurred because of hypercoagulation. Medication education has been provided to her. Risk of bleeding with Coumadin have been discussed. She will be discharged today in stable condition and followup with us in the office on Wednesday and we will repeat a CBC. TIME SPENT: More than 60 minutes. MTDD
--- NOTE | 2021-01-29 13:31 | PN ---
DATE OF SERVICE: 01/27/2021 SUBJECTIVE: The patient was seen and examined with the Nurse Practitioner. The patient's INR is lower. No evidence of GI bleed. Condition is improving. She is feeling better. Cardiovascular status and respiratory status stable. TIME SPENT: More than 30 minutes. Plan and coordination of the patient's care discussed in the presence of nurse. ANJANA
--- NOTE | 2021-01-30 08:41 | PN ---
DATE OF SERVICE: 01/28/2021 SUBJECTIVE: The patient was seen and examined with the Nurse Practitioner. The patient's condition is stable. Her INR is acceptable. No GI bleed noted. Hgb and hct are stable. No symptoms of UTI. It was a mix up with abnormal cultures with normal U/A. TIME SPENT: More than 30 minutes. Plan and coordination of the patient's care discussed in the presence of nurse. ANJANA
--- NOTE | 2021-01-30 08:42 | PN ---
01/26/2021: Level 5 01/27/2021: Intermediate 01/28/2021: D as in discharge MTDD
== END 2021-01-28 12:30 | disposition home or self-care (01) | DRG 378 ==
LOC: ED 09:01 → MEDSURG A 11:30
PROVIDERS: ADMIT Internal Medicine; ATTEND Internal Medicine
DX: K92.1 Melena; Z20.822 Contact with and (suspected) exposure to COVID-19; D68.59 Other primary thrombophilia; K64.9 Unspecified hemorrhoids; K21.9 Gastro-esophageal reflux disease without esophagitis; M19.90 Unspecified osteoarthritis, unspecified site; E11.9 Type 2 diabetes mellitus without complications; D64.9 Anemia, unspecified; K92.2 Gastrointestinal hemorrhage, unspecified; Z79.01 Long term (current) use of anticoagulants; Z91.19 Patient's noncompliance with other medical treatment and regimen; I48.91 Unspecified atrial fibrillation; I10 Essential (primary) hypertension; E78.5 Hyperlipidemia, unspecified

== ENCOUNTER 2021-02-07 14:32 | Inpatient (IN) ==
[2021-02-07] MEDS ORDERED: SODIUM CHLORIDE 1,000 ML IV STA (15:20)
--- NOTE | 2021-02-07 15:24 | ED.PDOC ---
General ED Provider: Dr. URVASHI SANDERSON Chief Complaint: Back Pain Stated Complaint: Rt sided back pain with recurrent nausea and vomiting . Unable to keep liquids Time Seen by Provider: 02/07/21 14:45 Mode of Arrival: Walk-In Information Source: Patient Exam Limitations: No limitations Primary Care Provider: JULIO PORRAS Nursing and Triage Documentation Reviewed and Agree: Yes Does patient meet sepsis criteria?: No System Inflammatory Response Syndrome: Not Applicable Sepsis Protocol: For patient's 13 years and over: Temp is 96.8 and below OR 101 and greater Pulse >90 BPM Resp >20/minute Acutely Altered Mental Status Are patient's symptoms suggestive of a new infection, such as: -Pneumonia -Skin, Soft Tissue -Endocarditis -UTI -Bone, Joint Infection -Implantable Device -Acute Abdominal Infection -Wound Infection -Meningitis -Blood Stream Catheter Infection -Unknown Review of Systems Review Of Systems Constitutional: Reports Malaise Eyes: Reports No symptoms Ears, Nose, Mouth, Throat: Reports No symptoms Cardiac: Reports No symptoms GI: Reports Abdominal pain, Nausea and Vomiting : Reports No symptoms Musculoskeletal: Reports Back pain, Joint pain and Joint swelling Skin: Reports No symptoms Endocrine: Reports No symptoms Hematologic/Lymphatic: Reports No symptoms All Other Systems: Reviewed and Negative [facility] Medical History (Updated 02/17/21 @ 14:31 by EARLINE THOMAS) Asthma Atrial fibrillation Chronic anemia Chronic back pain CVA (cerebral vascular accident) DDD (degenerative disc disease), lumbar Diabetes mellitus, type 2 GERD (gastroesophageal reflux disease) Gout Hypertension Liver metastases Neuropathy Osteoarthritis Family History FATHER Colon cancer Mother Stroke Social History Smoking and tobacco status: Never smoker Surgical History History of cataract extraction Female Reproductive History Menstrual Hx Hysterectomy: No Hx Tubal Ligation: No Physical Exam Physical Exam Appearance: Reports Ill-appearing Ill-appearing: Moderate Pain Distress: Mild Eyes: Reports FRANK ENT: Reports Ears normal Neck: Supple Respiratory: Reports Airway patent and Breath sounds clear Cardiovascular: Reports RRR GI/: Reports Soft, Tender, Bowel sounds hypoactive and Hepatomegaly Musculoskeletal: Reports Normal strength and Edema Skin: Reports Warm Neurological: Reports Motor intact, Reflexes intact, Cranial nerves intact, Alert and Oriented Psychiatric: Reports Affect appropriate and Anxious Interpretation Radiology Interpretation Exam Interpreted: CT Scan (Extensive mediastinal lymphadenopathy. Incomplete visualization of upper abdominal/retroperitoneal lymphadenopathy. 2. Diffuse ground glass opacities and nodular densities which could be infectious, inflammatory or neoplastic. 3. Small to moderate right pleural effusion and trace left pleural eff) Critical Care Note Critical Care Note Total Critical Care Time (mins): 30 Course Course Hematology/Chemistry: 02/10/21 04:40 02/10/21 04:40 Orders, Labs, Meds: Lab Review 02/07/21 02/07/21 02/07/21 15:37 15:37 15:37 WBC 17.77 H RBC 4.24 Hgb 10.4 L Hct 33.4 L MCV 78.8 L MCH 24.5 L MCHC 31.1 L RDW Coeff of Corby 17.7 H Plt Count 338 Immature Gran % (Auto) 0.4 Neut % (Auto) 75.7 H Lymph % (Auto) 17.1 [place] % (Auto) 5.6 Eos % (Auto) 1.0 Baso % (Auto) 0.2 Neut # (Auto) 13.5 H Lymph # (Auto) 3.0 [place] # (Auto) 1.0 Eos # (Auto) 0.2 Baso # (Auto) 0.0 Immature Gran # (Auto) 0.1 PT 44.0 H INR 4.09 H* Sodium 133.1 L Potassium 5.58 H Chloride 97.7 L Carbon Dioxide 27.2 Anion Gap 13.78 BUN 38.2 H Creatinine 1.45 H Estimated GFR (MDRD) 34.00 BUN/Creatinine Ratio 26.34 Glucose 141.8 H Calcium 8.95 Magnesium 1.57 L Total Bilirubin 0.61 AST 35.1 ALT 16.8 Alkaline Phosphatase 75.5 Total Creatine Kinase 56.9 Total Protein 6.76 Albumin 3.42 L Globulin 3.34 Albumin/Globulin Ratio 1.02 Lipase 30.4 Adenovirus (PCR) B. pertussis DNA (PCR) B.parapertussis DNA PCR C. pneumoniae DNA (PCR) Coronavirus OC43 (PCR) Coronavirus HKU1 (PCR) Coronavirus 229E (PCR) Coronavirus NL63 (PCR) Human Metapneumovir PCR Influenza Type A (PCR) Influenza B (RT-PCR) M. pneumoniae (PCR) Parainfluenza 1 (PCR) Parainfluenza 2 (PCR) Parainfluenza 3 (PCR) Parainfluenza 4 (PCR) RSV (PCR) Entero/Rhino (PCR) SARS-CoV-2 (PCR) 02/07/21 17:58 WBC RBC Hgb Hct MCV MCH MCHC RDW Coeff of [place]by Plt Count Immature Gran % (Auto) Neut % (Auto) Lymph % (Auto) [place] % (Auto) Eos % (Auto) Baso % (Auto) Neut # (Auto) Lymph # (Auto) [place] # (Auto) Eos # (Auto) Baso # (Auto) Immature Gran # (Auto) PT INR Sodium Potassium Chloride Carbon Dioxide Anion Gap BUN Creatinine Estimated GFR (MDRD) BUN/Creatinine Ratio Glucose Calcium Magnesium Total Bilirubin AST ALT Alkaline Phosphatase Total Creatine Kinase Total Protein Albumin Globulin Albumin/Globulin Ratio Lipase Adenovirus (PCR) Not detected B. pertussis DNA (PCR) Not detected B.parapertussis DNA PCR Not detected C. pneumoniae DNA (PCR) Not detected Coronavirus OC43 (PCR) Not detected Coronavirus HKU1 (PCR) Not detected Coronavirus 229E (PCR) Not detected Coronavirus NL63 (PCR) Not detected Human Metapneumovir PCR Not detected Influenza Type A (PCR) Not detected Influenza B (RT-PCR) Not detected M. pneumoniae (PCR) Not detected Parainfluenza 1 (PCR) Not detected Parainfluenza 2 (PCR) Not detected Parainfluenza 3 (PCR) Not detected Parainfluenza 4 (PCR) Not detected RSV (PCR) Not detected Entero/Rhino (PCR) Not detected SARS-CoV-2 (PCR) Not detected Orders Category Date Time Status ADMIT PATIENT INPATIENT .TO [facility] (MONITORED BED) ADMISSION 02/07/21 18:57 Completed EKG-(ED ONLY) Stat CARDIO 02/07/21 15:25 Completed OXYGEN Routine CARDIO 02/07/21 19:07 Completed ACTIVITY .BR with BRP CARE 02/07/21 19:08 Completed INTAKE & OUTPUT Q8HR CARE 02/07/21 19:08 Completed TELEMETRY MONITORING TELE CARE 02/07/21 18:57 Completed VITAL SIGNS Q8HR CARE 02/07/21 19:08 Completed REGULAR DIET DIETARY 02/07/21 Dinner Completed IV [ED IV/MEDIPORT/POWERPORT] .ONCE EMERGENCY 02/07/21 15:20 Completed BLOOD CULTURE Routine LAB 02/07/21 19:28 Completed CBC W/ AUTO DIFF DAILY@0600 LAB 02/08/21 01:07 Completed CBC W/ AUTO DIFF DAILY@0600 LAB 02/09/21 04:33 Completed CBC W/ AUTO DIFF Stat LAB 02/07/21 15:37 Completed CMP [COMPREHENSIVE METABOLIC PANEL] Stat LAB 02/07/21 15:37 Completed COMPREHENSIVE METABOLIC PANEL DAILY@0600 LAB 02/09/21 04:33 Completed CPK [CREATINE KINASE] Stat LAB 02/07/21 15:37 Completed LIPASE Stat LAB 02/07/21 15:37 Completed MAGNESIUM Stat LAB 02/07/21 15:37 Completed PT WITH INR DAILY@0600 LAB 02/08/21 01:07 Completed PT WITH INR DAILY@0600 LAB 02/09/21 04:33 Completed PT WITH INR Stat LAB 02/07/21 15:37 Completed RESPIRATORY PANEL 2.1 (PCR) Stat LAB 02/07/21 17:58 Completed TROPONIN I Q8H LAB 02/08/21 01:07 Completed TROPONIN I Q8H LAB 02/08/21 09:37 Completed 0.9 % Sodium Chloride [Saline Flush] MEDS 02/07/21 15:20 Discontinued 1 syr IVF PRN PRN Acetaminophen [Tylenol] MEDS 02/07/21 19:07 Discontinued 650 mg PO Q4H PRN Ceftriaxone/D5w 1 gm Premix [Rocephin 1 gm/50 ml D5w] MEDS 02/07/21 19:30 Discontinued 1 gm in 50 ml IV DAILY Digoxin [Lanoxin] MEDS 02/08/21 09:00 Discontinued 125 mcg PO DAILY Fluticasone/Salmeterol 250/50 [Advair 250-50 Diskus] MEDS 02/07/21 19:30 Discontinued 1 puff IH BID Gabapentin [Neurontin] MEDS 02/07/21 19:30 Discontinued 100 mg PO Q6H Ketorolac Tromethamine [Toradol] MEDS 02/07/21 16:01 Discontinued 30 mg IVP ONCE ONE Lisinopril [Zestril] MEDS 02/08/21 09:00 Discontinued 20 mg PO DAILY Morphine Sulfate [Morphine 2 mg/ml Syringe] MEDS 02/07/21 19:05 Discontinued 2 mg IVP Q2-4H PRN Multivitamin [Multivitamin Tablet] MEDS 02/08/21 09:00 Discontinued 1 tab PO DAILY Ondansetron HCl/Pf [Zofran 4 mg/2 ml] MEDS 02/07/21 15:28 Discontinued 4 mg IVP ONCE STA Ondansetron HCl/Pf [Zofran 4 mg/2 ml] MEDS 02/07/21 18:59 Discontinued 4 mg IVP Q4-6H PRN Pantoprazole Sodium [Protonix] MEDS 02/08/21 06:30 Discontinued 40 mg PO QDAC Sodium Chloride 0.9% [Sodium Chloride] 1,000 ml MEDS 02/07/21 15:20 Discontinued IV BOLUS Sotalol HCl [Betapace] MEDS 02/07/21 21:00 Discontinued 80 mg PO BID Zolpidem Tartrate [Ambien] MEDS 02/07/21 19:10 Discontinued 5 mg PO ONCE ONE CT ABDOMEN/PELVIS WO CONTRAST Stat RADS 02/07/21 15:[address] CHEST W/O CONTRAST Stat RADS 02/07/21 15:24 Completed Medications Discontinued Medications Generic Name Dose Route Start Last Admin Trade Name Freq PRN Reason Stop Dose Admin Acetaminophen 650 mg 02/07/21 19:07 02/07/21 20:40 Acetaminophen 325 Mg Tablet PO 650 mg Q4H PRN Administration Fever >101 Alprazolam 0.25 - 0.5 mg 02/08/21 16:58 02/10/21 09:23 Alprazolam 0.25 Mg Tablet PO 0.25 mg QID PRN Administration Anxiety Dexamethasone Sodium Phosphate 2 mg 02/09/21 12:43 02/09/21 13:59 Dexamethasone Sod Phos 4 Mg/Ml Inj IM 02/09/21 12:44 2 mg ONCE ONE Administration Digoxin 125 mcg 02/08/21 09:00 02/09/21 09:22 Digoxin 125 Mcg Tablet PO 125 mcg DAILY MIKE Administration Docusate Sodium 100 mg 02/08/21 09:30 02/10/21 09:22 Docusate Sodium 100 Mg Capsule PO 100 mg BID MIKE Administration Furosemide 20 mg 02/09/21 12:43 02/09/21 13:59 Furosemide Inj 20 Mg/2 Ml Vial IVP 02/09/21 12:44 20 mg ONCE ONE Administration Gabapentin 100 mg 02/07/21 19:30 02/08/21 02:47 Gabapentin 100 Mg Capsule PO 100 mg Q6H MIKE Administration Gabapentin 100 mg 02/08/21 09:00 02/10/21 12:56 Gabapentin 100 Mg Capsule PO 100 mg QID MIKE Administration Sodium Chloride 1,000 mls @ 1,000 mls/hr 02/07/21 15:20 02/07/21 15:43 Sodium Chloride IV 02/07/21 16:19 1,000 mls/hr BOLUS STA Administration CEFTRIAXONE/D5W 1 GM PREMIX 1 gm in 50 mls @ 75 mls/hr 02/07/21 19:30 02/07/21 20:43 Rocephin 1 Gm/50 Ml D5w IV 02/10/21 19:29 75 mls/hr DAILY MIKE Administration CEFTRIAXONE/D5W 1 GM PREMIX 1 gm in 50 mls @ 75 mls/hr 02/08/21 21:00 02/09/21 20:52 Rocephin 1 Gm/50 Ml D5w IV 02/10/21 19:29 75 mls/hr BEDTIME MIKE Administration Ketorolac Tromethamine 30 mg 02/07/21 16:01 02/07/21 16:09 Ketorolac Tromethamine 30 Mg/Ml Vial IVP 02/07/21 16:02 30 mg ONCE ONE Administration Lisinopril 20 mg 02/08/21 09:00 02/09/21 09:22 Lisinopril 10 Mg Tablet PO 20 mg DAILY MIKE Administration Lisinopril 10 mg 02/10/21 09:00 02/10/21 09:23 Lisinopril 10 Mg Tablet PO 10 mg DAILY MIKE Administration Morphine Sulfate 2 mg 02/07/21 19:05 02/10/21 07:38 Morphine Sulfate 2 Mg/Ml Syringe IVP 2 mg Q2-4H PRN Administration Severe Pain Multivitamins 1 tab 02/08/21 09:00 02/10/21 09:22 Multivitamin 1 Tab PO 1 tab DAILY MIKE Administration Ondansetron HCl 4 mg 02/07/21 15:28 02/07/21 15:43 Ondansetron Hcl/Pf 4 Mg/2 Ml Sdv IVP 02/07/21 15:29 4 mg ONCE STA Administration Ondansetron HCl 4 mg 02/07/21 18:59 02/10/21 14:38 Ondansetron Hcl/Pf 4 Mg/2 Ml Sdv IVP 4 mg Q4-6H PRN Administration nausea Pantoprazole Sodium 40 mg 02/08/21 06:30 02/08/21 06:10 Pantoprazole Sodium 40 Mg Tablet. PO 40 mg QDAC MIKE Administration Pantoprazole Sodium 40 mg 02/08/21 17:00 02/10/21 05:56 Pantoprazole Sodium 40 Mg Tablet. PO 40 mg BIDAC MIKE Administration Phytonadione 1.25 mg 02/09/21 13:52 02/09/21 14:08 Phytonadione 5 Mg Tablet PO 02/09/21 13:53 1.25 mg ONCE ONE Administration Fluticasone/Salmeterol 1 puff 02/07/21 19:30 02/07/21 21:10 Fluticasone/Salmeterol 250/50 Diskus IH Not Given BID MIKE Fluticasone/Salmeterol 1 puff 02/08/21 09:00 02/10/21 09:24 Fluticasone/Salmeterol 250/50 Diskus IH 1 puff BID MIKE Administration Sodium Chloride 1 syr 02/07/21 15:20 02/08/21 20:21 0.9% Sodium Chloride 10 Ml Disp.Syrin IVF 1 syr PRN PRN Administration To flush IV Sodium Chloride 1 syr 02/09/21 05:30 02/10/21 12:56 0.9% Sodium Chloride 10 Ml Disp.Syrin IVF 1 syr Q8HR MIKE Administration Sodium Polystyrene Sulfonate 25 gm 02/10/21 09:26 02/10/21 10:12 Sodium Polystyrene Sulfonate 15 Gm/60 Ml Btl PO 02/10/21 09:27 25 gm ONCE STA Administration Sotalol HCl 80 mg 02/07/21 21:00 02/10/21 09:23 Sotalol Hcl 80 Mg Tablet PO 80 mg BID MIKE Administration Zolpidem Tartrate 5 mg 02/07/21 19:10 02/07/21 20:48 Zolpidem Tartrate 5 Mg Tablet PO 02/07/21 19:11 5 mg ONCE ONE Administration Vital Signs: Temp Pulse Resp BP Pulse Ox 02/07/21 14:33 97.5 F L 87 18 112/75 95 Discharge Plan Discharge Patient Disposition: ADMITTED INPATIENT Discharge Problem: Liver metastases, Coagulation disorder ED Provider: URVASHI SANDERSON Condition: Good Physician Progress Note: [] Additional Comments Additional Comments: Widespread metastatic disease including liver lesions and carcinomatosis peritonei. There is retroperitoneal and mesenteric lymphadenopa thy. 2. The colon is poorly distended especially the right colon and the rectum, limiting evaluation by CT. Cannot exclude a rectal region mass. 3. There is a tiny umbilical hernia which has a short knuckle of small bowel within its sac. No evidence of strangulation. 4. Gallstones. 5. Atherosclerotic disease. 6. Colonic diverticulosis.
[2021-02-07] MEDS ORDERED: ZOFRAN 4 MG/2 ML IVP STA (15:28)
[2021-02-07 15:42] LABS: BASOPHILS % (AUTO) 0.2 % (0.0-3.0); EOSINOPHILS # (AUTO) 0.2 K/ul (0.0-0.7); HEMATOCRIT 33.4 % (37.0-47.0); HEMOGLOBIN 10.4 g/dl (12.0-16.0); IMMATURE GRANULOCYTE # (AUTO) 0.1 (0.0-1.0); IMMATURE GRANULOCYTE % (AUTO) 0.4 % (0.0-5.0); LYMPHOCYTES % (AUTO) 17.1 (10.0-50.0); MEAN CORPUSCULAR HEMOGLOBIN 24.5 pg (27.0-31.0); MEAN CORPUSCULAR HGB CONC 31.1 (31.8-35.4); MEAN CORPUSCULAR VOLUME 78.8 fl (81.0-99.0); MONOCYTES % (AUTO) 5.6 (0-10); NEUTROPHILS # (AUTO) 13.5 K/ul (2.0-6.9); NEUTROPHILS % (AUTO) 75.7 % (42.2-75.2); PLATELET COUNT 338 10^3/uL (140-440); RDW COEFFICIENT OF VARIATION 17.7 % (11.6-14.8); RED BLOOD COUNT 4.24 10^6/ul (4.20-5.40); WHITE BLOOD COUNT 17.77 K/ul (4.6-10.2)
[2021-02-07 15:57] LABS: ALANINE AMINOTRANSFERASE 16.8 U/L (0-35); ALBUMIN 3.42 g/dL (3.5-5.0); ALKALINE PHOSPHATASE 75.5 U/L (53-141); ASPARTATE AMINO TRANSFERASE 35.1 U/L (14-36); BILIRUBIN,TOTAL 0.61 mg/dL (0.2-1.3); BLOOD UREA NITROGEN 38.2 mg/dL (7-17); CALCIUM 8.95 mg/dL (8.4-10.2); CARBON DIOXIDE 27.2 mmol/L (22-30.0); CHLORIDE 97.7 mmol/L (98-107); CREATINE KINASE 56.9 U/L (30-135); CREATININE 1.45 mg/dL (0.60-1.30); GLUCOSE 141.8 mg/dL (74-106); LIPASE 30.4 U/L (23-300); MAGNESIUM 1.57 mg/dL (1.6-2.3); POTASSIUM 5.58 mmol/L (3.5-5.1); SODIUM 133.1 mmol/L (134.5-145); TOTAL PROTEIN 6.76 g/dL (6.3-8.2)
[2021-02-07] MEDS ORDERED: TORADOL IVP ONE (16:01)
--- NOTE | 2021-02-07 16:23 | CT ---
EXAM: CT chest without contrast. HISTORY: Back pain. Right cough. COMPARISON: 08/23/2018. TECHNIQUE: Multiple axial images of the chest were obtained without intravenous contrast. Images we re reformatted in the sagittal and coronal planes. FINDINGS: Left thoracic inlet/supraclavicular lymph node measuring 1.5 cm on axial image two. Poste rior mediastinal lymph node measures 1.1 cm short axis on axial image 9. Pretracheal lymph node geovanni ures 2.3 cm short axis on axial image 16. Prevascular lymph node measures 1.6 meters short axis on a xial image 16. Subcarinal lymph node measures 2.4 cm short axis on axial image 24. Hilar lymphadeno rory probably present although difficult to assess. The heart enlarged. Atherosclerotic calcifications present. Small moderate right and tiny left pleural effusions present. Numerous ground-glass opacities nodula r densities in both lungs. There is no pneumothorax. Limited images of the upper abdomen demonstrate multiple ill-defined low density hepatic lesions. Pe rihepatic ascites noted with general haziness of the omentum/peritoneum. Lymph nodes in the upper ab domen and retroperitoneum are incompletely imaged. Cholelithiasis noted. No osseous lesion identified. IMPRESSION: 1. Extensive mediastinal lymphadenopathy. Incomplete visualization of upper abdominal/retroperitone al lymphadenopathy. 2. Diffuse ground glass opacities and nodular densities which could be infectious, inflammatory or n eoplastic. 3. Small to moderate right pleural effusion and trace left pleural effusion. 4. Hepatic metastases. Possible omental/peritoneal carcinomatosis. All CT scans are performed using dose optimization techniques as appropriate to the performed exam an d include at least one of the following: Automated exposure control, adjustment of the mA and/or kV according t o size, and the use of iterative reconstruction technique.
--- NOTE | 2021-02-07 16:30 | CT ---
EXAM: CT ABDOMEN AND PELVIS HISTORY: Abdominal pain TECHNIQUE: CT abdomen and pelvis without intravenous contrast. Images were reconstructed using 5 mm section thickness. Reformations were prepared. COMPARISON: 08/23/2018 FINDINGS: Diagnostic limitations exist without including intravenous contrast enhanced images. The liver demon strates multiple ill-defined low attenuation lesions largest measuring about 3 cm. These lesions are most consistent with a metastatic process. Spleen is unremarkable. Multiple small gallstones are p resent. The gallbladder is relatively contracted. No pancreatic mass is seen. The adrenal glands a re within normal limits. There is moderate atherosclerotic disease. Enlarged periaortic lymph nodes are present measuring up to about 16 mm short axis. There are numerous tiny mesenteric lymph nodes. There is omental caking along the anterior abdomen. Stomach is unremarkable. There is moderate distal colon diverticulosis. The colon is poorly distend ed especially the right colon and the rectum. Cannot exclude a rectal region mass. A uterus is pres ent. Urinary bladder is within normal limits. No ascites. There is a tiny umbilical hernia which h as a short knuckle of small bowel within its sac. No evidence of strangulation. The bones are demin eralized. There is scoliosis and degenerative changes of the spine. No pneumoperitoneum. See also same day CT thorax report. IMPRESSION: 1. Widespread metastatic disease including liver lesions and carcinomatosis peritonei. There is ret roperitoneal and mesenteric lymphadenopathy. 2. The colon is poorly distended especially the right colon and the rectum, limiting evaluation by C T. Cannot exclude a rectal region mass. 3. There is a tiny umbilical hernia which has a short knuckle of small bowel within its sac. No karen dence of strangulation. 4. Gallstones. 5. Atherosclerotic disease. 6. Colonic diverticulosis. All CT scans are performed using dose optimization techniques as appropriate to the performed exam an d include at least one of the following: Automated exposure control, adjustment of the mA and/or kV according t o size, and the use of iterative reconstruction technique.
[2021-02-07 18:01] LABS: CORONAVIRUS 229E (PCR) NOT DETECTED (NOT DETECT); CORONAVIRUS HKU1 (PCR) NOT DETECTED (NOT DETECT); CORONAVIRUS NL63 (PCR) NOT DETECTED (NOT DETECT); CORONAVIRUS OC43 (PCR) NOT DETECTED (NOT DETECT); HUMAN METAPNEUMOVIRUS (PCR) NOT DETECTED (NOT DETECT); SARS_COV_2 (PCR) NOT DETECTED (NOT DETECT)
[2021-02-07 18:02] LABS: BORDETELLA PARAPERTUSSIS (PCR) NOT DETECTED (NOT DETECT); BORDETELLA PERTUSSIS (PCR) NOT DETECTED (NOT DETECT); CHLAMYDIA PNEUMONIAE (PCR) NOT DETECTED (NOT DETECT); HUMAN RHINOVIRUS/ENTEROV (PCR) NOT DETECTED (NOT DETECT); INFLUENZA B (PCR) NOT DETECTED (NOT DETECT); MYCOPLASMA PNEUMONIAE (PCR) NOT DETECTED (NOT DETECT); PARAINFLUENZA VIRUS 1 (PCR) NOT DETECTED (NOT DETECT); PARAINFLUENZA VIRUS 2 (PCR) NOT DETECTED (NOT DETECT); PARAINFLUENZA VIRUS 3 (PCR) NOT DETECTED (NOT DETECT); PARAINFLUENZA VIRUS 4 (PCR) NOT DETECTED (NOT DETECT); RESPIRATORY SYNCYTIAL V (PCR) NOT DETECTED (NOT DETECT)
[2021-02-07 18:51] LABS: ADENOVIRUS (PCR) NOT DETECTED (NOT DETECT)
[2021-02-07] MEDS ORDERED: TYLENOL PO PRN (19:07)
[2021-02-07] MEDS ORDERED: AMBIEN PO ONE (19:10)
[2021-02-07] MEDS ORDERED: ROCEPHIN 1 GM/50 ML D5W 1 GM/50 ML BAG IV SCH (19:30)
[2021-02-07] MEDS: ZOFRAN 4 MG/2 ML IVP PRN (20:42)
[2021-02-07] MEDS: BETAPACE PO SCH (20:42)
[2021-02-07] MEDS: ADVAIR 250-50 DISKUS IH SCH ×2 (20:44→21:10)
[2021-02-07] MEDS: NEURONTIN PO SCH (20:48)
[2021-02-07] MEDS: MORPHINE 2 MG/ML SYRINGE IVP PRN (21:11)
[2021-02-07 22:57] VITALS: BMI 26.3
[2021-02-08 01:23] LABS: BASOPHILS # (AUTO) 0.1 K/uL (0-0.2); BASOPHILS % (AUTO) 0.4 % (0.0-3.0); EOSINOPHILS # (AUTO) 0.2 K/ul (0.0-0.7); EOSINOPHILS % (AUTO) 1.7 % (0.0-7.0); HEMATOCRIT 29.4 % (37.0-47.0); HEMOGLOBIN 8.8 g/dl (12.0-16.0); IMMATURE GRANULOCYTE # (AUTO) 0.1 (0.0-1.0); IMMATURE GRANULOCYTE % (AUTO) 0.8 % (0.0-5.0); LYMPHOCYTES # (AUTO) 4.9 K/uL (0.60-3.4); LYMPHOCYTES % (AUTO) 37.4 (10.0-50.0); MEAN CORPUSCULAR HGB CONC 29.9 (31.8-35.4); MEAN CORPUSCULAR VOLUME 80.3 fl (81.0-99.0); MONOCYTES # (AUTO) 1.4 K/uL (0.4-2.0); MONOCYTES % (AUTO) 10.4 (0-10); NEUTROPHILS # (AUTO) 6.5 K/ul (2.0-6.9); NEUTROPHILS % (AUTO) 49.3 % (42.2-75.2); PLATELET COUNT 313 10^3/uL (140-440); RDW COEFFICIENT OF VARIATION 17.5 % (11.6-14.8); RED BLOOD COUNT 3.66 10^6/ul (4.20-5.40); WHITE BLOOD COUNT 13.18 K/ul (4.6-10.2)
[2021-02-08 01:24] LABS: ALANINE AMINOTRANSFERASE 13.2 U/L (0-35); ALKALINE PHOSPHATASE 55.7 U/L (53-141); ASPARTATE AMINO TRANSFERASE 36.2 U/L (14-36); BILIRUBIN,TOTAL 0.33 mg/dL (0.2-1.3); BLOOD UREA NITROGEN 40.6 mg/dL (7-17); CALCIUM 8.17 mg/dL (8.4-10.2); CARBON DIOXIDE 26.4 mmol/L (22-30.0); CHLORIDE 99.8 mmol/L (98-107); CREATININE 1.57 mg/dL (0.60-1.30); GLUCOSE 126.1 mg/dL (74-106); POTASSIUM 5.32 mmol/L (3.5-5.1); SODIUM 132.1 mmol/L (134.5-145); TOTAL PROTEIN 5.78 g/dL (6.3-8.2)
[2021-02-08 01:36] LABS: TROPONIN I < 0.012 ng/ml (0.0000-0.120)
[2021-02-08] MEDS: NEURONTIN PO SCH ×5 (02:47→20:21)
[2021-02-08] MEDS: MORPHINE 2 MG/ML SYRINGE IVP PRN ×3 (02:48→15:28)
[2021-02-08 05:31] LABS: PROTHROMBIN TIME 49.9 SEC (9.3-11.0)
[2021-02-08] MEDS ORDERED: PROTONIX PO SCH (06:30)
[2021-02-08] MEDS: LANOXIN PO SCH (09:45)
[2021-02-08] MEDS: MULTIVITAMIN TABLET PO SCH (09:46)
[2021-02-08] MEDS: BETAPACE PO SCH ×2 (09:46→20:21)
[2021-02-08] MEDS: ADVAIR 250-50 DISKUS IH SCH ×2 (09:51→20:21)
[2021-02-08] MEDS: ZESTRIL PO SCH (10:18)
[2021-02-08] MEDS: COLACE PO SCH ×2 (10:19→20:21)
--- NOTE | 2021-02-08 14:22 | CT ---
Exam: Head CT. Date: 02/08/2021. Comparison: 10/30/2015. HISTORY: Known hepatic and peritoneal metastases on CT scan performed 02/07/2021. TECHNIQUE: Helical scan of the brain was performed. FINDINGS: The calvarium is intact. There is mild mucoperiosteal thickening or fluid in the left maxi llary sinus. Remaining paranasal sinuses and mastoid air cells are clear. There is diffuse cerebral and cerebellar volume loss with benign bifrontal extra-axial fluid collecti ons. There is mild decreased attenuation in the periventricular white matter. No abnormal intra-axi al fluid, mass or mass effect is present. There is no midline shift or hydrocephalus. No large vess el infarct or hemorrhage is observed. There is a probable 0.6 x 0.4 cm meningioma off the left front al calvarium on axial image 20, but without contact of the left frontal lobe due to bifrontal cerebra l volume loss. Impression: No acute intracranial findings. Senescent changes with chronic microvascular disease. There are benign bifrontal extra-axial fluid collections, likely a consequence of diffuse cerebral vo lume loss. There is an incidental 0.6 x 0.4 cm meningioma. Consider followup study in 5 - 10 years to evaluate for growth. All CT scans are performed using dose optimization techniques as appropriate to the performed exam an d include at least one of the following: Automated exposure control, adjustment of the mA and/or kV according t o size, and the use of iterative reconstruction technique.
[2021-02-08] MEDS: PROTONIX PO SCH (17:06)
[2021-02-08] MEDS: XANAX PO PRN (17:35)
[2021-02-08] MEDS: ROCEPHIN 1 GM/50 ML D5W 1 GM/50 ML BAG IV SCH (20:21)
[2021-02-08 22:57] LABS: BILIRUBIN,URINE Negative (NEGATIVE); CLARITY,URINE Clear (CLEAR); COLOR,URINE Yellow (YELLOW); GLUCOSE, URINE (UA) Negative (NEGATIVE); KETONES,URINE Negative (NEGATIVE); LEUKOCYTE ESTERASE ,URINE Negative (NEGATIVE); NITRITE,URINE Negative (NEGATIVE); PROTEIN,URINE Negative (NEGATIVE); URINE, BLOOD Negative (NEGATIVE); UROBILINOGEN,URINE 0.2 (0.2)
[2021-02-09] MEDS: MORPHINE 2 MG/ML SYRINGE IVP PRN ×7 (04:58→22:59)
[2021-02-09 05:13] LABS: BASOPHILS % (AUTO) 0.3 % (0.0-3.0); EOSINOPHILS # (AUTO) 0.3 K/ul (0.0-0.7); EOSINOPHILS % (AUTO) 2.4 % (0.0-7.0); HEMATOCRIT 29.4 % (37.0-47.0); HEMOGLOBIN 8.8 g/dl (12.0-16.0); IMMATURE GRANULOCYTE % (AUTO) 0.3 % (0.0-5.0); LYMPHOCYTES # (AUTO) 4.2 K/uL (0.60-3.4); LYMPHOCYTES % (AUTO) 32.3 (10.0-50.0); MEAN CORPUSCULAR HEMOGLOBIN 24.3 pg (27.0-31.0); MEAN CORPUSCULAR HGB CONC 29.9 (31.8-35.4); MEAN CORPUSCULAR VOLUME 81.2 fl (81.0-99.0); MONOCYTES # (AUTO) 1.5 K/uL (0.4-2.0); MONOCYTES % (AUTO) 11.4 (0-10); NEUTROPHILS % (AUTO) 53.3 % (42.2-75.2); PLATELET COUNT 327 10^3/uL (140-440); RDW COEFFICIENT OF VARIATION 17.4 % (11.6-14.8); RED BLOOD COUNT 3.62 10^6/ul (4.20-5.40); WHITE BLOOD COUNT 13.08 K/ul (4.6-10.2)
[2021-02-09 05:27] LABS: ALANINE AMINOTRANSFERASE 12.6 U/L (0-35); ALBUMIN 2.9 g/dL (3.5-5.0); ALKALINE PHOSPHATASE 62.9 U/L (53-141); ASPARTATE AMINO TRANSFERASE 27.3 U/L (14-36); BILIRUBIN,TOTAL 0.23 mg/dL (0.2-1.3); CALCIUM 8.37 mg/dL (8.4-10.2); CARBON DIOXIDE 27.5 mmol/L (22-30.0); CHLORIDE 98.1 mmol/L (98-107); CREATININE 1.35 mg/dL (0.60-1.30); POTASSIUM 5.4 mmol/L (3.5-5.1); SODIUM 131.3 mmol/L (134.5-145); TOTAL PROTEIN 5.92 g/dL (6.3-8.2)
[2021-02-09] MEDS: PROTONIX PO SCH ×2 (05:48→16:14)
[2021-02-09] MEDS: COLACE PO SCH ×2 (09:21→20:20)
[2021-02-09] MEDS: BETAPACE PO SCH ×2 (09:21→20:20)
[2021-02-09] MEDS: NEURONTIN PO SCH ×4 (09:21→20:28)
[2021-02-09] MEDS: ZESTRIL PO SCH (09:22)
[2021-02-09] MEDS: LANOXIN PO SCH (09:22)
[2021-02-09] MEDS: MULTIVITAMIN TABLET PO SCH (09:22)
[2021-02-09] MEDS: ADVAIR 250-50 DISKUS IH SCH ×2 (09:23→20:20)
[2021-02-09] MEDS ORDERED: DECADRON IM ONE (12:43)
[2021-02-09] MEDS ORDERED: LASIX IVP ONE (12:43)
[2021-02-09] MEDS ORDERED: MEPHYTON PO ONE (13:52)
--- NOTE | 2021-02-09 14:44 | CT ---
EXAMINATION: CT THORACIC SPINE WITHOUT CONTRAST HISTORY: Severe back pain with metastatic disease TECHNIQUE: CT of the thoracic spine was performed according to standard protocol without intravenous contrast. Contrast Dose: None CT Dose Reduction Techniques Performed: Yes COMPARISON: CT thoracic spine 08/23/2018, chest CT 02/07/2021 FINDINGS: Alignment: Minimal dextrocurvature Bones: No acute fracture. No chronic compression deformity. Disk Spaces: Mild multilevel degenerative disc disease. Soft Tissues: Within normal limits. Limited chest and abdomen: No renal lesion. Aorta is normal in caliber. Lungs are clear. Right thyr oid nodule. Multiple enlarged mediastinal and hilar lymph nodes. Small right and trace left pleural effusions. Multiple pulmonary nodules, nodular opacities, and intralobular septal thickening. Degenerative changes: Central disc protrusions at T4-T5 and 09/1966 with mild spinal canal stenosis. Mild multilevel facet arthropathy. No significant neural foraminal stenosis. IMPRESSION: No compression fracture. No visualized osseous lesion. Multilevel degenerative changes of the thoracic spine. Findings of metastatic disease in the chest, better seen on chest CT of 02/07/2021. All CT scans are performed using dose optimization techniques as appropriate to the performed exam an d include at least one of the following: Automated exposure control, adjustment of the mA and/or kV according t o size, and the use of iterative reconstruction technique.
--- NOTE | 2021-02-09 15:43 | CT ---
EXAM: CT cervical spine without contrast. TECHNIQUE: Axial CT of the cervical spine was performed without contrast with coronal and sagittal r econstructions. HISTORY: Metastatic disease with back pain. COMPARISON: CT thoracic spine from today and CT abdomen pelvis from 02/07/2021. FINDINGS: There is extremely advanced degenerative change seen in the cervical spine. There is no compression fracture or acute subluxation. There is no acute bony effacement of the canal or neural foramina. B one mineral density demonstrates multifocal lucency. This is probably on the basis of osteoporosis. There is no soft tissue soft tissue mass identified. There are large disc osteophyte complexes at C 3-4, C5-6 and C6-7 causing severe spinal stenosis at these levels which is chronic. Upper lung hess demonstrate multiple foci of infiltrate and nodules probably on the basis of metast atic disease. There are no neck masses. There is advanced calcific atherosclerosis. No acute abnor mality seen in the visualized intracranial contents. IMPRESSION: 1. No evidence for significant neoplastic involvement of the cervical spine. There is no pathologic collapse or acute bony or visible soft tissue effacement of the canal or the neural foramina. If th e status of the canal is of concern then MRI would be required to completely evaluate. 2. Advanced degenerative changes as above. 3. Heterogeneous bone mineral density most likely on the basis of osteoporosis however diffuse osseo us metastatic disease could potentially have a similar appearance. All CT scans are performed using dose optimization techniques as appropriate to the performed exam an d include at least one of the following: Automated exposure control, adjustment of the mA and/or kV according t o size, and the use of iterative reconstruction technique.
[2021-02-09] MEDS: ROCEPHIN 1 GM/50 ML D5W 1 GM/50 ML BAG IV SCH (20:52)
[2021-02-10 05:02] LABS: BASOPHILS % (AUTO) 0.2 % (0.0-3.0); EOSINOPHILS % (AUTO) 0.1 % (0.0-7.0); HEMATOCRIT 28.9 % (37.0-47.0); HEMOGLOBIN 8.5 g/dl (12.0-16.0); IMMATURE GRANULOCYTE # (AUTO) 0.1 (0.0-1.0); IMMATURE GRANULOCYTE % (AUTO) 0.3 % (0.0-5.0); LYMPHOCYTES # (AUTO) 3.2 K/uL (0.60-3.4); LYMPHOCYTES % (AUTO) 22.1 (10.0-50.0); MEAN CORPUSCULAR HEMOGLOBIN 24.1 pg (27.0-31.0); MEAN CORPUSCULAR HGB CONC 29.4 (31.8-35.4); MEAN CORPUSCULAR VOLUME 81.9 fl (81.0-99.0); MONOCYTES # (AUTO) 1.1 K/uL (0.4-2.0); MONOCYTES % (AUTO) 7.4 (0-10); NEUTROPHILS # (AUTO) 10.2 K/ul (2.0-6.9); NEUTROPHILS % (AUTO) 69.9 % (42.2-75.2); PLATELET COUNT 336 10^3/uL (140-440); RDW COEFFICIENT OF VARIATION 17.3 % (11.6-14.8); RED BLOOD COUNT 3.53 10^6/ul (4.20-5.40); WHITE BLOOD COUNT 14.54 K/ul (4.6-10.2)
[2021-02-10] MEDS: MORPHINE 2 MG/ML SYRINGE IVP PRN ×2 (05:13→07:38)
[2021-02-10 05:16] LABS: ALANINE AMINOTRANSFERASE 11.7 U/L (0-35); ALBUMIN 2.94 g/dL (3.5-5.0); ALKALINE PHOSPHATASE 62.6 U/L (53-141); ASPARTATE AMINO TRANSFERASE 24.9 U/L (14-36); BILIRUBIN,TOTAL 0.24 mg/dL (0.2-1.3); BLOOD UREA NITROGEN 36.8 mg/dL (7-17); CALCIUM 8.51 mg/dL (8.4-10.2); CARBON DIOXIDE 29.1 mmol/L (22-30.0); CHLORIDE 97.4 mmol/L (98-107); CREATININE 1.34 mg/dL (0.60-1.30); GLUCOSE 103.9 mg/dL (74-106); SODIUM 130.9 mmol/L (134.5-145); TOTAL PROTEIN 6.05 g/dL (6.3-8.2)
[2021-02-10 05:22] LABS: POTASSIUM 5.94 mmol/L (3.5-5.1)
[2021-02-10] MEDS: PROTONIX PO SCH (05:56)
[2021-02-10] MEDS ORDERED: ZESTRIL PO SCH (09:00)
[2021-02-10] MEDS: MULTIVITAMIN TABLET PO SCH (09:22)
[2021-02-10] MEDS: COLACE PO SCH (09:22)
[2021-02-10] MEDS: XANAX PO PRN (09:23)
[2021-02-10] MEDS: BETAPACE PO SCH (09:23)
[2021-02-10] MEDS: NEURONTIN PO SCH ×2 (09:23→12:56)
[2021-02-10] MEDS: ADVAIR 250-50 DISKUS IH SCH (09:24)
[2021-02-10] MEDS ORDERED: KAYEXALATE SUSP PO STA (09:26)
--- NOTE | 2021-02-10 10:04 | PCM.PROG ---
Attending Provider: ATTENDING PROVIDER: Dr. JULIO FOX This patient is seen with Courtney Erickson, Nurse Practitioner. DATE OF SERVICE: 02/10/21 SUBJECTIVE: This 85 year old /WHITE F was hospitalized 02/07/21. The patient is resting comfortably. Still nauseous but able to eat. She is very adamant on going home to get her affairs in order. Reluctant to see Dr. Ward for referral. REVIEW OF SYSTEMS: CONSTITUTIONAL: No night sweats. Fatigue. No fever or chills. Weakness. HEENT: Eyes: No visual changes. No eye pain. No eye discharge. ENT: No runny nose. No epistaxis. No sinus pain. No odynophagia. No congestion. RESPIRATORY: No cough, no congestion. No hemoptysis. No shortness of breath. CARDIOVASCULAR: No angina symptoms. No CHF symptoms. No atypical chest pain for CAD. No palpitations. No orthopnea.. GASTROINTESTINAL: No abdominal pain. Nauseous. No diarrhea or constipation. No hematemesis. No hematochezia. GENITOURINARY: No urgency. No frequency. No dysuria. No hematuria. No obstructive symptoms. No discharge. No pain. No significant abnormal bleeding. MUSCULOSKELETAL: No musculoskeletal pain; no joint swelling. NEUROLOGICAL: Awake, alert, oriented to time, place and person. No headache. No neck pain. No syncope. No seizures. No dizziness. PSYCHIATRIC: Anxious. No depression. No suicidal thoughts. No homicidal thoughts. SKIN: No rash. No lesions. No wounds. ENDOCRINE: No unexplained weight loss. No weight gain. HEMATOLOGIC/LYMPHATIC: No anemia. No purpura. No petechiae. No prolonged or excessive bleeding. No palpable lymph nodes. PHYSICAL EXAMINATION: GENERAL: The patient is awake, alert and oriented, lying in bed in no distress. VITAL SIGNS: Temperature 97.7 F, Pulse 68, Respiratory Rate 16, BP 114/60, Pu lse Ox 98% HEENT: Head normocephalic, atraumatic. Eyes: Extraocular muscles are intact. Pupils are equal, round and reactive to light and accommodation. Ears: No lesions. Nose appeared normal. Throat: No exudate or erythema. NECK: Supple. No JVD, no carotid bruit. No lymphadenopathy or thyromegaly. LUNGS: Diminished breath sounds. Clear to auscultation. Percussion note normal. Chest symmetrical. HEART: S1, S2, no S3. Grade I murmurs Irregular heart rate. No murmurs. No cyanosis or clubbing. No ascites. Pulses: Dorsalis pedis and posterior tibial pulses +1 to +2 both sides. ABDOMEN: Soft. Non-tender. Bowel sounds active. No CVA tenderness. No mass felt. EXTREMITIES: No edema. Full range of motion of all extremities, equal. NEUROLOGIC: No focal deficit. Cranial nerves II through XII are grossly intact. No headache. No double vision. SKIN: Not dry. Intact. Turgor-normal. LYMPHATIC: No palpable lymph nodes/no lymphedema. MUSCULOSKELETAL: Normal joints with no swelling. Muscle tone is normal. LAB REVIEW: 02/10/21 04:40 02/10/21 04:40 02/10/21 04:40: Digoxin 1.78 02/10/21 04:40: Sodium 130.9 L, Potassium 5.94 H, Chloride 97.4 L, Carbon Dioxide 29.1, Anion Gap 10.34, BUN 36.8 H, Creatinine 1.34 H, Estimated GFR (MDRD) 38.00, BUN/Creatinine Ratio 27.46, Glucose 103.9, Calcium 8.51, Total Bilirubin 0.24, AST 24.9, ALT 11.7, Alkaline Phosphatase 62.6, Total Protein 6.05 L, Albumin 2.94 L, Globulin 3.11, Albumin/Globulin Ratio 0.94 02/10/21 04:40: PT 42.0 H D, INR 3.91 H 02/10/21 04:40: WBC 14.54 H, RBC 3.53 L, Hgb 8.5 L, Hct 28.9 L, MCV 81.9, MCH 24.1 L, MCHC 29.4 L, RDW Coeff of [place] 17.3 H, Plt Count 336, Immature Gran % (Auto) 0.3, Neut % (Auto) 69.9, Lymph % (Auto) 22.1, [place] % (Auto) 7.4, Eos % (Auto) 0.1, Baso % (Auto) 0.2, Neut # (Auto) 10.2 H, Lymph # (Auto) 3.2, [place] # (Auto) 1.1, Eos # (Auto) 0.0, Baso # (Auto) 0.0, Immature Gran # (Auto) 0.1 ASSESSMENT: Please see below. 1. 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 Acute nausea and vomiting 3. Anemia 4. Hyponatremia 5. Hyperkalemia PLAN: 1. Continue with no Coumadin 2. Again the patient is adamant about going home today but agrees to see Dr. Ward, will refer 3. Hospice referral likely in near future. Plan and coordination of the patient's care discussed in the presence of Layout Man and nurse. SCRIBED BY: Olimpia ANTOINE scribed while in presence of service performed by Dr. Fox/Courtney Erickson APRN on 02/10/21 ([id number])
--- NOTE | 2021-02-10 11:44 | CM.DICTOOL ---
ADMISSION: 02/07/21 19:19 DISCHARGE: FEBRUARY 10, 2021 DATE OF SERVICE: 02/10/21 CODE STATUS: DO NOT INTUBATE, CPR ONLY FINAL DIAGNOSIS [id number] LIKELY EXTENSIVE LIVER AND PERITONEAL METASTASIS ACUTE NAUSEA AND VOMITING ACUTE GASTRITIS ANEMIA,CHRONIC HYPONATREMIA HYPERKALEMIA COAGULOPATHY FROM LIVER METS HX: BLOOD IN STOOL - LIKELY HEMORRHOIDAL HYPERCOAGULOPATHY CHRONIC ANEMIA CVA ATRIAL FIBRILLATION- ON COUMADIN HYPERTENSION DYSLIPIDEMIA ASTHMA DIABETES MELLITUS, TYPE 2 GERD GOUT OSTEOARTHRITIS DEGENERATIVE DISC DISEASE, LUMBAR CHRONIC BACK PAIN NEUROPATHY NONCOMPLIANCE WITH DIET, MEDICATIONS, AND FOLLOW-UP SURGICAL: CATARACT EXTRACTION LAST VITALS Temp Pulse Resp BP Pulse Ox 97.7 F 68 16 114/60 98 02/10/21 05:03 02/10/21 05:03 02/10/21 05:03 02/10/21 05:03 02/10/21 05:43 TAKE THESE MEDICATIONS AT HOME Alprazolam (Alprazolam 0.25 Mg Tablet) 0.25 - 0.5 mg PO QID PRN -- NEW PRN Reason: Anxiety Last Admin: 02/10/21 09:23 Dose: 0.25 mg Documented by: Docusate Sodium (Docusate Sodium 100 Mg Capsule) 100 mg PO BID [facility] Last Admin: 02/10/21 09:22 Dose: 100 mg Documented by: Gabapentin (Gabapentin 100 Mg Capsule) 100 mg PO QID [facility] Last Admin: 02/10/21 09:23 Dose: 100 mg Documented by: Lisinopril (Lisinopril 10 Mg Tablet) 10 mg PO DAILY [facility] Last Admin: 02/10/21 09:23 Dose: 10 mg Documented by: Morphine Sulfate ER 15 MG PO BID PRN -- NEW PRN Reason: Severe Pain Last Admin: 02/10/21 07:38 Dose: 2 mg Documented by: Multivitamins (Multivitamin 1 Tab) 1 tab PO DAILY [facility] Last Admin: 02/10/21 09:22 Dose: 1 tab Documented by: Ondansetron HCl 4 MG ODT PO Q 6 HOURS PRN -- NEW PRN Reason: nausea Last Admin: 02/07/21 20:42 Dose: 4 mg Documented by: Pantoprazole Sodium (Pantoprazole Sodium 40 Mg Tablet.Dr) 40 mg PO QDAC Last Admin: 02/10/21 05:56 Dose: 40 mg Documented by: Fluticasone/Salmeterol (Fluticasone/Salmeterol 250/50 Diskus) 1 puff IH BID [facility] Last Admin: 02/10/21 09:24 Dose: 1 puff Documented by: Sotalol HCl (Sotalol Hcl 80 Mg Tablet) 80 mg PO BID [facility] Last Admin: 02/10/21 09:23 Dose: 80 mg Documented by: CYCLOBENZAPRINE 10 MG PO BID PRN KAYEXALATE 25 GRAMS PO TODAY ( AT HOSPITAL) X ONE TOMORROW 02/11/2021, AT HOME -- NEW ALLERGIES No Known Allergies Allergy (Verified 02/07/21 14:41) DISCONTINUED MEDICATIONS NO POTASSIUM NO DIGOXIN NO COUMADIN NEW PRESCRIPTIONS: MORPHINE SULFATE ER 15 MG PO BID PRN XANAX 0.25 TO .5 MG QID PRN ZOFRAN 4 MOG ODT PO EVERY 6 HOURS PRN KAYEXALATE 25 GRAMS PO ONE MORE DOSE AT HOME ON 02/11/2021 DOCUSATE SODIUM 100 MG PO BID SMOKING: N/A DISEASE SPECIFIC EDUCATION: METASTATIC DISEASE NAUSEA PAIN COVID ABNORMAL ELECTROLYTES FALL PRECAUTIONS BLEEDING PRECAUTIONS OXYGEN PRECAUTIONS LAB REVIEW: 02/10/21 04:40 02/10/21 04:40 02/10/21 04:40: Digoxin 1.78 02/10/21 04:40: Sodium 130.9 L, Potassium 5.94 H, Chloride 97.4 L, Carbon Dioxide 29.1, Anion Gap 10.34, BUN 36.8 H, Creatinine 1.34 H, Estimated GFR (MDRD) 38.00, BUN/Creatinine Ratio 27.46, Glucose 103.9, Calcium 8.51, Total Bilirubin 0.24, AST 24.9, ALT 11.7, Alkaline Phosphatase 62.6, Total Protein 6.05 L, Albumin 2.94 L, Globulin 3.11, Albumin/Globulin Ratio 0.94 02/10/21 04:40: PT 42.0 H D, INR 3.91 H 02/10/21 04:40: WBC 14.54 H, RBC 3.53 L, Hgb 8.5 L, Hct 28.9 L, MCV 81.9, MCH 24.1 L, MCHC 29.4 L, RDW Coeff of [place] 17.3 H, Plt Count 336, Immature Gran % (Auto) 0.3, Neut % (Auto) 69.9, Lymph % (Auto) 22.1, [place] % (Auto) 7.4, Eos % (Auto) 0.1, Baso % (Auto) 0.2, Neut # (Auto) 10.2 H, Lymph # (Auto) 3.2, [place] # (Auto) 1.1, Eos # (Auto) 0.0, Baso # (Auto) 0.0, Immature Gran # (Auto) 0.1 PLAN: DISCHARGE : HOME TODAY, FEBRUARY 10, 2021, DTR TO STAY WITH HER ACTIVITY: UP TOLERATED WITH ROLLATOR, WITH FREQUENT REST PERIODS NO STRENUOUS ACTIVITY FALL PRECAUTIONS BLEEDING PRECAUTIONS PANDEMIC PRECAUTIONS DIET: REGULAR WITH ADEQUATE FLUIDS FOLLOW UP: SEE DR. PORRAS/ JOELLE MANNING APRN/ SERENA CASTRO APRN IN THE OFFICE ON THIS WEDNESDAY, FEBRUARY 13, 2021 @ [address] CHENTE HARRIS( HEMATOLOGY/ONCOLOGY) REFERRAL SENT AND WILL CONTACT WITH APPOINTMENT. PHONE # [phone] HOME OXYGEN: 2 LITERS A MINUTE PER NASAL CANNULA CONTINUOUS OXYGEN PRECAUTIONS CODE STATUS: DO NOT INTUBATE, CPR ONLY MRS NATHAN IS ALERT AND ORIENTED X 4. SHE REMAINS PLEASANT. SHE IS SHORT OF BREATH AT REST AND WITH EXERTION. QUALIFIES FOR HOME O2. SHE HAS BEEN HAVING PAIN TO HER BACK, ABD AND RT SIDE. MORPHINE HAS BEEN EFFECTIVE. SKIN WARM AND DRY AND INTACT. POOR APPETITE AND EATS THINGS BROUGHT IN BY FAMILY. SHE IS UP WITH WALKER AND SBA. USES A ROLLATOR AT HOME. SHE IS CONTINENT OF BOWEL AND BLADDER. SHE DRIBBLES SOME AND USES DEPENDS. HER DTR GYPSY IS GOING TO STAY WITH HER AT HER HOME. MD JOELLE ALCARAZ APRN ALYCE HANNAN, APRN
[2021-02-10 14:18] VITALS: BP 113/66; TEMP 97.6
[2021-02-10] MEDS: ZOFRAN 4 MG/2 ML IVP PRN (14:38)
--- NOTE | 2021-02-11 10:10 | ECHO2D ---
Date of Exam: 02/09/2021 Ordering Physician: DR. JULIO PORRAS Room #: [id number] Reason for Echo: SHORT OF AIR M-Mode Normal Adult Results LV Dimensions Normal Adult Results AoV Opening excursions >1.6 >1.6 LVEDD-base- 3.5-5.8 4.9 Ao root dimensions 2.0-3.7 2.6 LVESD-base- 3.1-4.6 L. Atrium dimensions 1.9-3.8 6.7 Post. Wall thickness 0.8-1.1 1.2 IV septum (thickness) 0.7-1.2 1.2 Post. Wall excursion 0.72-1.3 NORMAL Septal motion NORMAL Systolic motion R. Ventricular cavity 1.5-2.0 4.0 LVEF 60% 70% Paradoxical septal wall motion NORMAL 2-D : MARKEDLY ENLARGED LEFT ATRIAL CAVITY, ENLARGED RIGHT VENTRICLE CAVITY, CALCIFIC MITRAL VALVE ANNULUS, NORMAL TRICUSPID VALVE, AORTIC VALVE, NO EFFUSION, NO THROMBUS, NORMAL LEFT VENTRICLE CONTRACTILITY AND LEFT VENTRICLE SIZE M-MODE: MV: CALCIFIC MITRAL VALVE ANNULUS AV: NORMAL TV: NORMAL PV: CHAMBER SIZE: ENLARGED LEFT ATRIAL AND RIGHT VENTRICLE CAVITIES WALL MOTION: NORMAL PERICARDIUM: NORMAL INTERPRETATION: 1. LEFT VENTRICLE HYPERTROPHY WITH MARKEDLY ENLARGED LEFT ATRIAL CAVITY 2. ENLARGED RIGHT VENTRICLE CAVITY 3. CALCIFIC MITRAL VALVE ANNULUS 4. NORMAL LEFT VENTRICLE CONTRACTILITY AND LEFT VENTRICLE SIZE MTDD
--- NOTE | 2021-02-11 11:53 | HP ---
DATE OF SERVICE: 02/07/21 REASON FOR HOSPITALIZATION/HISTORY OF PRESENT ILLNESS: The patient came in through the emergency room 02/07/21 complaining of right- sided back pain with recurrent nausea and vomiting. She was unable to keep any liquids or food down. PAST MEDICAL HISTORY: Blood in stool likely hemorrhoidal which she was hospitalized about two weeks ago with hypercoagulation. Chronic anemia History of CVA Atrial fibrillation on Coumadin Hypertension Dyslipidemia Asthma Diabetes mellitus type 2 GERD GOUT Polyarthritis Lumbar degenerative disk disease Chronic back pain Neuropathy Noncompliance with diet, medications and followup PAST SURGICAL HISTORY: Bilateral cataract extraction REVIEW OF SYSTEMS: CONSTITUTIONAL: Generalized weakness, fatigue. No night sweats. No malaise, lethargy. No fever or chills. HEENT: Eyes: No visual changes. No eye pain. No eye discharge. ENT: No runny nose. No epistaxis. No sinus pain. No sore throat. No odynophagia. No ear pain. No congestion. RESPIRATORY: No cough, no congestion. No hemoptysis. No shortness of breath. CARDIOVASCULAR: No angina symptoms. No CHF symptoms. No atypical chest pain for CAD. No palpitations. No PND. No orthopnea. GASTROINTESTINAL: No abdominal pain. Positive for nausea or vomiting. No diarrhea or constipation. No hematemesis. No hematochezia. GENITOURINARY: No urgency. No frequency. No dysuria. No hematuria. No obstructive symptoms. No discharge. No pain. No significant abnormal bleeding. MUSCULOSKELETAL: Back pain. NEUROLOGICAL: No headache. No neck pain. No syncope. No seizures. No dizziness. PSYCHIATRIC: Not anxious. No depression. No suicidal thoughts. No homicidal thoughts. SKIN: No rash. No lesions. No wounds. ENDOCRINE: No unexplained weight loss. No weight gain. HEMATOLOGIC/LYMPHATIC: No anemia. No purpura. No petechiae. No prolonged or excessive bleeding. No palpable lymph nodes. PERSONAL/FAMILY/SOCIAL HISTORY: She is . She currently lives at home by herself. Nonsmoker. No alcohol or ilicit drug use. MEDICATIONS: Gabapentin 100 mg p.o. q.6hr Digoxin 125 mcg p.o. daily Pantoprazole 40 mg p.o. q.d a.c. Vitamin A-Vitamin E-Wssbej-Hkqp-Copper one each p.o. daily Lisinopril 20 mg p.o. daily Fluticasone propion-Salmeterol 250-50 mcg/dose Blister with device one INH inhalation b.i.d. Cyclobenzaprine 10 mg p.o. b.i.d. p.r.n. Sotalol 80 mg p.o. b.i.d. Warfarin 3 mg p.o. daily ALLERGIES: NKDA PHYSICAL EXAMINATION: GENERAL: Alert and oriented. Pallor positive. VITAL SIGNS: Temperature 97.5, heart rate 87, respirations 18, blood pressure 112/75, pulse ox 95%. HEENT: Head normocephalic, atraumatic. Eyes: Extraocular muscles are intact. Pupils are equal, round and reactive to light and accommodation. Ears: No lesions. Nose appeared normal. Throat: No exudate or erythema. NECK: Supple. No JVD, no carotid bruit. No lymphadenopathy or thyromegaly. LUNGS: Diminished breath sounds. Clear to auscultation. Percussion note normal. Chest symmetrical. HEART: S1, S2, no S3. No murmur. No cyanosis or clubbing. No ascites. Pulses: Dorsalis pedis and posterior tibial pulses +1 to +2 bilaterally. ABDOMEN: Soft. Nontender. Bowel sounds active. No CVA tenderness. No mass felt. EXTREMITIES: No edema. Full range of motion of all extremities, equal. NEUROLOGIC: No focal deficit. Cranial nerves II through XII are grossly intact. No headache, no double vision or headache. SKIN: Not dry. Intact. Turgor - normal. LYMPHATIC: No palpable lymph nodes/no lymphedema. MUSCULOSKELETAL: Normal joints with no swelling. Muscle tone is normal. LAB/IMAGING: White count 17.77, hemoglobin 10.4, hematocrit 33.4, platelets 338. Sodium 133, potassium 5.58, BUN 38, creatinine 1.45, glucose 141. INR 4.09. AST 35, ALT 16, alkaline phos 75. Respiratory panel by PCR is negative. CT of the abdomen and pelvis shows widespread metastatic disease including liver lesions and carcinomatosis of the peritonei. There is retroperitoneal and mesenteric lymphadenopathy. Colon is poorly distended especially in the right and the rectum, cannot exclude a rectal region mass. CT of the chest shows extensive mediastinal lymphadenopathy, diffuse ground glass opacities and nodular densities which could be infectious, inflammatory or neoplastic. Small to moderate right pleural effusion, trace left pleural effusion, hepatic metastasis. ASSESSMENT: 1. Intrathoracic lymphadenopathy with metastatic lesions to the liver and the peritoneum, etiology unknown. 2. Acute gastritis with nausea and vomiting. 3. Hypercoagulopathy, rule out lymphoma, breast cancer, GI malignancy. 4. Atrial fibrillation. 5. Dehydration. PLAN: 1. We will admit. 2. Routine telemetry orders. 3. CBC, CMP daily. 4. Digoxin level. 5. Hold Coumadin. 6. Daily INR. 7. CT of the brain with and without tomorrow. 8. Zofran 4 mg IV q.6 for nausea. 9. Normal Saline IV @ 75 cc/hr. 10. Morphine 2 mg IV q.4hr p.r.n. 11. Continue other home medications. 12. Will follow closely. TIME SPENT: More than 70 minutes. MTDD
--- NOTE | 2021-02-11 13:26 | DS ---
DATE OF SERVICE: 02/10/21 CODE STATUS: DO NOT INTUBATE, CPR ONLY FINAL DIAGNOSIS: 1. [id number] LIKELY 2. EXTENSIVE LIVER AND PERITONEAL METASTASIS 3. ACUTE NAUSEA AND VOMITING 4. ACUTE GASTRITIS 5. ANEMIA,CHRONIC 6. HYPONATREMIA 7. HYPERKALEMIA 8. COAGULOPATHY FROM LIVER METS HX: 9. BLOOD IN STOOL - LIKELY HEMORRHOIDAL 10. HYPERCOAGULOPATHY 11. CHRONIC ANEMIA 12. CVA 13. ATRIAL FIBRILLATION- ON COUMADIN 14. HYPERTENSION 15. DYSLIPIDEMIA 16. ASTHMA 17. DIABETES MELLITUS, TYPE 2 18. GERD 19. GOUT 20. OSTEOARTHRITIS 21. DEGENERATIVE DISC DISEASE, LUMBAR 22. CHRONIC BACK PAIN 23. NEUROPATHY 24. NONCOMPLIANCE WITH DIET, MEDICATIONS, AND FOLLOW-UP SURGICAL: 25. CATARACT EXTRACTION LAST VITALS Temp Pulse Resp BP Pulse Ox 97.7 F 68 16 114/60 98 02/10/21 05:03 02/10/21 05:03 02/10/21 05:03 02/10/21 05:03 02/10/21 05:43 DISCHARGE INSTRUCTIONS: 1. HOME TODAY, FEBRUARY 10, 2021, DTR TO STAY WITH HER. 2. MD FOLLOW UP: SEE DR. PORRAS/JOELLE MANNING APRN/SERENA CASTRO APRN IN THE OFFICE ON THIS SATURDAY, FEBRUARY 13, 2021 @ [address] CHENTE WARD(HEMATOLOGY/ONCOLOGY) REFERRAL SENT AND WILL CONTACT WITH APPOINTMENT. PHONE # [phone]. 3. HOME OXYGEN: 2 LITERS A MINUTE PER NASAL CANNULA CONTINUOUS OXYGEN PRECAUTIONS MEDICATIONS AT DISCHARGE: Alprazolam (Alprazolam 0.25 Mg Tablet) 0.25 - 0.5 mg PO QID PRN -- NEW PRN Reason: Anxiety Last Admin: 02/10/21 09:23 Dose: 0.25 mg Documented by: Docusate Sodium (Docusate Sodium 100 Mg Capsule) 100 mg PO BID [facility] Last Admin: 02/10/21 09:22 Dose: 100 mg Documented by: Gabapentin (Gabapentin 100 Mg Capsule) 100 mg PO QID [facility] Last Admin: 02/10/21 09:23 Dose: 100 mg Documented by: Lisinopril (Lisinopril 10 Mg Tablet) 10 mg PO DAILY [facility] Last Admin: 02/10/21 09:23 Dose: 10 mg Documented by: Morphine Sulfate ER 15 MG PO BID PRN -- NEW PRN Reason: Severe Pain Last Admin: 02/10/21 07:38 Dose: 2 mg Documented by: Multivitamins (Multivitamin 1 Tab) 1 tab PO DAILY [facility] Last Admin: 02/10/21 09:22 Dose: 1 tab Documented by: Ondansetron HCl 4 MG ODT PO Q 6 HOURS PRN -- NEW PRN Reason: nausea Last Admin: 02/07/21 20:42 Dose: 4 mg Documented by: Pantoprazole Sodium (Pantoprazole Sodium 40 Mg Tablet.Dr) 40 mg PO QDAC Last Admin: 02/10/21 05:56 Dose: 40 mg Documented by: Fluticasone/Salmeterol (Fluticasone/Salmeterol 250/50 Diskus) 1 puff IH BID [facility] Last Admin: 02/10/21 09:24 Dose: 1 puff Documented by: Sotalol HCl (Sotalol Hcl 80 Mg Tablet) 80 mg PO BID [facility] Last Admin: 02/10/21 09:23 Dose: 80 mg Documented by: CYCLOBENZAPRINE 10 MG PO BID PRN KAYEXALATE 25 GRAMS PO TODAY ( AT HOSPITAL) X ONE TOMORROW 02/11/2021, AT HOME -- NEW NEW PRESCRIPTIONS: MORPHINE SULFATE ER 15 MG PO BID PRN XANAX 0.25 TO .5 MG QID PRN ZOFRAN 4 MOG ODT PO EVERY 6 HOURS PRN KAYEXALATE 25 GRAMS PO ONE MORE DOSE AT HOME ON 02/11/2021 DOCUSATE SODIUM 100 MG PO BID DISCONTINUED MEDICATIONS: NO POTASSIUM NO DIGOXIN NO COUMADIN DIET INSTRUCTIONS: REGULAR WITH ADEQUATE FLUIDS ACTIVITY: UP TOLERATED WITH ROLLATOR, WITH FREQUENT REST PERIODS NO STRENUOUS ACTIVITY FALL PRECAUTIONS BLEEDING PRECAUTIONS PANDEMIC PRECAUTIONS SMOKING: N/A DISEASE SPECIFIC EDUCATION: METASTATIC DISEASE NAUSEA PAIN COVID ABNORMAL ELECTROLYTES FALL PRECAUTIONS BLEEDING PRECAUTIONS OXYGEN PRECAUTIONS HOSPITAL COURSE: This is an 85-year-old white female, who presented to the emergency room with back pain, nausea and vomiting. Per CT scan, she was found to show extensive liver metastasis with intrathoracic lymphadenopathy and peritoneal studding. We are thinking this could be lymphoma, breast cancer or GI malignancy. She was given Zofran, Normal Saline bolus, placed on fluids and started on Morphine for the back pain. CT of the brain was normal. CT of the chest showed that she had the peritoneal lymphadenopathy along with possible nodular opacities in the lungs that could be underlying metastasis. CT of the C-spine showed there is no significant neoplastic involvement in the C-spine but due to bone degeneration and heterogenous bone mineral density, it could be diffuse osseous metastatic disease. Initial INR was 4, this then went up to 9 on its own. She was given 1.25 Vitamin K. Today it is down to 3.9. Her Coumadin has been discontinued along with her Digoxin. Likely has hyperkalemia and hypercoagulopathy due to liver metastasis. Hemoglobin was down to 8.7 today, this is likely due to chronic disease and from some malignant process. The patient is very adamant about going home. She already wishes for palliative care and hospice referral although she has reluctantly agreed to see Dr. Ward for evaluation and followup. We had to fax information regarding this appointment with Dr. Ward and they are to contact her. She did qualify for home oxygen and will home on 2L via nasal cannula. She has a followup appointment with us on the . She will go home with Morphine Sulfate, extended release 15 mg p.o. b.i.d. p.r.n., Zofran 4 mg ODT q.6hr p.r.n. nausea. Potassium 5.9 today. She refused to stay any longer. We did Kayexalate 25 gm here in the hospital and then she will do another dose at home tomorrow. We will recheck her labs on in the office. Going home she is to take no potassium, no Digoxin, no Coumadin. Blood pressure has been stable. Her prognosis is poor. She understands along with her family the likely diagnosis of malignancy. We will followup with her closely in the office. TIME SPENT: More than 60 minutes. ANJANA
--- NOTE | 2021-02-12 08:26 | PN ---
DATE OF SERVICE: 02/07/21 SUBJECTIVE: 85-year-old white female was hospitalized through the emergency room because the patient was having vomiting with extreme weakness. The patient called the daughter and came to the office and she was advised to bring the patient to the emergency room where she was brought. The attending ordered CT scan of the abdomen and CT scan of the chest which revealed extensive lymphadenopathy in the chest and metastatic lesions of the peritoneum and liver. PHYSICAL EXAMINATION: GENERAL: The patient looked pale, dehydrated. She was oriented to time, place and person. HEENT: Head normocephalic, atraumatic. Eyes: Extraocular muscles are intact. Pupils are equal, round and reactive to light and accommodation. Ears: No lesions. Nose appeared normal. Throat: No exudate or erythema. NECK: Supple. No JVD, no carotid bruit. No lymphadenopathy or thyromegaly. LUNGS: Decreased breath sounds. Good air entry. Percussion note normal. Chest symmetrical. HEART: S1, S2, no S3. No murmurs. No cyanosis or clubbing. No ascites. Pulses: Dorsalis pedis and posterior tibial pulses +1 to +2 bilaterally. ABDOMEN: Soft. Nontender. Bowel sounds active. No CVA tenderness. No mass felt. EXTREMITIES: No edema. Full range of motion of all extremities, equal. NEUROLOGIC: No focal deficit. Cranial nerves II through XII are grossly intact. No headache. No double vision. SKIN: Dry. Intact. Turgor - normal. LYMPHATIC: No palpable lymph nodes/no lymphedema. MUSCULOSKELETAL: Normal joints with no swelling. Muscle tone is normal. LABS: Hemoglobin was 10 with hematocrit of 30. WBC count was slightly elevated. INR was close to 4. The patient's brother and daughter in the room. ASSESSMENT: 1. Generalized lymphadenopathy with metastatic lesions in the liver and peritoneum, could be lymphoma, mets. 2. The patient has nausea, vomiting and back pain. 3. Renal azotemia with dehydration. 4. History of atrial fibrillation. 5. Chronic anemia. PLAN: 1. Hospitalize the patient at [facility]. 2. Comfort measures with 2 to 3 mg of Morphine Sulfate 3 to 4 hourly for pain p.r.n. 3. Zofran for nausea. 4. IV fluids for fluid overload. 5. Hold Coumadin and the rest of the medications for now. The patient wants DNR. The patient doesn't want to be transferred to any other place. In fact, she wants to go home. The patient agreed to send all things to crankshaft straightener/oncologist by Wednesday for their opinion. The patient's family was explained along with the patient that malignancy has metastasized all over and poor prognosis at the present time considering advanced age. The main goal at the present time is comfort and treat immediate symptoms. The patient agreed. PROGNOSIS: Poor. TIME SPENT: More than 30 minutes. Plan and coordination of the patient's care discussed in the presence of nurse. ANJANA
--- NOTE | 2021-02-12 09:05 | PN ---
DATE OF SERVICE: 02/08/21 --- ADDENDUM ADDED SUBJECTIVE: 85-year-old white female hospitalized with nausea and vomiting. Further workup revealed that the patient has extensive lymphadenopathy in the thorax and has metastatic lesions in the liver and peritoneum. The patient's nausea and vomiting has subsided. She is feeling better. REVIEW OF SYSTEMS: CONSTITUTIONAL: The patient is feeling weak and tired. No night sweats. No fatigue, malaise, lethargy. No fever or chills. HEENT: Eyes: No visual changes. No eye pain. No eye discharge. ENT: No runny nose. No epistaxis. No sinus pain. No sore throat. No odynophagia. No congestion. RESPIRATORY: No cough, no congestion. No hemoptysis. No shortness of breath. CARDIOVASCULAR: No angina symptoms. No CHF symptoms. No atypical chest pain for CAD. No palpitations. No PND. No orthopnea. GASTROINTESTINAL: Appetite has improved. No abdominal pain. No nausea or vomiting at the present time. No diarrhea or constipation. No hematemesis. No hematochezia. GENITOURINARY: No urgency. No frequency. No dysuria. No hematuria. No obstructive symptoms. No discharge. No pain. No significant abnormal bleeding. MUSCULOSKELETAL: No musculoskeletal pain; no joint swelling. NEUROLOGICAL: No headache. No neck pain. No syncope. No seizures. No dizziness. PSYCHIATRIC: Not anxious. No depression. No suicidal thoughts. No homicidal thoughts. SKIN: No rash. No lesions. No wounds. ENDOCRINE: No unexplained weight loss. No weight gain. HEMATOLOGIC/LYMPHATIC: No anemia. No purpura. No petechiae. No prolonged or excessive bleeding. No palpable lymph nodes. PHYSICAL EXAMINATION: VITAL SIGNS: Temperature 97.2, pulse 82, respiratory rate 18, blood pressure 100/62, pulse ox 93%. HEENT: Head normocephalic, atraumatic. Eyes: Extraocular muscles are intact. Pupils are equal, round and reactive to light and accommodation. Ears: No lesions. Nose appeared normal. Throat: No exudate or erythema. NECK: Supple. No JVD, no carotid bruit. No lymphadenopathy or thyromegaly. LUNGS: Decreased breath sounds. Clear to auscultation. Percussion note normal. Chest symmetrical. HEART: S1, S2, no S3. No murmurs. No cyanosis or clubbing. No ascites. Pulses: Dorsalis pedis and posterior tibial pulses +1 to +2 bilaterally. ABDOMEN: Soft. Nontender. Bowel sounds active. No CVA tenderness. No mass felt. EXTREMITIES: No edema. Full range of motion of all extremities, equal. NEUROLOGIC: No focal deficit. Cranial nerves II through XII are grossly intact. No headache. No double vision. SKIN: Not dry. Intact. Turgor - normal. LYMPHATIC: No palpable lymph nodes/no lymphedema. MUSCULOSKELETAL: Normal joints with no swelling. Muscle tone is normal. LABS: Hemoglobin 8.8, hematocrit 29, WBC 13,000, normal differential. Creatinine 1.5, BUN 40, potassium 5.3. ASSESSMENT: 1. Acute gastritis seems to have resolved. 2. Generalized lymphadenopathy involving their structures with metastatic lesions to the liver and peritoneum. Primary cause unknown, could be lymphoma. 3. Atrial fibrillation. 4. Chronic anemia. 5. Chronic kidney disease, Stage 3/4. 6. Diabetes mellitus. PLAN: 1. CT scan of the head without contrast. 2. D/C Coumadin. Will also do LDH and CEA level. Again explained about the findings. She wants conservative treatment. She wants comfort measures but she has agreed for the records to be sent out to Dr. Ward. Further treatment, Hospice, discussed with the family and the brother is present in the room. CONDITION: Stable. PROGNOSIS: Poor. TIME SPENT: Full hour. Plan and coordination of the patient's care discussed in the presence of nurse. ADDENDUM: The patient's CT scan of the head was negative for metastasis. LDH and CEA level are pending. [facility]
--- NOTE | 2021-02-12 09:46 | PN ---
DATE OF SERVICE: 02/09/21 SUBJECTIVE: 85-year-old white female hospitalized with extensive metastatic disease involving liver and peritoneum with lymphadenopathy involving practically the entire thorax on the CT scan. The patient's initial complaints were nausea and vomiting which has subsided. She is eating. Appetite is fair. The patient has reluctantly agreed to have an opinion from oncologist, Dr. Ward. She wants to go home. 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 The patient is up and about. Mostly she wants comfort measures. Also wants hospice consultation as soon as they could. PHYSICAL EXAMINATION: VITAL SIGNS: Temperature 98.1, pulse 80, respiratory rate 18, blood pressure 114/60, pulse ox 95%. HEENT: Head normocephalic, atraumatic. Eyes: Extraocular muscles are intact. Pupils are equal, round and reactive to light and accommodation. Ears: No lesions. Nose appeared normal. Throat: No exudate or erythema. NECK: Supple. No JVD, no carotid bruit. No lymphadenopathy or thyromegaly. LUNGS: Decreased breath sounds but clear to auscultation. Percussion note normal. Chest symmetrical. HEART: S1, S2, no S3. No murmurs. No cyanosis or clubbing. No ascites. Pulses: Dorsalis pedis and posterior tibial pulses +1 to +2 bilaterally. ABDOMEN: Soft. Nontender. Bowel sounds active. No CVA tenderness. No mass felt. EXTREMITIES: No edema. Full range of motion of all extremities, equal. NEUROLOGIC: No focal deficit. Cranial nerves II through XII are grossly intact. No headache. No double vision. SKIN: Not dry. Intact. Turgor - normal. LYMPHATIC: No palpable lymph nodes/no lymphedema. MUSCULOSKELETAL: Normal joints with no swelling. Muscle tone is normal. LABS: Hemoglobin 8.8, hematocrit 29, WBC 13,000, normal differential. BUN and creatinine 1.3, BUN 36, potassium 5.4. ASSESSMENT: 1. Nausea, vomiting and gastritis seems to have resolved. 2. Generalized lymphadenopathy in the thoracic area with metastatic lesions in the liver and peritoneum. Looks more like lymphoma. 3. Atrial fibrillation. 4. Diabetes mellitus. PLAN: 1. Hold digoxin in the morning. Will do Dig level. 2. IV Lasix 20 mg. 3. The patient was mildly short of breath. 1/2 cc Decadron IM. 4. Continue the rest of the medications. PROGNOSIS: Poor. CONDITION: Stable. TIME SPENT: More than 30 minutes. Plan and coordination of the patient's care discussed in the presence of nurse. ANJANA
--- NOTE | 2021-02-12 09:58 | PN ---
DATE OF SERVICE: 02/10/21 SUBJECTIVE: The patient was seen and examined with the nurse practitioner. She was also examined separately later on. The patient's LDH level is normal. CEA is 22 which is mildly elevated. Considering the patient's lymphadenopathy, liver mets with peritoneal metastasis likely source primary could be breast, stomach. The patient had hyperkalemia which was treated, to be given Kayexalate 25 grams today and also tomorrow. The patient is scheduled for a mammogram on Wednesday. Questionable thickening of the right breast tissue could be from previous breast reduction. The patient will have an upper GI with barium to be done on Wednesday. The patient's reports have already been sent to Dr. Ward, who has agreed to see him at least once. 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 The patient was strongly advised to return in case the situation deteriorates with nausea and vomiting. TIME SPENT: More than 30 minutes. Plan and coordination of the patient's care discussed in the presence of nurse. ANJANA
--- NOTE | 2021-02-12 10:00 | PN ---
BILLING 02/07/21 ADMISSION DAY LEVEL 5 02/08/21 EXTENSIVE 02/09/21 EXTENSIVE 02/10/21 FINAL DAY D IN DISCHARGE MTDD
== END 2021-02-10 15:12 | disposition home or self-care (01) | DRG 392 ==
LOC: ED 14:32 → MEDSURG A 19:19
PROVIDERS: ADMIT Internal Medicine; ATTEND Internal Medicine
DX: E87.5 Hyperkalemia; K29.70 Gastritis, unspecified, without bleeding; E11.9 Type 2 diabetes mellitus without complications; E87.1 Hypo-osmolality and hyponatremia; I48.91 Unspecified atrial fibrillation; Z20.822 Contact with and (suspected) exposure to COVID-19; N18.30 Chronic kidney disease, stage 3 unspecified; D64.9 Anemia, unspecified; E86.0 Dehydration; R59.1 Generalized enlarged lymph nodes; D68.9 Coagulation defect, unspecified; M54.9 Dorsalgia, unspecified; R11.2 Nausea with vomiting, unspecified

== ENCOUNTER 2021-02-13 13:37 | Inpatient (IN) ==
[2021-02-13 14:04] LABS: BORDETELLA PARAPERTUSSIS (PCR) NOT DETECTED (NOT DETECT); BORDETELLA PERTUSSIS (PCR) NOT DETECTED (NOT DETECT); CHLAMYDIA PNEUMONIAE (PCR) NOT DETECTED (NOT DETECT); CORONAVIRUS 229E (PCR) NOT DETECTED (NOT DETECT); CORONAVIRUS HKU1 (PCR) NOT DETECTED (NOT DETECT); CORONAVIRUS NL63 (PCR) NOT DETECTED (NOT DETECT); CORONAVIRUS OC43 (PCR) NOT DETECTED (NOT DETECT); HUMAN METAPNEUMOVIRUS (PCR) NOT DETECTED (NOT DETECT); HUMAN RHINOVIRUS/ENTEROV (PCR) NOT DETECTED (NOT DETECT); INFLUENZA B (PCR) NOT DETECTED (NOT DETECT); MYCOPLASMA PNEUMONIAE (PCR) NOT DETECTED (NOT DETECT); PARAINFLUENZA VIRUS 1 (PCR) NOT DETECTED (NOT DETECT); PARAINFLUENZA VIRUS 2 (PCR) NOT DETECTED (NOT DETECT); PARAINFLUENZA VIRUS 3 (PCR) NOT DETECTED (NOT DETECT); PARAINFLUENZA VIRUS 4 (PCR) NOT DETECTED (NOT DETECT); RESPIRATORY SYNCYTIAL V (PCR) NOT DETECTED (NOT DETECT); SARS_COV_2 (PCR) NOT DETECTED (NOT DETECT)
[2021-02-13] MEDS ORDERED: TYLENOL PO PRN (14:34)
[2021-02-13] MEDS ORDERED: ATROPINE SULFATE PFS IVP PRN (14:34)
[2021-02-13] MEDS ORDERED: NITROSTAT SL PRN (14:34)
[2021-02-13 14:52] LABS: ADENOVIRUS (PCR) NOT DETECTED (NOT DETECT)
[2021-02-13 14:52] LABS: BASOPHILS % (AUTO) 0.3 % (0.0-3.0); EOSINOPHILS # (AUTO) 0.2 K/ul (0.0-0.7); EOSINOPHILS % (AUTO) 1.2 % (0.0-7.0); HEMOGLOBIN 9.2 g/dl (12.0-16.0); IMMATURE GRANULOCYTE # (AUTO) 0.1 (0.0-1.0); IMMATURE GRANULOCYTE % (AUTO) 0.5 % (0.0-5.0); LYMPHOCYTES # (AUTO) 3.7 K/uL (0.60-3.4); LYMPHOCYTES % (AUTO) 28.3 (10.0-50.0); MEAN CORPUSCULAR HEMOGLOBIN 24.3 pg (27.0-31.0); MEAN CORPUSCULAR HGB CONC 29.7 (31.8-35.4); MEAN CORPUSCULAR VOLUME 81.8 fl (81.0-99.0); MONOCYTES # (AUTO) 1.2 K/uL (0.4-2.0); MONOCYTES % (AUTO) 8.8 (0-10); NEUTROPHILS % (AUTO) 60.9 % (42.2-75.2); PLATELET COUNT 364 10^3/uL (140-440); RDW COEFFICIENT OF VARIATION 17.1 % (11.6-14.8); RED BLOOD COUNT 3.79 10^6/ul (4.20-5.40); WHITE BLOOD COUNT 13.13 K/ul (4.6-10.2)
[2021-02-13 14:53] VITALS: BMI 27.4
[2021-02-13 15:03] LABS: ALANINE AMINOTRANSFERASE 10.8 U/L (0-35); ALBUMIN 3.08 g/dL (3.5-5.0); ASPARTATE AMINO TRANSFERASE 34.5 U/L (14-36); BILIRUBIN,TOTAL 0.44 mg/dL (0.2-1.3); BLOOD UREA NITROGEN 56.6 mg/dL (7-17); CALCIUM 8.63 mg/dL (8.4-10.2); CARBON DIOXIDE 29.5 mmol/L (22-30.0); CREATININE 2.27 mg/dL (0.60-1.30); GLUCOSE 110.3 mg/dL (74-106); POTASSIUM 4.43 mmol/L (3.5-5.1); SODIUM 134.1 mmol/L (134.5-145); TOTAL PROTEIN 6.28 g/dL (6.3-8.2)
--- NOTE | 2021-02-13 15:09 | DI ---
EXAM: One view chest. HISTORY: Short of breath. COMPARISON: 01/26/2021 chest x-ray. FINDINGS: Interval increased interstitial markings compared to the prior study. There are stable pa tchy opacities throughout both lungs with blunting of the costophrenic angles, right greater than lef t. The cardiac silhouette is upper limits normal. There is no pneumothorax. No acute abnormality invol ving the osseous structures. IMPRESSION: Interval development of increased interstitial markings suggestive of pulmonary edema. Nonspecific bilateral pulmonary opacities which could represent pneumonia and/or developing mass. Th ere is a small bilateral pleural effusion.
[2021-02-13] MEDS ORDERED: FLEXERIL PO PRN (15:39)
[2021-02-13] MEDS ORDERED: ZOFRAN TAB PO PRN (15:39)
[2021-02-13] MEDS ORDERED: XANAX PO PRN (15:39)
[2021-02-13] MEDS ORDERED: LASIX IVP STA (16:58)
[2021-02-13] MEDS ORDERED: ZOFRAN 4 MG/2 ML IVP PRN (16:58)
[2021-02-13] MEDS: SODIUM CHLORIDE 1,000 ML IV SCH (17:36)
[2021-02-13 18:08] LABS: BILIRUBIN,URINE Negative (NEGATIVE); CLARITY,URINE Clear (CLEAR); COLOR,URINE Yellow (YELLOW); GLUCOSE, URINE (UA) Negative (NEGATIVE); KETONES,URINE Negative (NEGATIVE); LEUKOCYTE ESTERASE ,URINE Negative (NEGATIVE); NITRITE,URINE Negative (NEGATIVE); PROTEIN,URINE Negative (NEGATIVE); URINE, BLOOD Negative (NEGATIVE); UROBILINOGEN,URINE 0.2 (0.2)
[2021-02-13] MEDS: NEURONTIN PO SCH (18:59)
[2021-02-13] MEDS: BETAPACE PO SCH (20:40)
[2021-02-13] MEDS: ADVAIR 250-50 DISKUS IH SCH (20:40)
[2021-02-13] MEDS: ROCEPHIN 1 GM/50 ML D5W 1 GM/50 ML BAG IV SCH (20:41)
[2021-02-13] MEDS: COLACE PO SCH (20:46)
[2021-02-13] MEDS: SOLU-CORTEF 250 MG IVP SCH (20:57)
[2021-02-14] MEDS: NEURONTIN PO SCH ×4 (00:44→17:28)
[2021-02-14 05:12] LABS: BASOPHILS % (AUTO) 0.3 % (0.0-3.0); EOSINOPHILS % (AUTO) 0.1 % (0.0-7.0); HEMATOCRIT 28.7 % (37.0-47.0); HEMOGLOBIN 8.5 g/dl (12.0-16.0); IMMATURE GRANULOCYTE % (AUTO) 0.4 % (0.0-5.0); LYMPHOCYTES # (AUTO) 2.2 K/uL (0.60-3.4); LYMPHOCYTES % (AUTO) 20.4 (10.0-50.0); MEAN CORPUSCULAR HEMOGLOBIN 24.1 pg (27.0-31.0); MEAN CORPUSCULAR HGB CONC 29.6 (31.8-35.4); MEAN CORPUSCULAR VOLUME 81.3 fl (81.0-99.0); MONOCYTES # (AUTO) 0.2 K/uL (0.4-2.0); MONOCYTES % (AUTO) 1.6 (0-10); NEUTROPHILS # (AUTO) 8.3 K/ul (2.0-6.9); NEUTROPHILS % (AUTO) 77.2 % (42.2-75.2); PLATELET COUNT 358 10^3/uL (140-440); RDW COEFFICIENT OF VARIATION 17.3 % (11.6-14.8); RED BLOOD COUNT 3.53 10^6/ul (4.20-5.40); WHITE BLOOD COUNT 10.69 K/ul (4.6-10.2)
[2021-02-14 05:28] LABS: ALANINE AMINOTRANSFERASE 9.7 U/L (0-35); ALBUMIN 2.8 g/dL (3.5-5.0); ALKALINE PHOSPHATASE 61.4 U/L (53-141); ASPARTATE AMINO TRANSFERASE 26.4 U/L (14-36); BILIRUBIN,TOTAL 0.24 mg/dL (0.2-1.3); BLOOD UREA NITROGEN 56.4 mg/dL (7-17); CALCIUM 8.34 mg/dL (8.4-10.2); CHLORIDE 99.1 mmol/L (98-107); CREATININE 2.6 mg/dL (0.60-1.30); GLUCOSE 145.6 mg/dL (74-106); POTASSIUM 4.64 mmol/L (3.5-5.1); SODIUM 134.4 mmol/L (134.5-145); TOTAL PROTEIN 5.81 g/dL (6.3-8.2)
[2021-02-14] MEDS: SODIUM CHLORIDE 1,000 ML IV SCH ×2 (06:26→19:49)
[2021-02-14] MEDS: PROTONIX PO SCH (06:50)
[2021-02-14] MEDS: ZESTRIL PO SCH (09:16)
[2021-02-14] MEDS: BETAPACE PO SCH ×2 (09:38→21:03)
[2021-02-14] MEDS: COLACE PO SCH ×2 (09:38→21:03)
[2021-02-14] MEDS: ADVAIR 250-50 DISKUS IH SCH ×2 (09:41→21:03)
[2021-02-14] MEDS: SOLU-CORTEF 250 MG IVP SCH ×2 (09:41→21:12)
--- NOTE | 2021-02-14 09:49 | PCM.PROG ---
Attending Provider: ATTENDING PROVIDER: Dr. JULIO PORRAS DATE OF SERVICE: 02/14/21 SUBJECTIVE: This 85 year old /WHITE F was hospitalized 02/13/21 with dehydration, renal azotemia and extreme weakness. The patient's condition has improved. She is talking a lot better. She is oriented to time, place and person. No fever. No chills. Chest x-ray findings of CHF clinically does not match. The patient is going to be continued on IV fluids. Oral intake is improving. REVIEW OF SYSTEMS: CONSTITUTIONAL: No night sweats. No fatigue, malaise, lethargy. No fever or chills. HEENT: Eyes: No visual changes. No eye pain. No eye discharge. ENT: No runny nose. No epistaxis. No sinus pain. No odynophagia. No congestion. RESPIRATORY: No cough, no congestion. No hemoptysis. No shortness of breath. CARDIOVASCULAR: No angina symptoms. No CHF symptoms. No atypical chest pain for CAD. No palpitations. No orthopnea.. GASTROINTESTINAL: No abdominal pain. No nausea or vomiting. No diarrhea or constipation. No hematemesis. No hematochezia. GENITOURINARY: No urgency. No frequency. No dysuria. No hematuria. No obstructive symptoms. No discharge. No pain. No significant abnormal bleeding. MUSCULOSKELETAL: No musculoskeletal pain; no joint swelling. NEUROLOGICAL: Awake, alert, oriented to time, place and person. No headache. No neck pain. No syncope. No seizures. No dizziness. PSYCHIATRIC: Not anxious. No depression. No suicidal thoughts. No homicidal thoughts. SKIN: No rash. No lesions. No wounds. ENDOCRINE: No unexplained weight loss. No weight gain. HEMATOLOGIC/LYMPHATIC: No anemia. No purpura. No petechiae. No prolonged or excessive bleeding. No palpable lymph nodes. PHYSICAL EXAMINATION: GENERAL: The patient is awake, alert and oriented, lying in bed in no distress. VITAL SIGNS: Temperature 97.0 F, Pulse 76, Respiratory Rate 16, BP 84/58, Pulse Ox 96% HEENT: Head normocephalic, atraumatic. Eyes: Extraocular muscles are intact. Pupils are equal, round and reactive to light and accommodation. Ears: No lesions. Nose appeared normal. Throat: No exudate or erythema. NECK: Supple. No JVD, no carotid bruit. No lymphadenopathy or thyromegaly. LUNGS: Decreased breath sounds. Clear to auscultation. Percussion note normal. Chest symmetrical. HEART: S1, S2, no S3. No murmurs. No cyanosis or clubbing. No ascites. Pulses: Dorsalis pedis and posterior tibial pulses +1 to +2 both sides. ABDOMEN: Soft. Non-tender. Bowel sounds active. No CVA tenderness. No mass felt. EXTREMITIES: No edema. Full range of motion of all extremities, equal. NEUROLOGIC: No focal deficit. Cranial nerves II through XII are grossly intact. No headache, no double vision or headache. SKIN: Warm and dry. Intact. Turgor-normal. LYMPHATIC: No palpable lymph nodes/no lymphedema. MUSCULOSKELETAL: Normal joints with no swelling. Muscle tone is normal. LAB REVIEW: 02/14/21 04:37 02/14/21 04:37 02/14/21 04:37: Sodium 134.4 L, Potassium 4.64, Chloride 99.1, Carbon Dioxide 28.0, Anion Gap 11.94, BUN 56.4 H, Creatinine 2.60 H, Estimated GFR (MDRD) 18.00, BUN/Creatinine Ratio 21.69, Glucose 145.6 H, Calcium 8.34 L, Total Bi lirubin 0.24, AST 26.4, ALT 9.7, Alkaline Phosphatase 61.4, Total Protein 5.81 L , Albumin 2.80 L, Globulin 3.01, Albumin/Globulin Ratio 0.93 02/14/21 04:37: WBC 10.69 H, RBC 3.53 L, Hgb 8.5 L, Hct 28.7 L, MCV 81.3, MCH 24.1 L, MCHC 29.6 L, RDW Coeff of [place] 17.3 H, Plt Count 358, Immature Gran % (Auto) 0.4, Neut % (Auto) 77.2 H, Lymph % (Auto) 20.4, [place] % (Auto) 1.6, Eos % (Auto) 0.1, Baso % (Auto) 0.3, Neut # (Auto) 8.3 H, Lymph # (Auto) 2.2, [place] # (Auto) 0.2 L, Eos # (Auto) 0.0, Baso # (Auto) 0.0, Immature Gran # (Auto) 0.0 02/13/21 17:35: Urine Color Yellow, Urine Clarity Clear, Urine pH 5.0, Ur Specific [place] >=1.030, Urine Protein Negative, Urine Glucose (UA) Negative, Urine Ketones Negative, Urine Blood Negative, Urine Nitrite Negative, Urine Bilirubin Negative, Urine Urobilinogen 0.2, Ur Leukocyte Esterase Negative 02/13/21 14:45: Sodium 134.1 L, Potassium 4.43, Chloride 97.0 L, Carbon Dioxide 29.5, Anion Gap 12.03, BUN 56.6 H, Creatinine 2.27 H, Estimated GFR (MDRD) 21.00, BUN/Creatinine Ratio 24.93, Glucose 110.3 H, Calcium 8.63, Total Bilirubin 0.44, AST 34.5, ALT 10.8, Alkaline Phosphatase 68.0, Total Protein 6.28 L, Albumin 3.08 L, Globulin 3.20, Albumin/Globulin Ratio 0.96 02/13/21 14:45: WBC 13.13 H, RBC 3.79 L, Hgb 9.2 L, Hct 31.0 L, MCV 81.8, MCH 2 4.3 L, MCHC 29.7 L, RDW Coeff of [place] 17.1 H, Plt Count 364, Immature Gran % (Auto) 0.5, Neut % (Auto) 60.9, Lymph % (Auto) 28.3, [place] % (Auto) 8.8, Eos % (Auto) 1.2, Baso % (Auto) 0.3, Neut # (Auto) 8.0 H, Lymph # (Auto) 3.7 H, [place] # (Auto) 1.2, Eos # (Auto) 0.2, Baso # (Auto) 0.0, Immature Gran # (Auto) 0.1 02/13/21 13:58: Adenovirus (PCR) Not detected, B. pertussis DNA (PCR) Not detected, B.parapertussis DNA PCR Not detected, C. pneumoniae DNA (PCR) Not de tected, Coronavirus OC43 (PCR) Not detected, Coronavirus HKU1 (PCR) Not detected, Coronavirus 229E (PCR) Not detected, Coronavirus NL63 (PCR) Not detected, Human Metapneumovir PCR Not detected, Influenza Type A (PCR) Not detected, Influenza B (RT-PCR) Not detected, M. pneumoniae (PCR) Not detected, Parainfluenza 1 (PCR) Not detected, Parainfluenza 2 (PCR) Not detected, Parainfluenza 3 (PCR) Not detected, Parainfluenza 4 (PCR) Not detected, RSV (PCR) Not detected, Entero/Rhino (PCR) Not detected, SARS-CoV-2 (PCR) Not detected ASSESSMENT: Please see below. 1. Renal azotemia 2. Dehydration 3. Chronic anemia 4. Metastasis liver and lung disease PLAN: 1. Give supportive measure 2. IV fluids 3. The patient refuses referral to office machine inspector/oncologist 4. Refuses to have mammogram, upper GI or any further testing. Plan and coordination of the patient's care discussed in the presence of Dye Lab Technician and nurse. CONDITION: Stable at present time PROGNOSIS: POOR SCRIBED BY: Olimpia ANTOINE scribed while in presence of service performed by Dr. JULIO PORRAS on 02/14/21 ([id number])
[2021-02-14] MEDS: MS CONTIN PO PRN (13:59)
[2021-02-14] MEDS: ROCEPHIN 1 GM/50 ML D5W 1 GM/50 ML BAG IV SCH (21:03)
[2021-02-14] MEDS: XANAX PO PRN (22:01)
[2021-02-15] MEDS: NEURONTIN PO SCH ×4 (00:47→17:43)
[2021-02-15 05:14] LABS: BASOPHILS % (AUTO) 0.1 % (0.0-3.0); HEMATOCRIT 28.5 % (37.0-47.0); HEMOGLOBIN 8.6 g/dl (12.0-16.0); IMMATURE GRANULOCYTE # (AUTO) 0.1 (0.0-1.0); IMMATURE GRANULOCYTE % (AUTO) 0.6 % (0.0-5.0); LYMPHOCYTES # (AUTO) 2.5 K/uL (0.60-3.4); LYMPHOCYTES % (AUTO) 17.7 (10.0-50.0); MEAN CORPUSCULAR HEMOGLOBIN 24.4 pg (27.0-31.0); MEAN CORPUSCULAR HGB CONC 30.2 (31.8-35.4); MONOCYTES # (AUTO) 0.5 K/uL (0.4-2.0); MONOCYTES % (AUTO) 3.4 (0-10); NEUTROPHILS # (AUTO) 11.1 K/ul (2.0-6.9); NEUTROPHILS % (AUTO) 78.2 % (42.2-75.2); PLATELET COUNT 367 10^3/uL (140-440); RDW COEFFICIENT OF VARIATION 17.3 % (11.6-14.8); RED BLOOD COUNT 3.52 10^6/ul (4.20-5.40); WHITE BLOOD COUNT 14.16 K/ul (4.6-10.2)
[2021-02-15 05:27] LABS: ALBUMIN 2.76 g/dL (3.5-5.0); ALKALINE PHOSPHATASE 57.9 U/L (53-141); BILIRUBIN,TOTAL 0.2 mg/dL (0.2-1.3); BLOOD UREA NITROGEN 59.6 mg/dL (7-17); CALCIUM 8.43 mg/dL (8.4-10.2); CARBON DIOXIDE 27.5 mmol/L (22-30.0); CHLORIDE 101.5 mmol/L (98-107); CREATININE 2.37 mg/dL (0.60-1.30); GLUCOSE 145.9 mg/dL (74-106); POTASSIUM 4.32 mmol/L (3.5-5.1); SODIUM 134.5 mmol/L (134.5-145); TOTAL PROTEIN 5.74 g/dL (6.3-8.2)
[2021-02-15] MEDS: PROTONIX PO SCH (05:44)
[2021-02-15] MEDS ORDERED: DECADRON IM ONE (09:00)
[2021-02-15] MEDS: BETAPACE PO SCH ×2 (09:28→20:25)
[2021-02-15] MEDS: ZESTRIL PO SCH (09:28)
[2021-02-15] MEDS: COLACE PO SCH ×2 (09:28→20:24)
[2021-02-15] MEDS: ADVAIR 250-50 DISKUS IH SCH ×2 (09:31→20:31)
[2021-02-15] MEDS: SOLU-CORTEF 250 MG IVP SCH ×2 (09:53→21:18)
[2021-02-15] MEDS: SODIUM CHLORIDE 1,000 ML IV SCH (10:24)
[2021-02-15] MEDS: ROCEPHIN 1 GM/50 ML D5W 1 GM/50 ML BAG IV SCH (20:33)
[2021-02-15] MEDS: MS CONTIN PO PRN (21:21)
[2021-02-16] MEDS: NEURONTIN PO SCH ×4 (04:23→18:13)
[2021-02-16] MEDS: XANAX PO PRN ×2 (04:53→20:27)
[2021-02-16] MEDS: SODIUM CHLORIDE 1,000 ML IV SCH ×3 (04:53→16:40)
[2021-02-16] MEDS: PROTONIX PO SCH (05:37)
[2021-02-16 05:40] LABS: BASOPHILS % (AUTO) 0.1 % (0.0-3.0); HEMATOCRIT 31.4 % (37.0-47.0); HEMOGLOBIN 9.6 g/dl (12.0-16.0); IMMATURE GRANULOCYTE # (AUTO) 0.1 (0.0-1.0); IMMATURE GRANULOCYTE % (AUTO) 0.7 % (0.0-5.0); LYMPHOCYTES # (AUTO) 2.4 K/uL (0.60-3.4); LYMPHOCYTES % (AUTO) 15.1 (10.0-50.0); MEAN CORPUSCULAR HEMOGLOBIN 24.6 pg (27.0-31.0); MEAN CORPUSCULAR HGB CONC 30.6 (31.8-35.4); MEAN CORPUSCULAR VOLUME 80.5 fl (81.0-99.0); MONOCYTES # (AUTO) 0.5 K/uL (0.4-2.0); MONOCYTES % (AUTO) 3.5 (0-10); NEUTROPHILS # (AUTO) 12.6 K/ul (2.0-6.9); NEUTROPHILS % (AUTO) 80.6 % (42.2-75.2); PLATELET COUNT 426 10^3/uL (140-440); RDW COEFFICIENT OF VARIATION 17.4 % (11.6-14.8); WHITE BLOOD COUNT 15.64 K/ul (4.6-10.2)
[2021-02-16 05:51] LABS: ALANINE AMINOTRANSFERASE 13.7 U/L (0-35); ALKALINE PHOSPHATASE 67.4 U/L (53-141); ASPARTATE AMINO TRANSFERASE 44.3 U/L (14-36); BILIRUBIN,TOTAL 0.27 mg/dL (0.2-1.3); BLOOD UREA NITROGEN 59.5 mg/dL (7-17); CALCIUM 8.76 mg/dL (8.4-10.2); CARBON DIOXIDE 26.3 mmol/L (22-30.0); CHLORIDE 102.8 mmol/L (98-107); CREATININE 1.96 mg/dL (0.60-1.30); POTASSIUM 4.59 mmol/L (3.5-5.1); TOTAL PROTEIN 6.22 g/dL (6.3-8.2)
[2021-02-16] MEDS: ZESTRIL PO SCH (11:19)
[2021-02-16] MEDS: BETAPACE PO SCH ×2 (11:19→20:27)
[2021-02-16] MEDS: COLACE PO SCH ×2 (11:19→20:27)
[2021-02-16] MEDS: ADVAIR 250-50 DISKUS IH SCH ×2 (11:20→20:28)
[2021-02-16] MEDS: SOLU-CORTEF 250 MG IVP SCH ×2 (11:23→21:21)
[2021-02-16] MEDS: MS CONTIN PO PRN (20:32)
[2021-02-17] MEDS: NEURONTIN PO SCH ×5 (00:18→23:55)
[2021-02-17] MEDS: XANAX PO PRN ×2 (02:28→21:07)
[2021-02-17 04:53] LABS: BASOPHILS % (AUTO) 0.1 % (0.0-3.0); EOSINOPHILS % (AUTO) 0.1 % (0.0-7.0); HEMATOCRIT 31.9 % (37.0-47.0); HEMOGLOBIN 9.3 g/dl (12.0-16.0); IMMATURE GRANULOCYTE # (AUTO) 0.1 (0.0-1.0); IMMATURE GRANULOCYTE % (AUTO) 0.7 % (0.0-5.0); LYMPHOCYTES # (AUTO) 2.3 K/uL (0.60-3.4); MEAN CORPUSCULAR HGB CONC 29.2 (31.8-35.4); MEAN CORPUSCULAR VOLUME 82.2 fl (81.0-99.0); MONOCYTES # (AUTO) 0.6 K/uL (0.4-2.0); MONOCYTES % (AUTO) 3.7 (0-10); NEUTROPHILS # (AUTO) 12.2 K/ul (2.0-6.9); NEUTROPHILS % (AUTO) 80.4 % (42.2-75.2); PLATELET COUNT 377 10^3/uL (140-440); RDW COEFFICIENT OF VARIATION 17.6 % (11.6-14.8); RED BLOOD COUNT 3.88 10^6/ul (4.20-5.40)
[2021-02-17 05:06] LABS: ALANINE AMINOTRANSFERASE 13.2 U/L (0-35); ALBUMIN 2.91 g/dL (3.5-5.0); ALKALINE PHOSPHATASE 59.3 U/L (53-141); ASPARTATE AMINO TRANSFERASE 33.4 U/L (14-36); BILIRUBIN,TOTAL 0.29 mg/dL (0.2-1.3); CALCIUM 8.54 mg/dL (8.4-10.2); CARBON DIOXIDE 25.4 mmol/L (22-30.0); CHLORIDE 104.6 mmol/L (98-107); CREATININE 1.53 mg/dL (0.60-1.30); GLUCOSE 130.1 mg/dL (74-106); POTASSIUM 4.85 mmol/L (3.5-5.1); SODIUM 136.8 mmol/L (134.5-145); TOTAL PROTEIN 6.13 g/dL (6.3-8.2)
[2021-02-17 05:15] LABS: BLOOD UREA NITROGEN 64.3 mg/dL (7-17)
[2021-02-17] MEDS: PROTONIX PO SCH (05:55)
[2021-02-17] MEDS: SODIUM CHLORIDE 1,000 ML IV SCH ×3 (06:59→22:42)
[2021-02-17] MEDS: ADVAIR 250-50 DISKUS IH SCH ×2 (09:26→20:16)
[2021-02-17] MEDS: SOLU-CORTEF 250 MG IVP SCH ×2 (09:26→20:06)
--- NOTE | 2021-02-17 09:35 | PN ---
DATE OF SERVICE: 02/16/2021 SUBJECTIVE: The patient was seen and examined today. 85 year old white female hospitalized with dehydration, renal azotemia almost renal failure and weakness. The patient's condition seems to have improved. She seems to doing a lot better. Her hydration status has improved and her appetite is somewhat better. The pain is much less but she is weak. REVIEW OF SYSTEMS: CONSTITUTIONAL: No night sweats. No fatigue, malaise, lethargy. No fever or chills. Not much pain overall. HEENT: Eyes: No visual changes. No eye pain. No eye discharge. ENT: No runny nose. No epistaxis. No sinus pain. No sore throat. No odynophagia. No congestion. RESPIRATORY: No cough, no congestion. No hemoptysis. No shortness of breath. CARDIOVASCULAR: No angina symptoms. No CHF symptoms. No atypical chest pain for CAD. No palpitations. No PND. No orthopnea. GASTROINTESTINAL: No abdominal pain. No nausea or vomiting. No diarrhea or constipation. No hematemesis. No hematochezia. Appetite is still not up to par but improving. GENITOURINARY: No urgency. No frequency. No dysuria. No hematuria. No obstructive symptoms. No discharge. No pain. No significant abnormal bleeding. MUSCULOSKELETAL: No musculoskeletal pain; no joint swelling. NEUROLOGICAL: No headache. No neck pain. No syncope. No seizures. No dizziness. PSYCHIATRIC: Some anxiety. No depression. No suicidal thoughts. No homicidal thoughts. SKIN: No rash. No lesions. No wounds. ENDOCRINE: No unexplained weight loss. No weight gain. HEMATOLOGIC/LYMPHATIC: No anemia. No purpura. No petechiae. No prolonged or excessive bleeding. No palpable lymph nodes. PHYSICAL EXAMINATION: VITAL SIGNS: Temperature 96.9, pulse 82, respiratory rate 20, blood pressure 120/72 and pulse ox 98%. HEENT: Head normocephalic, atraumatic. Eyes: Extraocular muscles are intact. Pupils are equal, round and reactive to light and accommodation. Ears: No lesions. Nose appeared normal. Throat: No exudate or erythema. NECK: Supple. No JVD, no carotid bruit. No lymphadenopathy or thyromegaly. LUNGS: Decreased breath sounds but clear to auscultation. Percussion note normal. Chest symmetrical. HEART: S1, S2, no S3. No murmurs. No cyanosis or clubbing. No ascites. Pulses: Dorsalis pedis and posterior tibial pulses +1 to +2 bilaterally. ABDOMEN: Soft. Nontender. Bowel sounds active. No CVA tenderness. No mass felt. EXTREMITIES: No edema. Full range of motion of all extremities, equal. NEUROLOGIC: No focal deficit. Cranial nerves II through XII are grossly intact. No headache. No double vision. SKIN: Not dry. Intact. Turgor - normal. LYMPHATIC: No palpable lymph nodes/no lymphedema. MUSCULOSKELETAL: Normal joints with no swelling. Muscle tone is normal. LABS: Hgb 9.6, hct 31, WBC 15,000 normal differential, creatinine 1.9, BUN 59 and potassium 145. ASSESSMENT: 1. Renal failure seems to be resolving. The patient has chronic kidney disease. Creatinine today is 1.96 from 2.5. BUN has been steady. Hgb and hct is steady. Hydration status has improved and appetite seems to be improving. The patient is on Xanax and Morphine CONDITION: Stable PROGNOSIS: Poor TIME SPENT: More than 30 minutes. Plan and coordination of the patient's care discussed in the presence of nurse. ANJANA
--- NOTE | 2021-02-17 09:43 | PCM.PROG ---
Attending Provider: ATTENDING PROVIDER: Dr. JULIO PORRAS This patient is seen with Courtney Erickson, Nurse Practitioner. DATE OF SERVICE: 02/17/21 SUBJECTIVE: This 85 year old /WHITE F was hospitalized 02/13/21. The patient is resting comfortably in the chair. She is not eating much. Kidney function worsening. Prognosis is poor. Both the family and patient agreeable to hospice. The patient has increased anxiety with panic type attacks and shortness of breath. REVIEW OF SYSTEMS: CONSTITUTIONAL: Weakness and fatigue. No night sweats. No malaise, lethargy. No fever or chills. HEENT: Eyes: No visual changes. No eye pain. No eye discharge. ENT: No runny nose. No epistaxis. No sinus pain. No odynophagia. No congestion. RESPIRATORY: No cough, no congestion. No hemoptysis. No shortness of breath. CARDIOVASCULAR: No angina symptoms. No CHF symptoms. No atypical chest pain for CAD. No palpitations. No orthopnea.. GASTROINTESTINAL: Decreased appetite. No abdominal pain. No nausea or vomiting. No diarrhea or constipation. No hematemesis. No hematochezia. GENITOURINARY: Decreased output. No urgency. No frequency. No dysuria. No hematuria. No obstructive symptoms. No discharge. No pain. No significant abnormal bleeding. MUSCULOSKELETAL: No musculoskeletal pain; no joint swelling. NEUROLOGICAL: Sleepy, intermittent confusion, sitting in chair in no distress. No headache. No neck pain. No syncope. No seizures. No dizziness. PSYCHIATRIC: Not anxious. No depression. No suicidal thoughts. No homicidal thoughts. SKIN: No rash. No lesions. No wounds. ENDOCRINE: No unexplained weight loss. No weight gain. HEMATOLOGIC/LYMPHATIC: No anemia. No purpura. No petechiae. No prolonged or excessive bleeding. No palpable lymph nodes. PHYSICAL EXAMINATION: GENERAL: The patient has intermittent confusion. She is sitting in chair in no distress. VITAL SIGNS: Temperature 97.1 F, Pulse 87, Respiratory Rate 18, BP 104/61, Pulse Ox 98% HEENT: Head normocephalic, atraumatic. Eyes: Extraocular muscles are intact. Pupils are equal, round and reactive to light and accommodation. Ears: No lesions. Nose appeared normal. Throat: No exudate or erythema. NECK: Supple. No JVD, no carotid bruit. No lymphadenopathy or thyromegaly. LUNGS: Diminished breath sounds. Clear to auscultation. Percussion note normal. Chest symmetrical. HEART: S1, S2, no S3. No murmurs. No cyanosis or clubbing. No ascites. Pulses: Dorsalis pedis and posterior tibial pulses +1 to +2 both sides. ABDOMEN: Soft. Non-tender. Bowel sounds active. No CVA tenderness. No mass felt. EXTREMITIES: No edema. Full range of motion of all extremities, equal. NEUROLOGIC: No focal deficit. Cranial nerves II through XII are grossly intact. No headache. No double vision. SKIN: Not dry. Intact. Turgor-normal. LYMPHATIC: No palpable lymph nodes/no lymphedema. MUSCULOSKELETAL: Normal joints with no swelling. Muscle tone is normal. LAB REVIEW: 02/17/21 04:40 02/17/21 04:40 02/17/21 04:40: Sodium 136.8, Potassium 4.85, Chloride 104.6, Carbon Dioxide 25.4, Anion Gap 11.65, BUN 64.3 H*, Creatinine 1.53 H, Estimated GFR (MDRD) 32.00, BUN/Creatinine Ratio 42.02, Glucose 130.1 H, Calcium 8.54, Total Bilirubin 0.29, AST 33.4, ALT 13.2, Alkaline Phosphatase 59.3, Total Protein 6.13 L, Albumin 2.91 L, Globulin 3.22, Albumin/Globulin Ratio 0.90 02/17/21 04:40: WBC 15.10 H, RBC 3.88 L, Hgb 9.3 L, Hct 31.9 L, MCV 82.2, MCH 24.0 L, MCHC 29.2 L, RDW Coeff of [place] 17.6 H, Plt Count 377, Immature Gran % (Auto) 0.7, Neut % (Auto) 80.4 H, Lymph % (Auto) 15.0, [place] % (Auto) 3.7, Eos % (Auto) 0.1, Baso % (Auto) 0.1, Neut # (Auto) 12.2 H, Lymph # (Auto) 2.3, [place] # (Auto) 0.6, Eos # (Auto) 0.0, Baso # (Auto) 0.0, Immature Gran # (Auto) 0.1 ASSESSMENT: 1. Renal failure. 2. Chronic kidney disease. Creatinine today 1.53H. Hydration status has improved. PLAN: 1. Continue IV fluids. 2. Will make hospice referral. 3. The patient is on Xanax and Morphine. Plan and coordination of the patient's care discussed in the presence of Home Designer and nurse. CONDITION: STABLE PROGNOSIS: POOR SCRIBED BY: JESSICA KHAN Lodge Sales Associate scribed while in presence of service performed by Dr. Porras/Courtney Erickson APRN on 02/17/21 ([id number])
[2021-02-17] MEDS: COLACE PO SCH ×2 (11:08→20:22)
[2021-02-17] MEDS: BETAPACE PO SCH ×2 (11:08→20:06)
[2021-02-17] MEDS: ZESTRIL PO SCH (11:09)
--- NOTE | 2021-02-17 11:12 | PN ---
DATE OF SERVICE: 02/15/2021 SUBJECTIVE: 85 year old white female hospitalized with dehydration and renal failure. The patient's condition seems to have improved some but she is still feeling weak and tired. Somewhat drowsy from repeated Morphine injection that she requires for anxiousness and somewhat panic and also pain. The patient has declined to go to any hematology/oncologist. The patient declined upper GI. REVIEW OF SYSTEMS: CONSTITUTIONAL: No night sweats. No fatigue, malaise, lethargy. No fever or chills. Says she is feeling weak. HEENT: Eyes: No visual changes. No eye pain. No eye discharge. ENT: No runny nose. No epistaxis. No sinus pain. No sore throat. No odynophagia. No congestion. RESPIRATORY: No cough, no congestion. No hemoptysis. No shortness of breath. CARDIOVASCULAR: No angina symptoms. No CHF symptoms. No atypical chest pain for CAD. No palpitations. No PND. No orthopnea. GASTROINTESTINAL: No abdominal pain. No nausea or vomiting. No diarrhea or constipation. No hematemesis. No hematochezia. Appetite is not that good. GENITOURINARY: No urgency. No frequency. No dysuria. No hematuria. No obstructive symptoms. No discharge. No pain. No significant abnormal bleeding. MUSCULOSKELETAL: No musculoskeletal pain; no joint swelling. Practically doesn't seem to have pain at present but patient may have had Morphine injection a couple hours ago. NEUROLOGICAL: No headache. No neck pain. No syncope. No seizures. No dizziness. PSYCHIATRIC: Not anxious. No depression. No suicidal thoughts. No homicidal thoughts. SKIN: No rash. No lesions. No wounds. ENDOCRINE: No unexplained weight loss. No weight gain. HEMATOLOGIC/LYMPHATIC: No anemia. No purpura. No petechiae. No prolonged or excessive bleeding. No palpable lymph nodes. PHYSICAL EXAMINATION: VITAL SIGNS: Temperature 97.6, pulse 79, respiratory rate 16, blood pressure 98/68 and pulse ox 97% on 2 liters. HEENT: Head normocephalic, atraumatic. Eyes: Extraocular muscles are intact. Pupils are equal, round and reactive to light and accommodation. Ears: No lesions. Nose appeared normal. Throat: No exudate or erythema. NECK: Supple. No JVD, no carotid bruit. No lymphadenopathy or thyromegaly. LUNGS: Decreased breath sounds but clear to auscultation. Percussion note normal. Chest symmetrical. HEART: S1, S2, no S3. No murmurs. No cyanosis or clubbing. No ascites. Pulses: Dorsalis pedis and posterior tibial pulses +1 to +2 bilaterally. ABDOMEN: Soft. Nontender. Bowel sounds active. No CVA tenderness. No mass felt. EXTREMITIES: No edema. Full range of motion of all extremities, equal. NEUROLOGIC: No focal deficit. Cranial nerves II through XII are grossly intact. No headache. No double vision. SKIN: Not dry. Intact. Turgor - normal. Somewhat pale. LYMPHATIC: No palpable lymph nodes/no lymphedema. MUSCULOSKELETAL: Normal joints with no swelling. Muscle tone is normal. LABS: Hgb 8.6, hct 28, WBC 14,000 normal differential, creatinine 2.3, BUN 59, potassium 4.3. ASSESSMENT: 1. Dehydration with renal failure with estimated GFR 20cc per minutes. The patient's kidney functions were acceptable. The patient has prerenal azotemia. 2. Metastatic disease involving liver, lung and peritoneum entry 3. Chronic anemia which has worsened 4. Diabetes Mellitus PLAN: 1. Continue Fluids slow 2. Monitor urine output 3. Jacome Catheter 4. Continue Steroids and antibiotics 5. Monitor CBC and CMP 6. Comfort measures/Conservative treatment/No aggressive workup per patient's choice. The patient is DNR. The patient is going to be on Hospice once the patient is discharge. TIME SPENT: More than 30 minutes. Plan and coordination of the patient's care discussed in the presence of nurse. ANJANA
--- NOTE | 2021-02-17 11:59 | RS.SLPCNOT ---
Speech Case Note Date of Note: 02/17/21 Title: Swallow consult Note: RN called DANCE CHOREOGRAPHER this a.m. with concerns for oral medication administration. RN reported pt was too lethargic and demonstrating difficulty with PO intake. She requested to downgrade to puree. DANCE CHOREOGRAPHER discussed waiting to discuss extensive case with possible hospice plans. DANCE CHOREOGRAPHER discussed PO concerns with disease case manager rn. He reported pt has plans for d/c from hospital this date, with hospice care tomorrow this date. DANCE CHOREOGRAPHER, disease case manager rn, and RN decided to hold all PO medications at this time due to pt's lethargy and decreased coordination with any PO trials. DANCE CHOREOGRAPHER reviewed safe swallow and aspiration precautions, least restrictive diet te xture, and referral back to DANCE CHOREOGRAPHER if needed. At this time, pt is not safe for PO trials unless alert and talkative. DANCE CHOREOGRAPHER recommends alternative means for medications.
[2021-02-17] MEDS: MS CONTIN PO PRN (20:06)
[2021-02-18 04:43] LABS: BASOPHILS % (AUTO) 0.1 % (0.0-3.0); HEMATOCRIT 33.1 % (37.0-47.0); HEMOGLOBIN 9.7 g/dl (12.0-16.0); IMMATURE GRANULOCYTE # (AUTO) 0.1 (0.0-1.0); IMMATURE GRANULOCYTE % (AUTO) 0.6 % (0.0-5.0); LYMPHOCYTES # (AUTO) 2.3 K/uL (0.60-3.4); LYMPHOCYTES % (AUTO) 13.5 (10.0-50.0); MEAN CORPUSCULAR HEMOGLOBIN 24.1 pg (27.0-31.0); MEAN CORPUSCULAR HGB CONC 29.3 (31.8-35.4); MEAN CORPUSCULAR VOLUME 82.1 fl (81.0-99.0); MONOCYTES # (AUTO) 0.7 K/uL (0.4-2.0); MONOCYTES % (AUTO) 4.2 (0-10); NEUTROPHILS # (AUTO) 13.9 K/ul (2.0-6.9); NEUTROPHILS % (AUTO) 81.6 % (42.2-75.2); PLATELET COUNT 410 10^3/uL (140-440); RDW COEFFICIENT OF VARIATION 17.7 % (11.6-14.8); RED BLOOD COUNT 4.03 10^6/ul (4.20-5.40)
[2021-02-18 04:58] LABS: ALANINE AMINOTRANSFERASE 13.9 U/L (0-35); ALBUMIN 2.92 g/dL (3.5-5.0); ALKALINE PHOSPHATASE 63.7 U/L (53-141); BILIRUBIN,TOTAL 0.24 mg/dL (0.2-1.3); CALCIUM 9.01 mg/dL (8.4-10.2); CARBON DIOXIDE 25.1 mmol/L (22-30.0); CHLORIDE 107.4 mmol/L (98-107); CREATININE 1.78 mg/dL (0.60-1.30); GLUCOSE 134.2 mg/dL (74-106); POTASSIUM 5.1 mmol/L (3.5-5.1); SODIUM 139.2 mmol/L (134.5-145); TOTAL PROTEIN 6.1 g/dL (6.3-8.2)
[2021-02-18 05:06] LABS: BLOOD UREA NITROGEN 67.4 mg/dL (7-17)
[2021-02-18] MEDS: PROTONIX PO SCH (05:34)
[2021-02-18] MEDS: NEURONTIN PO SCH (05:35)
[2021-02-18 05:51] VITALS: BP 110/67; TEMP 97.1
[2021-02-18] MEDS: ZESTRIL PO SCH (08:37)
[2021-02-18] MEDS: COLACE PO SCH (08:37)
[2021-02-18] MEDS: ADVAIR 250-50 DISKUS IH SCH (08:38)
[2021-02-18] MEDS: BETAPACE PO SCH (08:38)
[2021-02-18] MEDS: SOLU-CORTEF 250 MG IVP SCH (09:10)
--- NOTE | 2021-02-18 09:19 | PCM.PROG ---
Attending Provider: ATTENDING PROVIDER: Dr. JULIO PORRAS This patient is seen with Courtney Erickson, Nurse Practitioner. DATE OF SERVICE: 02/18/21 SUBJECTIVE: This 85 year old /WHITE F was hospitalized 02/13/21. The patient is resting comfortably in the chair. She has been resting well. She had an episode of anxiety last night and improved with Xanax. Pain has been controlled. REVIEW OF SYSTEMS: CONSTITUTIONAL: Weakness. No night sweats. No fatigue, malaise, lethargy. No fever or chills. HEENT: Eyes: No visual changes. No eye pain. No eye discharge. ENT: No runny nose. No epistaxis. No sinus pain. No odynophagia. No congestion. RESPIRATORY: No cough, no congestion. No hemoptysis. No shortness of breath. CARDIOVASCULAR: No angina symptoms. No CHF symptoms. No atypical chest pain for CAD. No palpitations. No orthopnea.. GASTROINTESTINAL: No abdominal pain. No nausea or vomiting. No diarrhea or constipation. No hematemesis. No hematochezia. GENITOURINARY: No urgency. No frequency. No dysuria. No hematuria. No obstructive symptoms. No discharge. No pain. No significant abnormal bleeding. MUSCULOSKELETAL: Generalized pain. NEUROLOGICAL: Awake, alert with intermittent confusion. No headache. No neck pain. No syncope. No seizures. No dizziness. PSYCHIATRIC: Not anxious. No depression. No suicidal thoughts. No homicidal thoughts. SKIN: No rash. No lesions. No wounds. ENDOCRINE: No unexplained weight loss. No weight gain. HEMATOLOGIC/LYMPHATIC: No anemia. No purpura. No petechiae. No prolonged or excessive bleeding. No palpable lymph nodes. PHYSICAL EXAMINATION: GENERAL: The patient is awake, alert and oriented to person, lying/sitting in chair in no distress. VITAL SIGNS: Temperature 97.1 F, Pulse 89, Respiratory Rate 20, BP 110/67, Pulse Ox 98% HEENT: Head normocephalic, atraumatic. Eyes: Extraocular muscles are intact. Pupils are equal, round and reactive to light and accommodation. Ears: No lesions. Nose appeared normal. Throat: No exudate or erythema. NECK: Supple. No JVD, no carotid bruit. No lymphadenopathy or thyromegaly. LUNGS: Diminished breath sounds. Clear to auscultation. Percussion note normal. Chest symmetrical. HEART: S1, S2, no S3. No murmurs. No cyanosis or clubbing. No ascites. Pulses: Dorsalis pedis and posterior tibial pulses +1 to +2 both sides. ABDOMEN: Soft. Non-tender. Bowel sounds active. No CVA tenderness. No mass felt. EXTREMITIES: No edema. Full range of motion of all extremities, equal. NEUROLOGIC: No focal deficit. Cranial nerves II through XII are grossly intact. No headache. No double vision. SKIN: Not dry. Intact. Turgor-normal. LYMPHATIC: No palpable lymph nodes/no lymphedema. MUSCULOSKELETAL: Normal joints with no swelling. Muscle tone is normal. LAB REVIEW: 02/18/21 04:23 02/18/21 04:23 02/18/21 04:23: Sodium 139.2, Potassium 5.10, Chloride 107.4 H, Carbon Dioxide 25.1, Anion Gap 11.80, BUN 67.4 H*, Creatinine 1.78 H, Estimated GFR (MDRD) 27 .00, BUN/Creatinine Ratio 37.86, Glucose 134.2 H, Calcium 9.01, Total Bilirubin 0.24, AST 30.0, ALT 13.9, Alkaline Phosphatase 63.7, Total Protein 6.10 L, Albumin 2.92 L, Globulin 3.18, Albumin/Globulin Ratio 0.91 02/18/21 04:23: WBC 17.00 H, RBC 4.03 L, Hgb 9.7 L, Hct 33.1 L, MCV 82.1, MCH 24.1 L, MCHC 29.3 L, RDW Coeff of [place] 17.7 H, Plt Count 410, Immature Gran % (Auto) 0.6, Neut % (Auto) 81.6 H, Lymph % (Auto) 13.5, [place] % (Auto) 4.2, Eos % (Auto) 0.0, Baso % (Auto) 0.1, Neut # (Auto) 13.9 H, Lymph # (Auto) 2.3, [place] # (Auto) 0.7, Eos # (Auto) 0.0, Baso # (Auto) 0.0, Immature Gran # (Auto) 0.1 ASSESSMENT: Please see below. 1. Renal failure 2. Chronic kidney disease. PLAN: 1. Hospice needs to be in place prior to discharge. Plan and coordination of the patient's care discussed in the presence of Patrol Judge and nurse. CONDITION: Stable. Prognosis: Poor. SCRIBED BY: JESSICA KHAN Game Bird Farmer scribed while in presence of service performed by Dr. Porras/Courtney Erickson APRN on 02/18/21 ([id number])
--- NOTE | 2021-02-18 10:35 | HP ---
DATE OF SERVICE: 02/13/2021 REASON FOR HOSPITALIZATION/HISTORY OF PRESENT ILLNESS: 85 year old white female who was just discharged on Wednesday was found to have extensive liver and peritoneal metastasis with lymphadenopathy to the thorax. She was discharged home on Wednesday and was found to be very weak at home by her family. She had fallen and they couldn't get her up. She was pale, confused. PAST MEDICAL HISTORY: Recent finding of lymphadenopathy in the thorax Extensive liver and peritoneal metastasis. The patient has an appointment scheduled with Dr. Ward for February 20 but is not refusing to go to the this appointment. Recent gastritis with nausea and vomiting Chronic anemia Hyponatremia Hypercoagulation from liver metastasis History of CVA Atrial fibrillation no longer on Coumadin due to hypercoagulopathy Hypertension Dyslipidemia Asthma Diabetes Mellitus type II GERD History of GOUT Polyarthritis Degenerative joint disease of the lumbar Chronic back pain Neuropathy History of non-compliance with diet, medications and followups. PAST SURGICAL HISTORY: Bilateral cataract extraction REVIEW OF SYSTEMS: CONSTITUTIONAL: No night sweats. No fatigue, malaise, lethargy. No fever or chills. Weakness. HEENT: Eyes: No visual changes. No eye pain. No eye discharge. ENT: No runny nose. No epistaxis. No sinus pain. No sore throat. No odynophagia. No ear pain. No congestion. RESPIRATORY: No cough, no congestion. No hemoptysis. Shortness of breath. CARDIOVASCULAR: No angina symptoms. No CHF symptoms. No atypical chest pain for CAD. No palpitations. No PND. No orthopnea. GASTROINTESTINAL: No abdominal pain. No nausea or vomiting. No diarrhea or constipation. No hematemesis. No hematochezia. GENITOURINARY: No urgency. No frequency. No dysuria. No hematuria. No obstructive symptoms. No discharge. No pain. No significant abnormal bleeding. MUSCULOSKELETAL: No musculoskeletal pain. No joint swelling. No arthritis. Leg edema. NEUROLOGICAL: No headache. No neck pain. No syncope. No seizures. No dizziness. Confusion. PSYCHIATRIC: Not anxious. No depression. No suicidal thoughts. No homicidal thoughts. SKIN: No rash. No lesions. No wounds. ENDOCRINE: No unexplained weight loss. No weight gain. HEMATOLOGIC/LYMPHATIC: No anemia. No purpura. No petechiae. No prolonged or excessive bleeding. No palpable lymph nodes. PERSONAL/FAMILY/SOCIAL HISTORY: She is . She currently lives at home by herself although her daughter and [id number] have both been staying with her. No alcohol or illicit drug use. Non-smoker. MEDICATIONS: Gabapentin 100mg PO Q6 hours Pantoprazole 40mg PO QDAC Vitamin A, Vitamin C, Biotin-zinc and copper. one PO DAILY Zestril 20mg PO daily Fluticasone propoin-salmetrol 250-50mcg one inhalation BID Cyclobenzaprine 10mg PO BID PRN Sotalol 80mg PO BID Xanax 0.25mg PO BID PRN Stool softener 100mg PO BID MS Contin 15mg PO Q 6HOURS PRN Zofran 4mg PO Q 6 hours PRN ALLERGIES: No known allergies PHYSICAL EXAMINATION: GENERAL: The patient is alert and oriented to person only, not place and time. VITAL SIGNS: HEENT: Head normocephalic, atraumatic. Eyes: Extraocular muscles are intact. Pupils are equal, round and reactive to light and accommodation. Ears: No lesions. Nose appeared normal. Throat: No exudate or erythema. NECK: Supple. No JVD, no carotid bruit. No lymphadenopathy or thyromegaly. LUNGS:Diminished breath sounds with bilateral inspiratory wheezing. Clear to auscultation. Percussion note normal. Chest symmetrical. HEART: S1, S2, no S3. No murmur. No cyanosis or clubbing. No ascites. Pulses: Dorsalis pedis and posterior tibial pulses +1 to +2 bilaterally. ABDOMEN: Soft. Nontender. Bowel sounds active. No CVA tenderness. No mass felt. EXTREMITIES: +1 bilateral lower extremity edema. Full range of motion of all extremities, equal. NEUROLOGIC: No focal deficit. Cranial nerves II through XII are grossly intact. No headache, no double vision or headache. SKIN: Not dry. Intact. Turgor - normal. Pallor. LYMPHATIC: No palpable lymph nodes/no lymphedema. MUSCULOSKELETAL: Normal joints with no swelling. Muscle tone is normal. LABS: BUN 56, creatinine 2.6, hgb 9.8. ASSESSMENT: 1. Acute renal failure 2. Dehydration 3. Anemia 4. New finding of extensive liver and peritoneal metastasis 5. Lymphadenopathy of the thorax PLAN: 1. We will admit 2. Routine telemetry orders 3. CBC and CMP daily 4. Start Normal saline IV at 75cc an hour 5. The patient was getting Morphine at home due to her increased confusion and lethargy. We will hold Morphine for now. 6. Give 20mg Lasix IV 7. Jacome catheter placement 8. Regular diet 9. INR daily 10. Oxygen at 1-2 liters via nasal canula 11.At this point the patient states that she does not wish to see Dr. Ward for further evaluation of the cancer. She states she is ready to . She is ready for Hospice. She is a DNR. Her family is agreeable to Hospice to be scheduled at a later date. We will try to rehydration. 12. Zofran 4mg IV Q 6 hours for nausea. 13. Continue other medications. We will follow closely. PROGNOSIS: Poor. She has a life expectancy of less than 6 months. TIME SPENT: More than 70 minutes. MTDD
--- NOTE | 2021-02-18 11:03 | CM.DICTOOL ---
ADMISSION: 02/13/21 13:58 DISCHARGE: FEBRUARY 18, 2021 DATE OF SERVICE: 02/18/21 FINAL DIAGNOSIS RENAL FAILURE CHRONIC KIDNEY DISEASE DEHYDRATION METASTATIC DISEASE TO LIVER AND LUNG DISEASE HX: [id number] LIKELY EXTENSIVE LIVER AND PERITONEAL METASTASIS ACUTE GASTRITIS ANEMIA,CHRONIC HYPONATREMIA HYPERKALEMIA HYPERCOAGULOPATHY FROM LIVER METS BLOOD IN STOOL - LIKELY HEMORRHOIDAL CVA ATRIAL FIBRILLATION- WAS ON COUMADIN HYPERTENSION DYSLIPIDEMIA ASTHMA DIABETES MELLITUS, TYPE 2 GERD GOUT OSTEOARTHRITIS DEGENERATIVE DISC DISEASE, LUMBAR CHRONIC BACK PAIN NEUROPATHY NONCOMPLIANCE WITH DIET, MEDICATIONS, AND FOLLOW-UP SURGICAL: CATARACT EXTRACTION CODE STATUS: DO NOT RESUSCITATE LAST VITALS Temp Pulse Resp BP Pulse Ox 97.1 F L 89 20 110/67 98 02/18/21 05:49 02/18/21 05:49 02/18/21 05:49 02/18/21 05:49 02/18/21 05:52 TAKE THESE MEDICATIONS AT HOME Alprazolam (Alprazolam 0.25 Mg Tablet) 0.25 mg PO TID PRN PRN Reason: Anxiety Last Admin: 02/17/21 21:07 Dose: 0.25 mg Documented by: Cyclobenzaprine HCl (Cyclobenzaprine Hcl 10 Mg Tablet) 10 mg PO BID PRN PRN Reason: MUSCLE SPASM Docusate Sodium (Docusate Sodium 100 Mg Capsule) 100 mg PO BID [facility] Last Admin: 02/18/21 08:37 Dose: 100 mg Documented by: Gabapentin (Gabapentin 100 Mg Capsule) 100 mg PO Q6HR [facility] Last Admin: 02/18/21 05:35 Dose: Not Given Documented by: Lisinopril (Lisinopril 10 Mg Tablet) 20 mg PO DAILY [facility] Last Admin: 02/18/21 08:37 Dose: 20 mg Documented by: Morphine Sulfate (Morphine Sulfate 15 Mg Tablet.Er) 15 mg PO Q12H PRN PRN Reason: GENERALIZED PAIN Last Admin: 02/17/21 20:06 Dose: 15 mg Documented by: Non-Formulary Medication (Vit A-Vit K-Baozwo-Rasw-Copper [[id number](Vit A,C-Biotin)]) 1 each PO DAILY [facility] Last Admin: 02/18/21 09:11 Dose: Not Given Documented by: Ondansetron HCl 4 mg PO 6H PRN PRN Reason: Nausea / Vomiting Last Admin: 02/15/21 21:18 Dose: 4 mg Documented by: Pantoprazole Sodium (Pantoprazole Sodium 40 Mg Tablet.) 40 mg PO QDAC [facility] Last Admin: 02/18/21 05:34 Dose: 40 mg Documented by: Fluticasone/Salmeterol (Fluticasone/Salmeterol 250/50 Diskus) 1 puff IH BID [facility] Last Admin: 02/18/21 08:38 Dose: 1 puff Documented by: Sotalol HCl (Sotalol Hcl 80 Mg Tablet) 80 mg PO BID [facility] Last Admin: 02/18/21 08:38 Dose: 80 mg Documented by: ALLERGIES No Known Allergies Allergy (Verified 02/07/21 14:41) DISCONTINUED MEDICATIONS NONE NEW PRESCRIPTIONS: NONE SMOKING: N/A DISEASE SPECIFIC EDUCATION: HOSPICE CARE DECUBITIS PREVENTION COVID LAB REVIEW: 02/18/21 04:23 02/18/21 04:23 02/18/21 04:23: Sodium 139.2, Potassium 5.10, Chloride 107.4 H, Carbon Dioxide 25.1, Anion Gap 11.80, BUN 67.4 H*, Creatinine 1.78 H, Estimated GFR (MDRD) 27.00, BUN/Creatinine Ratio 37.86, Glucose 134.2 H, Calcium 9.01, Total Bilirubin 0.24, AST 30.0, ALT 13.9, Alkaline Phosphatase 63.7, Total Protein 6.10 L, Albumin 2.92 L, Globulin 3.18, Albumin/Globulin Ratio 0.91 02/18/21 04:23: WBC 17.00 H, RBC 4.03 L, Hgb 9.7 L, Hct 33.1 L, MCV 82.1, MCH 24.1 L, MCHC 29.3 L, RDW Coeff of Corby 17.7 H, Plt Count 410, Immature Gran % (Auto) 0.6, Neut % (Auto) 81.6 H, Lymph % (Auto) 13.5, [place] % (Auto) 4.2, Eos % (Auto) 0.0, Baso % (Auto) 0.1, Neut # (Auto) 13.9 H, Lymph # (Auto) 2.3, [place] # (Auto) 0.7, Eos # (Auto) 0.0, Baso # (Auto) 0.0, Immature Gran # (Auto) 0.1 PLAN: DISCHARGE : HOME TODAY, FEBRUARY 18, 2021, DTR TO STAY WITH HER [facility] WITH COMFORT MEASURES ACTIVITY: UP TOLERATED WITH ROLLATOR AND ASSIST OF ONE IF ABLE DECUBITIS PRECAUTIONS AND CARE FALL PRECAUTIONS BLEEDING PRECAUTIONS PANDEMIC PRECAUTIONS DIET: PUREED REGULAR WITH FLUIDS ONLY WHEN ABLE FOLLOW UP: SEE DR. PORRAS/ JOELLE MANNING APRN/ SERENA CASTRO APRN IN THE OFFICE IF ABLE HOME WITH HOSPICE HOME OXYGEN: 2 LITERS A MINUTE PER NASAL CANNULA CONTINUOUS OXYGEN PRECAUTIONS CODE STATUS: DO NOT RESUSCITATE MRS NATHAN IS ALERT AND ORIENTED X 3. WITH DETAILS DISTANT AT THIS TIME, LETHARGIC. SHE REMAINS PLEASANT. SHE IS SHORT OF BREATH AT REST AT TIMES AND RESPIRATIONS ARE DEEP AND SLOW. SHE HAS BEEN HAVING PAIN TO HER BACK AND GENERALIZED DISCOMFORT. MS CONTIN HAS BEEN EFFECTIVE. SKIN WARM AND DRY AND INTACT AND SLIGHTLY ASHENED. POOR APPETITE AND TAKING IN VERY LITTLE NUTRITION AND FLUIDS. PUREED DIET ORDERED WHEN SHE INTERMITTENTLY TOLERATES. SHE PREFERS TO STAY IN THE CHAIR AND SHE IS UNABLE TO STAND OR TRANSFER DUE TO SEVERE WEAKNESS. SHE HAS A CATHETER WITH CLEAR YELLOW SCANT OUTPUT AND USES DEPENDS. LAST BM HER DTR, GYPSY IS GOING TO STAY WITH HER AT HER HOME. [facility] TO PROVIDE SERVICES. WILL GO HOME VIA AMBULANCE. MD JOELLE ALCARAZ APRN ALYCE HANNAN, APRN
--- NOTE | 2021-02-18 11:04 | PN ---
DATE OF SERVICE: 02/13/21 SUBJECTIVE: Ms. Jordyn Mcconnell was directly admitted to the hospital because the patient was unable to get up, could not get her up at home. She at times is very weak and not able to respond and cooperate. She was brought to the hospital where she seems to be extremely weak and tired. She hasn't drank or ate ever since she was discharged. She is oriented to time, place and person. REVIEW OF SYSTEMS: CONSTITUTIONAL: Weakness. No night sweats. No fatigue, malaise, lethargy. No fever or chills. HEENT: Eyes: No visual changes. No eye pain. No eye discharge. ENT: No runny nose. No epistaxis. No sinus pain. No sore throat. No odynophagia. No congestion. RESPIRATORY: No cough, no congestion. No hemoptysis. No shortness of breath. CARDIOVASCULAR: No angina symptoms. No CHF symptoms. No atypical chest pain for CAD. No palpitations. No PND. No orthopnea. GASTROINTESTINAL: Poor appetite. No abdominal pain. No nausea or vomiting. No diarrhea or constipation. No hematemesis. No hematochezia. GENITOURINARY: No urgency. No frequency. No dysuria. No hematuria. No obstructive symptoms. No discharge. No pain. No significant abnormal bleeding. MUSCULOSKELETAL: No musculoskeletal pain; no joint swelling. NEUROLOGICAL: No headache. No neck pain. No syncope. No seizures. No dizziness. PSYCHIATRIC: Not anxious. No depression. No suicidal thoughts. No homicidal thoughts. SKIN: No rash. No lesions. No wounds. ENDOCRINE: No unexplained weight loss. No weight gain. HEMATOLOGIC/LYMPHATIC: No anemia. No purpura. No petechiae. No prolonged or excessive bleeding. No palpable lymph nodes. PHYSICAL EXAMINATION: VITAL SIGNS: Oxygen saturation 94% on room air. HEENT: Head normocephalic, atraumatic. Eyes: Extraocular muscles are intact. Pupils are equal, round and reactive to light and accommodation. Ears: No lesions. Nose appeared normal. Throat: No exudate or erythema. NECK: Supple. No JVD, no carotid bruit. No lymphadenopathy or thyromegaly. LUNGS: Decreased breath sounds but clear to auscultation. Percussion note normal. Chest symmetrical. HEART: S1, S2, no S3. No murmurs. No cyanosis or clubbing. No ascites. Pulses: Dorsalis pedis and posterior tibial pulses +1 to +2 bilaterally. ABDOMEN: Soft. Nontender. Bowel sounds active. No CVA tenderness. No mass felt. EXTREMITIES: No edema. Full range of motion of all extremities, equal. NEUROLOGIC: No focal deficit. Cranial nerves II through XII are grossly intact. No headache. No double vision. SKIN: Not dry. Intact. Turgor - normal. LYMPHATIC: No palpable lymph nodes/no lymphedema. MUSCULOSKELETAL: Normal joints with no swelling. Muscle tone is normal. EKG which is atrial fibrillation, no acute changes. Rate is 100/min. The patient has a lot of things on her mind. Yesterday she had not gone for the mammogram or GI today. She had an appointment with medication aid/oncologist which she did not keep. The patient does not want anything more done about the condition she has. She is refusing to have consultation by medication aid/oncologist or any tests performed. She wants comfort measures. The family is in the room, especially daughter. TIME SPENT: More than 30 minutes. Plan and coordination of the patient's care discussed in the presence of nurse. ANJANA
--- NOTE | 2021-02-18 14:19 | PN ---
DATE OF SERVICE: 02/17/2021 SUBJECTIVE: The patient was seen and examined with the Nurse Practitioner. The patient's condition is stable. Prognosis is poor. The patient has metastatic liver and lung disease with involvement of peritoneal. Appetite is not so good. Pain and discomfort is controlled. Kidney functions have improved as far as creatinine. The patient is going to be on Hospice. She is going to be discharged tomorrow. TIME SPENT: More than 30 minutes. Plan and coordination of the patient's care discussed in the presence of nurse. ANJANA
--- NOTE | 2021-02-19 08:15 | DS ---
DATE OF SERVICE: 02/18/2021 FINAL DIAGNOSIS: RENAL FAILURE CHRONIC KIDNEY DISEASE DEHYDRATION METASTATIC DISEASE TO LIVER AND LUNG DISEASE HISTORY: [id number] LIKELY EXTENSIVE LIVER AND PERITONEAL METASTASIS ACUTE GASTRITIS ANEMIA,CHRONIC HYPONATREMIA HYPERKALEMIA HYPERCOAGULOPATHY FROM LIVER METS BLOOD IN STOOL - LIKELY HEMORRHOIDAL CVA ATRIAL FIBRILLATION- WAS ON COUMADIN HYPERTENSION DYSLIPIDEMIA ASTHMA DIABETES MELLITUS, TYPE 2 GERD GOUT OSTEOARTHRITIS DEGENERATIVE DISC DISEASE, LUMBAR CHRONIC BACK PAIN NEUROPATHY NONCOMPLIANCE WITH DIET, MEDICATIONS, AND FOLLOW-UP SURGICAL: CATARACT EXTRACTION CODE STATUS: DO NOT RESUSCITATE LAST VITALS: Temp Pulse Resp BP Pulse Ox 97.1 F L 89 20 110/67 98 02/18/21 05:49 02/18/21 05:49 02/18/21 05:49 02/18/21 05:49 02/18/21 05:52 DISCHARGE INSTRUCTIONS: DISCHARGE : HOME TODAY, FEBRUARY 18, 2021, DTR TO STAY WITH HER. [facility] WITH COMFORT MEASURES. MD FOLLOW UP: SEE DR. PORRAS/ JOELLE MANNING APRN/ SERENA CASTRO APRN IN THE OFFICE IF ABLE HOME WITH HOSPICE. CODE STATUS: DO NOT RESUSCITATE. HOME OXYGEN: 2 LITERS A MINUTE PER NASAL CANNULA CONTINUOUS. OXYGEN PRECAUTIONS. TAKE THESE MEDICATIONS AT HOME: Alprazolam (Alprazolam 0.25 Mg Tablet) 0.25 mg PO TID PRN PRN Reason: Anxiety Last Admin: 02/17/21 21:07 Dose: 0.25 mg Documented by: Cyclobenzaprine HCl (Cyclobenzaprine Hcl 10 Mg Tablet) 10 mg PO BID PRN PRN Reason: MUSCLE SPASM Docusate Sodium (Docusate Sodium 100 Mg Capsule) 100 mg PO BID [facility] Last Admin: 02/18/21 08:37 Dose: 100 mg Documented by: Gabapentin (Gabapentin 100 Mg Capsule) 100 mg PO Q6HR [facility] Last Admin: 02/18/21 05:35 Dose: Not Given Documented by: Lisinopril (Lisinopril 10 Mg Tablet) 20 mg PO DAILY [facility] Last Admin: 02/18/21 08:37 Dose: 20 mg Documented by: Morphine Sulfate (Morphine Sulfate 15 Mg Tablet.Er) 15 mg PO Q12H PRN PRN Reason: GENERALIZED PAIN Last Admin: 02/17/21 20:06 Dose: 15 mg Documented by: Non-Formulary Medication (Vit A-Vit U-Gthtpz-Guik-Copper [[id number]-Zqko(Vit A,C-Biotin)]) 1 each PO DAILY [facility] Last Admin: 02/18/21 09:11 Dose: Not Given Documented by: Ondansetron HCl 4 mg PO 6H PRN PRN Reason: Nausea / Vomiting Last Admin: 02/15/21 21:18 Dose: 4 mg Documented by: Pantoprazole Sodium (Pantoprazole Sodium 40 Mg Tablet.) 40 mg PO QDAC [facility] Last Admin: 02/18/21 05:34 Dose: 40 mg Documented by: Fluticasone/Salmeterol (Fluticasone/Salmeterol 250/50 Diskus) 1 puff IH BID [facility] Last Admin: 02/18/21 08:38 Dose: 1 puff Documented by: Sotalol HCl (Sotalol Hcl 80 Mg Tablet) 80 mg PO BID [facility] Last Admin: 02/18/21 08:38 Dose: 80 mg Documented by: ALLERGIES: No Known Allergies Allergy (Verified 02/07/21 14:41) DISCONTINUED MEDICATIONS: NONE NEW PRESCRIPTIONS: NONE SMOKING: N/A DISEASE SPECIFIC EDUCATION: HOSPICE CARE DECUBITIS PREVENTION COVID LAB REVIEW: 02/18/21 04:23 02/18/21 04:23 02/18/21 04:23: Sodium 139.2, Potassium 5.10, Chloride 107.4 H, Carbon Dioxide 25.1, Anion Gap 11.80, BUN 67.4 H*, Creatinine 1.78 H, Estimated GFR (MDRD) 27.00, BUN/Creatinine Ratio 37.86, Glucose 134.2 H, Calcium 9.01, Total Bilirubin 0.24, AST 30.0, ALT 13.9, Alkaline Phosphatase 63.7, Total Protein 6.10 L, Albumin 2.92 L, Globulin 3.18, Albumin/Globulin Ratio 0.91 02/18/21 04:23: WBC 17.00 H, RBC 4.03 L, Hgb 9.7 L, Hct 33.1 L, MCV 82.1, MCH 24.1 L, MCHC 29.3 L, RDW Coeff of Corby 17.7 H, Plt Count 410, Immature Gran % (Auto) 0.6, Neut % (Auto) 81.6 H, Lymph % (Auto) 13.5, [place] % (Auto) 4.2, Eos % (Auto) 0.0, Baso % (Auto) 0.1, Neut # (Auto) 13.9 H, Lymph # (Auto) 2.3, [place] # (Auto) 0.7, Eos # (Auto) 0.0, Baso # (Auto) 0.0, Immature Gran # (Auto) 0.1 ACTIVITY: UP TOLERATED WITH ROLLATOR AND ASSIST OF ONE IF ABLE DECUBITIS PRECAUTIONS AND CARE FALL PRECAUTIONS BLEEDING PRECAUTIONS PANDEMIC PRECAUTIONS DIET: PUREED REGULAR WITH FLUIDS ONLY WHEN ABLE HOSPITAL COURSE: 85 year old white female who was recently hospitalized about a week and a half ago with new found metastatic disease to the liver and lung. She was discharged last Wednesday from the hospital with a plan to have an appointment with Dr. Ward on February 20. She had an abnormal CAT scan of the abdomen which showed an area that was not clearly seen which the radiologist felt could be an underlining neoplasm. She does have lymphadenopathy in the thorax. She went home with the intent with following up with us in the office and Dr. Ward. However, while at home she became extreme weak, starting vomiting and she fell. The family couldn't get her up. She was readmitted for dehydration and weakness and found to be in acute renal failure with a BUN of 56 and creatinine 1.9. We admitted her and place her on normal saline at 75. Initially she was confused, lethargy. She had been on Morphine previously but this was held. Over the course of the past several days she has stated that she doesn't want to see Dr. Ward. She wants no further followup. She wants Hospice, she is ready to . Her labs have been stable other than her kidney function which had steadily declined despite IV fluids. She is in end stage metastatic disease. Hospice has been arranged. They are going to be at her home this afternoon whenever she gets home from the hospital. The family is all in agreement for Hospice care. I do feel this is best for her at this point. They will arrange for pain control and anxiety control. She has had some episode of panic and anxiety which have resolved with Xanax. Initially is was felt on chest x-ray that she might have some pulmonary edema. She was given Lasix 20mg IV only times one but did not have much output and is still not having much urine output. She eating very little as it is causing her to be nauseated but she has had no vomiting since she has been here. She will go home. Prognosis is very poor. [facility] will meet them there this afternoon. TIME SPENT: More than 60 minutes. ANJANA
--- NOTE | 2021-02-24 10:00 | PN ---
DATE OF SERVICE: 02/18/21 SUBJECTIVE: The patient was seen and examined with the nurse practitioner. The patient's condition has deteriorated some. The patient is going to be on Hospice. The patient has metastatic liver/lung disease which has spread to the peritoneum. The patient has declined to see an oncologist or undergo further testing such as an upper GI or mammogram. The patient's breath sounds are congested. She has mild wheezing bilaterally. She seems to be in distress. She has been on Morphine Sulfate q.3hr. Prognosis is poor. TIME SPENT: More than 30 minutes. Plan and coordination of the patient's care discussed in the presence of nurse. ANJANA
--- NOTE | 2021-02-24 10:02 | PN ---
BILLING 02/13/21 ADMISSION DAY LEVEL 5 02/14/21 EXTENSIVE - TOTAL TIME SPENT MORE THAN ONE HOUR 02/15/21 EXTENSIVE - TOTAL TIME SPENT MORE THAN ONE HOUR 02/16/21 INTERMEDIATE 02/17/21 INTERMEDIATE 02/18/21 D IN DISCHARGE MTDD
== END 2021-02-18 13:55 | disposition hospice, home (50) | DRG 437 ==
LOC: LAB 13:37 → MEDSURG A 13:58
PROVIDERS: ADMIT Internal Medicine; ATTEND Internal Medicine